=== PATIENT | female | born 1970 | race Caucasian/White ===

== ENCOUNTER 2017-08-23 11:31 | Emergency (ER) | payer OTHER, SELFPAY ==
[2017-08-23 12:06] VITALS: BP 148/81; PULSE 94; RESP 20; TEMP 37.7; O2SAT 99; BMI 51.5
--- NOTE | 2017-08-23 12:28 | HMH.EDUTC ---
[facility] [place] Disposition Clinical Impression: Strep throat, Exposure to influenza Disposition: Home, Self-Care Condition on Discharge: Good Instructions: How to Avoid a Cold or Flu, DI for Strep Throat Additional Instructions: * You had an injection of bicillin so no further antibiotics are necessary. * change toothbrush and toothpaste 24-48 hours after starting antibiotic * Monitor Temp. Tylenol every 4 hours as needed no more then 5 times a day or 4000mg in 24 hours and/or ibuprofen every 6 hours as needed no more then 3200mg in 24 hours (as long as your primary care doctor has told you that it is ok to take both) for fever/aches/pain. ER if fever no less than 101 despite tylenol and Ibuprofen * Encourage fluids, water, gatorade, powerade, pedialyte if /toddler/child * cold fluids, popsicles, ice cream feel good * you are contagious until you have taken the antibiotic for 24 hours. * Avoid kissing anyone, including parents. No eating or drinking after anyone. You are contagious. Referrals: Darwin Montana MD [Primary Care Provider] - ( Follow up IMMEDIATELY for new or worsening symptoms OR no noticeable improvement over the next 24-48 hours. 911 for difficulty breathing or swallowing ) Forms: Work/School Release Time of Disposition: 12:33 Medical Decision Making Vital Signs: 08/23/17 12:06 Temperature 99.8 F H Temperature Source Temporal Artery Scan Pulse Rate [Right Brachial] 94 H Respiratory Rate 20 Blood Pressure [Right Arm] 148/81 Blood Pressure Mean [Right Arm] 103 Blood Pressure Source [Right Arm] Automatic Cuff Blood Pressure Position [Right Arm] Sitting 02 Sat by Pulse Oximetry 99 Oxygen Delivery Method Room Air - Lab Data Lab results reviewed: Yes: I reviewed the patient's lab results. Flu A neg Flu B neg Strep positive Orders (Tests/Meds): ED MEDICATIONS Discontinued Medications Generic Name Dose Route Start Last Admin Trade Name Freq PRN Reason Stop Dose Admin Penicillin G Benzathine 1,200,000 unit 08/23/17 12:28 08/23/17 12:35 Bicillin La 1,200,000 Units/2ml Syringe IM 08/23/17 12:29 1,200,000 unit ONCE ONE Administration Protocol - Willi Inquiry Pt receiving controlled substance: No - Reevaluation(s) Time: 12:25 Reevaluation #1: Discussed allergies with pt. 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 Aware computer list PCN G. States PCP told her parents she was allergic as an but she knows for a fact that she has taken amoxicillin and rocephin without difficulty and possibly even augment and PCN injection but can't be sure . She wants the injection aware it is a PCN and the risk for side effects. She states she will monitor for a reaction but feels confident she can take it. [facility] [place] HPI - General Stated complaint: body aches, fever, sore throat Time Seen by Provider: 08/23/17 12:15 Mode of Arrival: Ambulatory Source of Information: Patient Limitations: No Limitations Description of Symptoms (Recalled from Triage Doc. by RN): SORE THROAT, BODYACHES, FEVER HEENT Symptoms (Recalled from RN notes): Yes (SORE THROAT) Resp Symptoms (Recalled from RN notes): No Skin Symptoms (Recalled from RN notes): No MS Symptoms (Recalled from RN notes): Yes (BODYACHES) Functional Status (Recalled from RN notes): N/A - History of Present Illness Provider Complaint: c/o waking up yesterday with mild sore throat. Didn't think much of it then suddenly at 4:15pm, fever, aches, chills. Tyelnol and motrin took hours to drop temp to normal last night but did eventually help. Feels worse this morning. Thinks exposed to flu at work. Son dx flu B today at same time as patient's visit. - Related Data Allergies Allergy/AdvReac Type Severity Reaction Status Date / Time cefaclor [CEFACLOR] Allergy Intermediate I-RASH Verified 08/23/17 12:38 diphenhydramine Allergy Intermediate CRAZY Verified 08/23/17 12:38 [DIPHE
--- NOTE | 2017-08-23 12:32 | ED_ITS ---
[facility] [place] Clinical Impression: Strep throat, Exposure to influenza Disposition: Home, Self-Care Condition on Discharge: Good Instructions: How to Avoid a Cold or Flu, DI for Strep Throat Additional Instructions: * You had an injection of bicillin so no further antibiotics are necessary. * change toothbrush and toothpaste 24-48 hours after starting antibiotic * Monitor Temp. Tylenol every 4 hours as needed no more then 5 times a day or 4000mg in 24 hours and/or ibuprofen every 6 hours as needed no more then 3200mg in 24 hours (as long as your primary care doctor has told you that it is ok to take both) for fever/aches/pain. ER if fever no less than 101 despite tylenol and Ibuprofen * Encourage fluids, water, gatorade, powerade, pedialyte if /toddler/ child * cold fluids, popsicles, ice cream feel good * you are contagious until you have taken the antibiotic for 24 hours. * Avoid kissing anyone, including parents. No eating or drinking after anyone. You are contagious. Referrals: Darwin Montana MD [Primary Care Provider] - ( Follow up IMMEDIATELY for new or worsening symptoms OR no noticeable improvement over the next 24-48 hours. 911 for difficulty breathing or swallowing ) Forms: Work/School Release Time of Disposition: 12:33 Medical Decision Making Vital Signs: 08/23/17 12:06 Temperature 99.8 F H Temperature Source Temporal Artery Scan Pulse Rate [Right Brachial] 94 H Respiratory Rate 20 Blood Pressure [Right Arm] 148/81 Blood Pressure Mean [Right Arm] 103 Blood Pressure Source [Right Arm] Automatic Cuff Blood Pressure Position [Right Arm] Sitting 02 Sat by Pulse Oximetry 99 Oxygen Delivery Method Room Air - Lab Data Lab results reviewed: Yes: I reviewed the patient's lab results. Flu A neg Flu B neg Strep positive Orders (Tests/Meds): ED MEDICATIONS Discontinued Medications Generic Name Dose Route Start Last Admin Trade Name Freq PRN Reason Stop Dose Admin Penicillin G Benzathine 1,200,000 unit 08/23/17 12:28 08/23/17 12:35 Bicillin La 1,200,000 Units/2ml Syringe IM 08/23/17 12:29 1,200,000 unit ONCE ONE Administration Protocol - Willi Inquiry Pt receiving controlled substance: No - Reevaluation(s) Time: 12:25 Reevaluation #1: Discussed allergies with pt. 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 Aware computer list PCN G. States PCP told her parents she was allergic as an infant but she knows for a fact that she has taken amoxicillin and rocephin without difficulty and possibly even augment and PCN injection but can't be sure . She wants the injection aware it is a PCN and the risk for side effects. She states she will monitor for a reaction but feels confident she can take it. [facility] [place] - General Stated complaint: body aches, fever, sore throat Time Seen by Provider: 08/23/17 12:15 Mode of Arrival: Ambulatory Source of Information: Patient Limitations: No Limitations Description of Symptoms (Recalled from Triage Doc. by RN): SORE THROAT, BODYACHES, FEVER HEENT Symptoms (Recalled from RN notes): Yes (SORE THROAT) Resp Symptoms (Recalled from RN notes): No Skin Symptoms (Recalled from RN notes): No MS Symptoms (Recalled from RN notes): Yes (BODYACHES) Functional Status (Recalled from RN notes): N/A - History of Present Illness Provider Complai
[2017-08-23 12:47] VITALS: BP 148/81; PULSE 94; RESP 20; TEMP 37.7; O2SAT 99
[2017-08-23 12:48] LABS: UTC Influenza A Antigen Negative (Negative); UTC Influenza B Antigen Negative (Negative); UTC Strep Screen (Rapid) Positive (Negative)
== END 2017-08-23 12:48 | disposition home or self-care (01) ==
PROVIDERS: Emergency Provider Nurse Practitioner Family; Family Provider Internal Medicine Adolescent Medicine; PCP Internal Medicine Adolescent Medicine
DX: J02.0 Streptococcal pharyngitis (principal); F41.8 Other specified anxiety disorders; Z20.828 Contact with and (suspected) exposure to other viral communicable diseases; Z88.1 Allergy status to other antibiotic agents
CPT/HCPCS: 87804; 87880; 96372; 99202; J0561

== ENCOUNTER 2018-07-07 11:12 | Inpatient (IN) ==
--- NOTE | 2018-07-07 11:34 | Emergency Department Note ---
[facility] [place] Clinical Impression: Pneumonia Qualifiers: Pneumonia type: due to unspecified organism Laterality: bilateral Lung location: unspecified part of lung Qualified Code(s): J18.9 - Pneumonia, unspecified organism Disposition: Xfer Other Condition on Discharge: Fair Additional Instructions: Based on CXR/decreasing sats, will transfer patient to ER for possible admission. Referrals: Darwin Montana MD [Primary Care Provider] - Time of Disposition: 12:52 Medical Decision Making - Willi Inquiry Pt receiving controlled substance: No Vital Signs: 07/07/18 11:24 Temperature 99.2 F Temperature Source Oral Pulse Rate [Left Radial] 117 H Respiratory Rate 18 Blood Pressure [Right Arm] 125/68 Blood Pressure Mean [Right Arm] 87 Blood Pressure Source [Right Arm] Automatic Cuff Blood Pressure Position [Right Arm] Sitting 02 Sat by Pulse Oximetry 91 L Oxygen Delivery Method Room Air - Lab Data Lab results reviewed: Yes: I reviewed the patient's lab results. Lab Results 07/07/18 11:13: Influenza Type A Ag Negative, Influenza Type B Ag Negative rapid flu Orders (Tests/Meds): ORDERS Category Date Time Status CXR 2 view (NOT portable) [XR chest 2V] Stat Exams 07/07/18 11:47 Taken - Radiology Data #1 Image(s): Chest Image Reviewed: Yes I reviewed the patient's radiology image Preliminary Findings: Abnormal [facility] [place]PI - General Stated complaint: vomiting,fever,achey Time Seen by Provider: 07/07/18 11:34 Mode of Arrival: Wheelchair Source of Information: Patient Limitations: No Limitations Description of Symptoms (Recalled from Triage Doc. by RN): c/o aching, fever, vomiting and cough since yesterday HEENT Symptoms (Recalled from RN notes): Yes (fever, aches) Resp Symptoms (Recalled from RN notes): Yes (cough, congestion) Skin Symptoms (Recalled from RN notes): No MS Symptoms (Recalled from RN notes): No Functional Status (Recalled from RN notes): wnl - History of Present Illness Onset (ago): day(s) Location: head, chest Severity: moderate Consistency: intermittent Relieving factors: none Exacerbating factors: none Treatments prior to arrival: NSAID - Related Data Allergies Allergy/AdvReac Type Severity Reaction Status Date / Time cefaclor [CEFACLOR] Allergy Intermediate I-RASH Verified 08/23/17 12:38 diphenhydramine Allergy Intermediate CRAZY Verified 08/23/17 12:38 [DIPHENHYDRAMINE] promethazine [From PHENERGAN] Allergy Intermediate CRAZY Verified 08/23/17 12:38 temazepam [TEMAZEPAM] Allergy Intermediate CRAZY Verified 08/23/17 12:38 penicillin G [PENICILLIN G] Allergy Unknown Verified 08/23/17 12:38 - Worker's Comp Is this a Worker's Comp case?: No [facility] History - Hepatitis A Screen Drug use history?: No High risk sexual behaviors?: No History of sexually transmitted infection?: No Currently employed?: No Childcare worker?: No Do you have indoor plumbing?: Yes Do you have electricity?: Yes Attestation statement:: This patient has been screened for Hepatitis A risk factors. I have reviewed the patient's past medical history: Yes Medical History: Reports:: Anxiety, Depression Denies:: Cancer, Diabetes Mellitus Type 1, Diabetes Mellitus Type 2, Hypertension, MRSA Laterality Cases: Bilateral: Tonsillectomy Other Surgeries: Yes: , Tubal Ligation, Other (cholecystectomy and tonsillectomy) Amputation: No - Social History Smoking Status: Never smoker Alcohol Intake: never - Psychiatric History Expresses thoughts of harming self/others: None Suicide Plan Description: No Plan Pschychiatric History:: Reports:: Anxiety, Depression ROS Obtained: Yes Systems reviewed as appropriate & no additional complaints - Constitutional Constitutional: Reports body ache, Reports chills, Reports lethargy, Reports weakness - ENT Ears, Nose, Mouth, and Throat: Denies otalgia, Reports nasal discharge, Reports sinus pressure, Reports sore throat - Cardiovascular Cardiovascular: Denies chest pain - Respiratory Respiratory: Yes chest congestion, Yes cough, Yes wheezing - Gastrointestinal Gastrointestingal: Reports: nausea, vomiting - Integumentary/Breasts Skin/Breast: Denies rash Physical Exam - General General appearance: alert, other (mild distress noted) - Head Head exam: atraumatic, normocephalic - Expanded ENT Exam Nose exam: Present: sinus tenderness Throat exam: Present: tonsillar erythema - Neck Neck exam: Present: normal inspection - Respiratory Respiratory exam: Present: wheezes, other - Expanded Respiratory Exam Location: Left: wheezes, rales, Right: wheezes, rales, Upper: wheezes, rales, Lower: wheezes, rales - Cardiovascular Cardiovascular exam: Present: tachycardia - Abdominal Exam Abdominal exam: Present: soft - Neurological Exam Neurological exam: Present: alert, oriented X3 - Skin Skin exam: Present: warm, dry, intact, normal color
--- NOTE | 2018-07-07 13:21 | Emergency Department Note ---
ED Disposition Clinical Impression: Hypoxia Community acquired pneumonia Qualifiers: Laterality: right Lung location: upper lobe of lung Qualified Code(s): J18.1 - Lobar pneumonia, unspecified organism Disposition: Still a Patient Condition on Discharge: Fair Additional Instructions: Based on CXR/decreasing sats, will transfer patient to ER for possible admission. Referrals: Darwin Montana MD [Primary Care Provider] - - Critical Care Critical Care Time: No Attestation: On 07/07/18, the high probability of a clinically significant, sudden or life threatening deterioration of the following system(s) required my full and direct attention, intervention and personal management. The time I documented below is in addition to time spent performing reported procedures but includes the following listed in this critical care notation. Medical Decision Making - Willi Inquiry Pt receiving controlled substance: No Vital Signs: 07/07/18 11:24 07/07/18 13:06 Temperature 99.2 F Temperature Source Oral Pulse Rate [Left Radial] 117 H 112 H Respiratory Rate 18 28 H Blood Pressure [Right Arm] 125/68 116/64 Blood Pressure Mean [Right Arm] 87 81 Blood Pressure Source [Right Arm] Automatic Cuff Automatic Cuff Blood Pressure Position [Right Arm] Sitting Sitting 02 Sat by Pulse Oximetry 91 L 94 L Oxygen Delivery Method Room Air Nasal Cannula Oxygen Flow Rate (LPM) 2 - Lab Data Lab Results 07/07/18 11:13: Influenza Type A Ag Negative, Influenza Type B Ag Negative 07/07/18 13:10: WBC 32.4 H*, RBC 4.43, Hgb 11.8 L, Hct 38.1, MCV 86.0, MCH 26.7 L, MCHC 31.1 L, RDW 14.6, Plt Count 295, MPV 7.5, Neut % (Auto) 92.9 H, Lymph % (Auto) 3.4 L, Crawford % (Auto) 2.6, Eos % (Auto) 0.8, Baso % (Auto) 0.3, Neut # (Auto) 30.1 H, Lymph # (Auto) 1.1, Crawford # (Auto) 0.9, Eos # (Auto) 0.3, Baso # (Auto) 0.1, Total Counted 100, Neutrophils % (Manual) 89 H, Band Neutrophils % 6.0, Lymphocytes % (Manual) 3 L, Monocytes % (Manual) 2, Platelet Estimate Normal, RBC Morphology Not Reportable 07/07/18 13:10: Sodium 138, Potassium 3.4 L, Chloride 103, Carbon Dioxide 22, Anion Gap 16.4 H, BUN 14, Creatinine 1.00, Estimated Creat Clear 59, Estimated GFR 59, Est GFR ( Amer) 71, Glucose 157 H, Calcium 8.6, Total Bilirubin 0.7, AST 14 L, ALT 22, Alkaline Phosphatase 67, Total Protein 7.3, Albumin 3.3 L , Globulin 4.0 H, Albumin/Globulin Ratio 0.8 L 07/07/18 13:10: Lactate 2.8 H Result diagrams: 07/07/18 13:10 07/07/18 13:10 Orders (Tests/Meds): ED MEDICATIONS Generic Name Dose Route Start Last Admin Trade Name Freq PRN Reason Stop Dose Admin Levofloxacin/Dextrose 750 mg in 150 mls @ 100 mls/hr 07/07/18 14:00 Levofloxacin 750mg/150ml Premix IV 07/21/18 13:59 Q24H MONI Protocol Sodium Chloride 10 ml 07/07/18 13:08 Saline Flush 10ml Syringe IV 08/06/18 13:07 NEEDED PRN Maintain IV Site Sodium Chloride 3 ml 07/07/18 13:14 Sodium Chloride 3% 15ml Neb IH 08/06/18 13:13 ONCE PRN INDUCE SPUTUM COLLECTION ORDERS Category Date Time Status Blood Culture Stat Micro 07/07/18 13:10 Received Sputum Culture & Gram Stain Stat Micro 07/07/18 13:29 Ordered - Radiology Data #1 Image(s): Chest Image Reviewed: Yes I have reviewed radiologist's interpretation Right upper lobe infiltrate. Lingular atelectasis versus infiltrate. - Physician Consults Physician Consulted: Tamanna Montana Time: 13:59 Reason -: Admission Comment/Response: Agrees to admit the patient to the hospital. We discussed the patient's clinical information, including history, exam, laboratory and radiology results and ED course. Per hospital procedure, I will write temporary bridge inpatient orders on the patient. Specific orders requested by the admitting physician: Continue oxygen, nebulizer treatments, Levaquin General Adult HPI - General Stated complaint: vomiting,fever,achey Time Seen by Provider: 07/07/18 13:18 Mode of Arrival: Wheelchair Source of Information: Patient Limitations: No Limitations Description of Symptoms (Recalled from ER Triage Doc. by RN): c/o aching, fever, vomiting and cough since yesterday - History of Present Illness HPI narrative: Sick for 2 weeks, thought it was a respiratory virus. Over the past 48 hours is worsened with shortness of air, productive cough, fever. Seen at the urgent treatment center and has a right upper lobe pneumonia. Hypoxic with a pulse ox of 88% on arrival. Placed on oxygen. Given 2 breathing treatments, DuoNeb and Xopenex. [place] improved after Xopenex. Sent to emergency department. Prior history of pneumonia many years ago. Former smoker. 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 Onset (ago): day(s) Location: head, chest Severity: moderate Relieving factors: none Exacerbating factors: none Treatments prior to arrival: NSAID - Related Data Allergies Allergy/AdvReac Type Severity Reaction Status Date / Time cefaclor [CEFACLOR] Allergy Intermediate I-RASH Verified 08/23/17 12:38 diphenhydramine Allergy Intermediate CRAZY Verified 08/23/17 12:38 [DIPHENHYDRAMINE] promethazine [From PHENERGAN] Allergy Intermediate CRAZY Verified 08/23/17 12:38 temazepam [TEMAZEPAM] Allergy Intermediate CRAZY Verified 08/23/17 12:38 penicillin G [PENICILLIN G] Allergy Unknown Verified 08/23/17 12:38 [facility] History - Hepatitis A Screen Drug use history?: No High risk sexual behaviors?: No History of sexually transmitted infection?: No Currently employed?: No Childcare worker?: No Do you have indoor plumbing?: Yes Do you have electricity?: Yes Attestation statement:: This patient has been screened for Hepatitis A risk factors. I have reviewed the patient's past medical history: Yes Medical History: Reports:: Anxiety, Depression Denies:: Cancer, Diabetes Mellitus Type 1, Diabetes Mellitus Type 2, Hypertension, MRSA Laterality Cases: Bilateral: Tonsillectomy Other Surgeries: Yes: , Tubal Ligation, Other (cholecystectomy and tonsillectomy) Amputation: No - Social History Smoking Status: Never smoker Alcohol Intake: never - Psychiatric History Expresses thoughts of harming self/others: None Suicide Plan Description: No Plan Pschychiatric History:: Reports:: Anxiety, Depression ROS Obtained: Yes All systems reviewed & no additional complaints - Constitutional Constitutional: Reports fever(s) - ENT Ears, Nose, Mouth, and Throat: Reports nasal discharge - Cardiovascular Cardiovascular: Denies chest pain - Respiratory Respiratory: Yes cough, Yes dyspnea, Yes excessive phlegm production Physical Exam - General General appearance: alert, other (mild distress noted) - Head Head exam: atraumatic, normocephalic - Eye Eye exam: Present: normal appearance, PERRL, EOMI - ENT ENT exam: Present: mucous membranes moist - Neck Neck exam: Present: normal inspection, trachea midline - Chest Chest inspection: Present: normal inspection, symmetric chest wall rise - Respiratory Respiratory exam: Present: normal lung sounds bilaterally - Cardiovascular Cardiovascular exam: Present: normal rhythm, tachycardia, normal heart sounds - Abdominal Exam Abdominal exam: Present: soft. Absent: distention, tenderness - Extremities Exam Extremities exam: Present: normal inspection - Neurological Exam Neurological exam: Present: alert, oriented X3 - Psychiatric Psychiatric exam: Present: normal affect, normal mood - Skin Skin exam: Present: warm, dry
[2018-07-07 13:26] LABS: Basophils # 0.1 K/mm3 (0-0.2); Basophils % 0.3 % (0.1-2.0); Eosinophils # 0.3 K/mm3 (0.0-0.4); Eosinophils % 0.8 % (0.1-12.0); Hematocrit 38.1 % (37.0-47.0); Hemoglobin 11.8 g/dL (12.2-16.2); Lymphocytes # 1.1 K/mm3 (0.7-4.5); Lymphocytes % 3.4 % (10-50); Mean Corpuscular HGB Conc 31.1 g/dL (31.8-35.4); Mean Corpuscular Hemoglobin 26.7 pg (27.0-31.2); Mean Platelet Volume 7.5 fl (7.4-10.4); Monocytes # 0.9 K/mm3 (0.1-1.0); Monocytes % 2.6 % (1.7-9.3); Neutrophils # 30.1 K/mm3 (1.8-7.8); Neutrophils % 92.9 % (37.0-80.0); Platelet Count 295 K/mm3 (142-424); Red Blood Count 4.43 M/mm3 (4.20-5.40); Red Cell Distribution Width 14.6 % (11.5-17.5); White Blood Count 32.4 K/mm3 (4.8-10.8)
[2018-07-07 13:37] LABS: Albumin Level 3.3 gm/dL (3.4-5.0); Albumin/Globulin Ratio 0.8 (1.1-1.8); Anion Gap 16.4 mEq/L (5-15); Bilirubin,Total 0.7 mg/dL (0.2-1.0); Calcium 8.6 mg/dL (8.5-10.1); Potassium 3.4 mmoL/L (3.5-5.1); Total Protein,Serum 7.3 gm/dL (6.4-8.2)
[2018-07-07 13:57] LABS: Lymphocytes % 3 % (10-50); Monocytes % 2 % (2-9); Neutrophils % 89 % (42-76); Total Cells Counted 100
--- NOTE | 2018-07-07 15:22 | Pharmacy Consult Notes ---
[facility] Pharmacy VTE Monitoring - Patient Demographics Admission date: 07/07/18 Report Date: 07/07/18 Time: 15:22 Allergies/Adverse Reactions: Patient Allergies cefaclor [CEFACLOR] Allergy (Intermediate, Verified 08/23/17 12:38) I-RASH diphenhydramine [DIPHENHYDRAMINE] Allergy (Intermediate, Verified 08/23/17 12:38) CRAZY promethazine [From PHENERGAN] Allergy (Intermediate, Verified 08/23/17 12:38) CRAZY temazepam [TEMAZEPAM] Allergy (Intermediate, Verified 08/23/17 12:38) CRAZY penicillin G [PENICILLIN G] Allergy (Unknown, Verified 08/23/17 12:38) Height: 1.63 m Weight: 145.15 kg Patient Problems: Current Active Problems Community acquired pneumonia (Acute) Hypoxia (Acute) - VTE Risk Labs: VTE Related Lab Results Hgb 11.8 g/dL (12.2-16.2) L 07/07/18 13:10 Hct 38.1 % (37.0-47.0) 07/07/18 13:10 Plt Count 295 K/mm3 (142-424) 07/07/18 13:10 BUN 14 mg/dL (7-18) 07/07/18 13:10 Creatinine 1.00 mg/dL (0.55-1.02) 07/07/18 13:10 Estimated Creat Clear 59 mL/min (50-200) 07/07/18 13:10 - Prophylaxis VTE Prophylaxis Ordered?: Yes Types of VTE Prophylaxis: TEDS Knee High Location of Applied Device: Bilateral Lower Extremeties - VTE Diagnosis Confirmed Treatment or plan recommended: Continue Current Treatment
--- NOTE | 2018-07-07 19:19 | History & Physical Report ---
*Admission Date: 07/07/18 *Chief complaint: Short of breath, fever *History of present illness: Ms. Escamilla is a 48-year-old female who initially presented to clinic today due to symptoms. [place] so bad she ended up going to the emergency room for more me treatment. Upon admission to the emergency room she reported shortness of breath, coughing with posttussive emesis, and fever to 101/102. Patient reports her mother was sick several weeks ago with a viral illness. Symptoms actually began approximately a month ago with suspected viral illness but had progressed to their severity over the past week. Complains of severe headache with coughing, Shortness of breath, tachycardia, productive cough. No antibiotics or steroids recently, not on oxygen at home [facility] History I have reviewed the patient's past medical history: Yes Medical History: Reports:: Anxiety, Depression Denies:: Cancer, Diabetes Mellitus Type 1, Diabetes Mellitus Type 2, Hypertension, MRSA Laterality Cases: Bilateral: Arthroscopy Knee, Tonsillectomy Other Surgeries: Yes: Cholecystectomy, , Tubal Ligation, Other (ablasion) Amputation: No - *Social History Educational Level: Completed College Smoking Status: Former smoker Alcohol Intake: current Alcohol Intake Frequency:: holidays/special occasions only Occupational Status: employed Housing: house Household Members: spouse - Psychiatric History Expresses thoughts of harming self/others: None Suicide Plan Description: No Plan Pschychiatric History:: Reports:: Anxiety, Depression *Family Hx:: Hyperlipidemia, Hypertension Review of Systems - Review of Systems Review of systems:: pertinent systems reviewed and negative unless documented below - *Neurologic Reports weakness Meds Home Medications Medication Instructions Recorded Confirmed Type Fluoxetine HCl 20 mg PO HS 07/07/18 07/07/18 History Metformin HCl 500 mg PO BID 07/07/18 07/07/18 History Allergies Allergy/AdvReac Type Severity Reaction Status Date / Time cefaclor [CEFACLOR] Allergy Intermediate I-RASH Verified 08/23/17 12:38 diphenhydramine Allergy Intermediate CRAZY Verified 08/23/17 12:38 [DIPHENHYDRAMINE] promethazine [From PHENERGAN] Allergy Intermediate CRAZY Verified 08/23/17 12:38 temazepam [TEMAZEPAM] Allergy Intermediate CRAZY Verified 08/23/17 12:38 penicillin G [PENICILLIN G] Allergy Unknown Verified 08/23/17 12:38 Exam Vital signs and Labs for Last 24 Hours: Temp Pulse Resp BP Pulse Ox 98 F 109 H 28 H 155/84 H 93 L 07/07/18 15:33 07/07/18 15:33 07/07/18 15:33 07/07/18 15:33 07/07/18 18:04 Laboratory Results - last 24 hr 07/07/18 11:13: Influenza Type A Ag Negative, Influenza Type B Ag Negative 07/07/18 13:10: WBC 32.4 H*, RBC 4.43, Hgb 11.8 L, Hct 38.1, MCV 86.0, MCH 26.7 L, MCHC 31.1 L, RDW 14.6, Plt Count 295, MPV 7.5, Neut % (Auto) 92.9 H, Lymph % (Auto) 3.4 L, [place] % (Auto) 2.6, Eos % (Auto) 0.8, Baso % (Auto) 0.3, Neut # (Auto) 30.1 H, Lymph # (Auto) 1.1, [place] # (Auto) 0.9, Eos # (Auto) 0.3, Baso # (Auto) 0.1, Total Counted 100, Neutrophils % (Manual) 89 H, Band Neutrophils % 6.0, Lymphocytes % (Manual) 3 L, Monocytes % (Manual) 2, Platelet Estimate Normal, RBC Morphology Not Reportable 07/07/18 13:10: Sodium 138, Potassium 3.4 L, Chloride 103, Carbon Dioxide 22, Anion Gap 16.4 H, BUN 14, Creatinine 1.00, Estimated Creat Clear 59, Estimated GFR 59, Est GFR ( Amer) 71, Glucose 157 H, Calcium 8.6, Total Bilirubin 0.7, AST 14 L, ALT 22, Alkaline Phosphatase 67, Total Protein 7.3, Albumin 3.3 L , Globulin 4.0 H, Albumin/Globulin Ratio 0.8 L 07/07/18 13:10: Lactate 2.8 H 07/07/18 17:35: Lactate 2.9 H I & O for Last 24 hours: Intake & Output 07/04/18 07/05/18 07/06/18 07/07/18 23:59 23:59 23:59 23:59 Intake Total 240 / 240 Balance 240 / 240 Weight 149.43 kg Microbiology Reports for the Last 24 Hours: Microbiology 07/07/18 13:29 Sputum - Expectorated Sputum Gram Stain - Final - Constitutional mild distress, obese - *Routine HEENT Exam Head: Present: normocephalic, atraumatic Eye: Present: EOMI, PERRL ENT: Present: mucous membranes moist, dentition normal - *Routine Neck Exam Present: supple. Absent: full ROM, JVD - *Routine Respiratory Exam Present: accessory muscle use, rales, respiratory distress, wheezes - *Routine Cardiovascular Exam Present: Normal S1, Normal S2, tachycardia. Absent: murmur - *Routine Abdominal Exam Present: soft, normoactive bowel sounds - *Routine Rectal Exam Patient deferred: visual exam - *Routine Exam Patient deferred: external exam - *Routine Extremities Exam Absent: cyanosis, clubbing, edema - *Routine Skin Exam Present: intact. Absent: cyanosis, erythema - *Routine Neurological Exam Present: alert, oriented X3. Absent: altered mental status Assessment and Plan (1) Severe sepsis Current visit: Yes Status: Acute Category: Medical Code(s): A41.9 - Sepsis, unspecified organism; R65.20 - Severe sepsis without septic shock Tachycardic greater than 90, white count greater than 14, suspected source with pneumonia, lactate 2.9 on admission. -Blood culture, sputum culture obtained -fluid bolus given -Initiated on broad-spectrum antibiotics with Levaquin due to allergies - (2) Leukocytosis Current visit: Yes Status: Acute Category: Medical Code(s): D72.829 - Elevated white blood cell count, unspecified Due to pneumonia -Monitor for improvement with a.m. labs (3) Community acquired pneumonia Current visit: Yes Status: Acute Qualifiers: Laterality: right Lung location: upper lobe of lung Qualified Code(s): J18.1 - Lobar pneumonia, unspecified organism Category: Medical Code(s): J18.9 - Pneumonia, unspecified organism Unknown etiology, workup for sepsis as per above -Continue supplemental oxygen, goal oxygen sat greater than 88 while asleep, greater than 92 while awake -Incentive spirometry -Treatments with Xopenex (4) Hypoxia Current visit: Yes Status: Acute Category: Medical Code(s): R09.02 - Hypoxemia
[2018-07-08 07:18] LABS: Basophils % 0.2 % (0.1-2.0); Eosinophils # 0.1 K/mm3 (0.0-0.4); Eosinophils % 0.3 % (0.1-12.0); Hematocrit 33.1 % (37.0-47.0); Lymphocytes # 2.8 K/mm3 (0.7-4.5); Lymphocytes % 14.1 % (10-50); Mean Corpuscular HGB Conc 30.8 g/dL (31.8-35.4); Mean Corpuscular Hemoglobin 26.5 pg (27.0-31.2); Mean Corpuscular Volume 86.1 fl (81-99); Mean Platelet Volume 7.4 fl (7.4-10.4); Monocytes # 0.5 K/mm3 (0.1-1.0); Monocytes % 2.6 % (1.7-9.3); Neutrophils # 16.3 K/mm3 (1.8-7.8); Neutrophils % 82.8 % (37.0-80.0); Platelet Count 219 K/mm3 (142-424); Red Blood Count 3.84 M/mm3 (4.20-5.40); Red Cell Distribution Width 14.8 % (11.5-17.5); White Blood Count 19.7 K/mm3 (4.8-10.8)
[2018-07-08 07:21] LABS: Calcium 8.2 mg/dL (8.5-10.1)
[2018-07-08 07:48] LABS: Hemoglobin 10.2 g/dL (12.2-16.2)
[2018-07-08 09:59] LABS: Eosinophils % 1 % (0-3); Lymphocytes % 12 % (10-50); Monocytes % 3 % (2-9); Neutrophils % 84 % (42-76); Total Cells Counted 100
[2018-07-08 10:00] LABS: Hypochromasia 1+
--- NOTE | 2018-07-08 11:30 | Progress Note ---
Internal Medicine - PN: Subj *Date: 07/08/18 *Time: 11:25 Interval history: Patient did well overnight. Complains of loose stools, 4 times in the past 12 hours. Suspect due to antibiotics or IV fluids. Otherwise remained afebrile, symptoms defervesced [place]. Stable on 2 L nasal cannula oxygen. Using incentive spirometer. Denies any nausea, vomiting, headache, chest pain. Cough somewhat wet Exam Vital signs and Labs for Last 24 Hours: Temp Pulse Resp BP Pulse Ox 97.5 F L 81 18 107/56 L 94 L 07/08/18 08:00 07/08/18 08:00 07/08/18 08:00 07/08/18 08:00 07/08/18 08:00 Laboratory Results - last 24 hr 07/07/18 11:13: Influenza Type A Ag Negative, Influenza Type B Ag Negative 07/07/18 13:10: WBC 32.4 H*, RBC 4.43, Hgb 11.8 L, Hct 38.1, MCV 86.0, MCH 26.7 L, MCHC 31.1 L, RDW 14.6, Plt Count 295, MPV 7.5, Neut % (Auto) 92.9 H, Lymph % (Auto) 3.4 L, [place] % (Auto) 2.6, Eos % (Auto) 0.8, Baso % (Auto) 0.3, Neut # (Auto) 30.1 H, Lymph # (Auto) 1.1, [place] # (Auto) 0.9, Eos # (Auto) 0.3, Baso # (Auto) 0.1, Total Counted 100, Neutrophils % (Manual) 89 H, Band Neutrophils % 6.0, Lymphocytes % (Manual) 3 L, Monocytes % (Manual) 2, Platelet Estimate Normal, RBC Morphology Not Reportable 07/07/18 13:10: Sodium 138, Potassium 3.4 L, Chloride 103, Carbon Dioxide 22, Anion Gap 16.4 H, BUN 14, Creatinine 1.00, Estimated Creat Clear 59, Estimated GFR 59, Est GFR ( Amer) 71, Glucose 157 H, Calcium 8.6, Total Bilirubin 0.7, AST 14 L, ALT 22, Alkaline Phosphatase 67, Total Protein 7.3, Albumin 3.3 L , Globulin 4.0 H, Albumin/Globulin Ratio 0.8 L 07/07/18 13:10: Lactate 2.8 H 07/07/18 17:35: Lactate 2.9 H 07/07/18 20:00: Lactate 1.6 07/08/18 06:54: WBC 19.7 H D, RBC 3.84 L, Hgb 10.2 L D, Hct 33.1 L, MCV 86.1, MCH 26.5 L, MCHC 30.8 L, RDW 14.8, Plt Count 219 D, MPV 7.4, Neut % (Auto) 82.8 H, Lymph % (Auto) 14.1, [place] % (Auto) 2.6, Eos % (Auto) 0.3, Baso % (Auto) 0.2, Neut # (Auto) 16.3 H, Lymph # (Auto) 2.8, [place] # (Auto) 0.5, Eos # (Auto) 0.1, Baso # (Auto) 0.0, Total Counted 100, Neutrophils % (Manual) 84 H, Lymphocytes % (Manual) 12, Monocytes % (Manual) 3, Eosinophils % (Manual) 1, Platelet Estimate Normal, Hypochromasia 1+ 07/08/18 06:54: Sodium 140, Potassium 3.0 L, Chloride 107, Carbon Dioxide 25, Anion Gap 11.0, BUN 12, Creatinine 0.72 D, Estimated Creat Clear 82, Estimated GFR 86, Est GFR ( Amer) 104 D, Glucose 133 H, Calcium 8.2 L I & O for Last 24 hours: Intake & Output 07/05/18 07/06/18 07/07/18 07/08/18 23:59 23:59 23:59 23:59 Intake Total 960 / 960 4156 / 4156 Balance 960 / 960 4156 / 4156 Weight 149.43 kg Microbiology Reports for the Last 24 Hours: Microbiology 07/07/18 13:29 Sputum - Expectorated Sputum Gram Stain - Final 07/07/18 13:29 Sputum - Expectorated Sputum Sputum Culture - Preliminary Narrative: - Constitutional No acute distress, obese - *Routine HEENT Exam Head: Present: normocephalic, atraumatic Eye: Present: EOMI, PERRL ENT: Present: mucous membranes moist, dentition normal - *Routine Neck Exam Present: supple. Absent: full ROM, JVD - *Routine Respiratory Exam Present: Good air movement bilaterally, Rales and crackles in right upper lobe, no wheeze - *Routine Cardiovascular Exam Present: Normal S1, Normal S2, tachycardia. Absent: murmur - *Routine Abdominal Exam Present: soft, normoactive bowel sounds - *Routine Rectal Exam Patient deferred: visual exam - *Routine Exam Patient deferred: external exam - *Routine Extremities Exam Absent: cyanosis, clubbing, edema - *Routine Skin Exam Present: intact. Absent: cyanosis, erythema - *Routine Neurological Exam Present: alert, oriented X3. Absent: altered mental status Assessment and Plan (1) Severe sepsis Current visit: Yes Status: Acute Category: Medical Code(s): A41.9 - Sepsis, unspecified organism; R65.20 - Severe sepsis without septic shock (2) Leukocytosis Current visit: Yes Status: Acute Category: Medical Code(s): D72.829 - Elevated white blood cell count, unspecified (3) Community acquired pneumonia Current visit: Yes Status: Acute Qualifiers: Laterality: right Lung location: upper lobe of lung Qualified Code(s): J18.1 - Lobar pneumonia, unspecified organism Category: Medical Code(s): J18.9 - Pneumonia, unspecified organism (4) Hypoxia Current visit: Yes Status: Acute Category: Medical Code(s): R09.02 - Hypoxemia - Assessment and plan all Dx Assessment and Plan for all problems:: Continues to require inpatient management. Continue oxygen, wean today. Showing improvement in symptoms but not stable for home discharge yet. Likely transition oral antibiotics tomorrow if you get off oxygen and discharge at that time.
--- NOTE | 2018-07-09 08:23 | Discharge Summary ---
General - General Admission date:: 07/07/18 Discharge date: 07/09/18 HPI HPI: Ms. Escamilla is a 48-year-old female who initially presented to clinic today due to symptoms. [place] so bad she ended up going to the emergency room for more me treatment. Upon admission to the emergency room she reported shortness of breath, coughing with posttussive emesis, and fever to 101/102. Patient reports her mother was sick several weeks ago with a viral illness. Symptoms actually began approximately a month ago with suspected viral illness but had progressed to their severity over the past week. Complains of severe headache with coughing, Shortness of breath, tachycardia, productive cough. No antibiotics or steroids recently, not on oxygen at home Hospital Course Hospital Course: Admitted for sepsis and community acquired pneumonia. Initiated on antibiotics and supplemental oxygen. Tolerated antibiotics well with defervescence of symptoms within the first 24 hours. Able to transition off nasal cannula oxygen on day 2 of admission. Stable off oxygen for greater than 12 hours prior to discharge home. Patient had significant improvement in symptoms, cough became a little bit more productive. Denied headache, fever, chills, nausea or vomiting on day of discharge. Still has some fatigue, recommended staying home from work until follows up in the outpatient setting. Objective Vital signs: Temp Pulse Resp BP Pulse Ox 98.6 F 78 18 129/63 93 L 07/09/18 08:00 07/09/18 08:00 07/09/18 08:00 07/09/18 08:00 07/09/18 08:00 Narrative: - Constitutional No acute distress, obese - *Routine HEENT Exam Head: Present: normocephalic, atraumatic Eye: Present: EOMI, PERRL ENT: Present: mucous membranes moist, dentition normal - *Routine Neck Exam Present: supple. Absent: full ROM, JVD - *Routine Respiratory Exam Present: Good air movement bilaterally, Rales in right upper lobe, no wheeze or crackles - *Routine Cardiovascular Exam Present: Normal S1, Normal S2, tachycardia. Absent: murmur - *Routine Abdominal Exam Present: soft, normoactive bowel sounds - *Routine Rectal Exam Patient deferred: visual exam - *Routine Exam Patient deferred: external exam - *Routine Extremities Exam Absent: cyanosis, clubbing, edema - *Routine Skin Exam Present: intact. Absent: cyanosis, erythema - *Routine Neurological Exam Present: alert, oriented X3. Absent: altered mental status Results Labs on day of discharge: Labs from last 24 hours 07/08/18 06:54 Total Counted 100 Neutrophils % (Manual) 84 H Lymphocytes % (Manual) 12 Monocytes % (Manual) 3 Eosinophils % (Manual) 1 Platelet Estimate Normal Hypochromasia 1+ DS: Diagnosis - Discharge Diagnosis (1) Severe sepsis Status: Resolved (2) Leukocytosis Status: Acute (3) Community acquired pneumonia Status: Acute (4) Hypoxia Status: Resolved (5) Morbid obesity with BMI of 50.0-59.9, adult Status: Chronic Problem details: Complicates all aspects of care Discharge Plan - Patient Discharge Instructions ACTIVITY: Continue current activity DIET: continue same diet Patient Instructions: DI for Pneumonia -- Adult, DI for Hypoxia - Follow up Plan Follow up with: Rich Nolen MD [Staff Physician] - 1 week Disposition: Home, Self-Jail Medications: Home Medications Medication Instructions Recorded Confirmed Type Fluoxetine HCl 20 mg PO HS 07/07/18 07/07/18 History Metformin HCl 500 mg PO BID 07/07/18 07/07/18 History levoFLOXacin [Levaquin 750mg 750 mg PO DAILY #5 tab 07/09/18 Rx tablet] Prescriptions/Medication Reconciliation: New levoFLOXacin [Levaquin 750mg tablet] 750 mg PO DAILY #5 tab Continue Fluoxetine HCl 20 mg PO HS Metformin HCl 500 mg PO BID
== END 2018-07-09 13:30 | disposition home or self-care (01) | DRG 193 ==
LOC: UTC 11:12 → 2ND 14:15
PROVIDERS: ADMIT Internal Medicine Adolescent Medicine; ATTEND Internal Medicine Adolescent Medicine
DX: R65.20 Severe sepsis without septic shock; E66.01 Morbid (severe) obesity due to excess calories; J18.9 Pneumonia, unspecified organism; Z68.43 Body mass index [BMI] 50.0-59.9, adult
CPT/HCPCS: 36415; 71020; 71046; 80048; 80053; 83605; 85007; 85025; 87040; 87070; 87205; 87804; 94640; 94761; 96365; 96367; 99284; J1956

== ENCOUNTER → 2019-03-06 08:18 | Outpatient (CLI) | payer OTHER, SELFPAY ==
[2019-03-06 08:59] LABS: Basophils % 0.4 % (0.1-2.0); Eosinophils # 0.2 K/mm3 (0.0-0.4); Eosinophils % 2.8 % (0.1-12.0); Hematocrit 38.5 % (37.0-47.0); Hemoglobin 12.1 g/dL (12.2-16.2); Lymphocytes # 2.7 K/mm3 (0.7-4.5); Lymphocytes % 32.5 % (10-50); Mean Corpuscular HGB Conc 31.4 g/dL (31.8-35.4); Mean Corpuscular Hemoglobin 26.6 pg (27.0-31.2); Mean Corpuscular Volume 84.9 fl (81-99); Mean Platelet Volume 6.5 fl (7.4-10.4); Monocytes # 0.3 K/mm3 (0.1-1.0); Monocytes % 4.1 % (1.7-9.3); Neutrophils % 60.1 % (37.0-80.0); Platelet Count 307 K/mm3 (142-424); Red Blood Count 4.54 M/mm3 (4.20-5.40); White Blood Count 8.3 K/mm3 (4.8-10.8)
[2019-03-06 10:55] LABS: Alanine Aminotransferase 17 U/L (12-78); Albumin Level 3.7 gm/dL (3.4-5.0); Albumin/Globulin Ratio 1.2 (1.1-1.8); Alkaline Phosphatase 74 U/L (46-116); Anion Gap 14.6 mEq/L (5-15); Aspartate Amino Transferase 16 U/L (15-37); Bilirubin,Total 0.4 mg/dL (0.2-1.0); Blood Urea Nitrogen 17 mg/dL (7-18); Calcium 8.9 mg/dL (8.5-10.1); Carbon Dioxide 28 mmol/L (21.0-32.0); Chloride 105 mmol/L (98-107); Chol/HDL Ratio 3.4 (1-3.5); Cholesterol 191 mg/dL (140-200); Creatinine,Serum 0.75 mg/dL (0.55-1.02); Estimated Glomerular Filt Rate 82 ml/min (>60); GFR (African American) 99 ML/MIN (>60); Glucose 107 mg/dL (74-106); HDL Cholesterol 56 mg/dL (29-89); LDL Cholesterol 119 mg/dL (0-130); Potassium 4.6 mmoL/L (3.5-5.1); Sodium 143 mmol/L (136-145); Thyroid Stimulating Hormone 2.89 uIU/ml (0.358-3.740); Total Protein,Serum 6.7 gm/dL (6.4-8.2); Triglycerides 80 mg/dL (30-200); VLDL Cholesterol 16 mg/dL (0-40)
== END ==
PROVIDERS: Visit Provider Internal Medicine Adolescent Medicine
DX: E66.01 Morbid (severe) obesity due to excess calories (principal)
CPT/HCPCS: 36415; 80053; 80061; 83036; 84443; 85025

== ENCOUNTER → 2019-04-04 08:45 | Outpatient (CLI) | payer OTHER, SELFPAY ==
--- NOTE | 2019-04-04 08:48 | MM_ITS ---
PROCEDURE: MM DIG SCREENING MAMM BI W/CAD CLINICAL INDICATION: SCREENING There is no personal or family history of breast cancer. COMPARISON: DMSB DIG MAMM-SCREEN [place] from 06/16/2015 TECHNIQUE: Standard CC and MLO images were obtained. R2 CAD reviewed. FINDINGS: The breasts are composed primarily of fat with scattered fibroglandular densities throughout both breasts. There is no suspicious lesion and no suspicious microcalcifications. IMPRESSION: Fatty type breast parenchyma with no suspicious lesions seen BI-RAD Category: 1 Negative FOLLOW-UP: 1YR 1 Year Follow-up (A letter has been sent to the patient regarding results of the study.) Dictated by: Dr. Karthikeyan Orozco MD 04/07/2019 16:[address] Karthikeyan Orozco MD in [place] 04/07/2019 16:03
== END ==
PROVIDERS: PCP Internal Medicine Adolescent Medicine; Visit Provider Internal Medicine Adolescent Medicine
DX: Z12.31 Encounter for screening mammogram for malignant neoplasm of breast (principal)
CPT/HCPCS: 77067

== ENCOUNTER → 2019-09-18 13:30 | Outpatient (CLI) | payer OTHER, SELFPAY ==
--- NOTE | 2019-09-18 13:35 | XR_ITS ---
PROCEDURE: XR KNEE RT 4V CLINICAL INDICATION: knee pain Right knee pain COMPARISON: No exams were available for comparison FINDINGS: Are severe osteoarthritic changes at the medial compartment loss of joint space and genu varum with prominent osteophytes. There are mild osteoarthritic changes of the lateral compartment and severe osteoarthritis of the patellofemoral joint. No acute fracture or dislocation. Other findings:None. IMPRESSION: Severe osteoarthritis of the medial compartment and the patellofemoral joint Dictated by: Yadiel Haynes MD 09/18/2019 14:00 Electronically signed by Yadiel Haynes MD in [place] 09/18/2019 14:00
== END ==
PROVIDERS: PCP Internal Medicine Adolescent Medicine; Visit Provider Orthopaedic Surgery
DX: M25.561 Pain in right knee (principal)
CPT/HCPCS: 73564

== ENCOUNTER → 2020-03-27 15:00 | Outpatient (CLI) | payer OTHER, SELFPAY ==
[2020-03-27 17:49] LABS: Hemoglobin A1C 6.1 % (4.0-6.0)
== END ==
PROVIDERS: Visit Provider Internal Medicine Adolescent Medicine
DX: Z00.00 Encounter for general adult medical examination without abnormal findings (principal); E11.9 Type 2 diabetes mellitus without complications; Z79.84 Long term (current) use of oral hypoglycemic drugs
CPT/HCPCS: 83036

== ENCOUNTER → 2020-10-17 09:05 | Outpatient (CLI) | payer OTHER, SELFPAY ==
--- NOTE | 2020-10-17 09:09 | XR_ITS ---
PROCEDURE: XR KNEE RT 4V CLINICAL INDICATION: BL knee pain COMPARISON: CR XR KNEE RT 4V from 09/18/2019 FINDINGS: There is severe osteoarthritic changes of the medial compartment and patellofemoral joint which appears similar compared to 09/18/2019. Prominent endplate osteophytes are present with loss of joint space medially. No acute fracture Other findings:None. IMPRESSION: No change severe osteoarthritis of the right knee Dictated by: Yadiel Haynes MD 10/17/2020 18:35 Yadiel Haynes MD in [place] 10/17/2020 18:35
--- NOTE | 2020-10-17 09:09 | XR_ITS ---
PROCEDURE: XR KNEE LT 4V CLINICAL INDICATION: BL knee pain COMPARISON: CR XR KNEE RT 4V from 09/18/2019 FINDINGS: Severe osteoarthritic changes are present involving the medial compartment and patellofemoral joint. A 13 mm calcific density projects over the medial aspect of the intercondylar notch of the femur and may be due to an atypical osteophyte is compared to a loose body. Other findings:None. IMPRESSION: Severe osteoarthritic changes of the left knee as described above Dictated by: Yadiel Haynes MD 10/17/2020 18:34 Yadiel Haynes MD in [place] 10/17/2020 18:34
== END ==
PROVIDERS: PCP Internal Medicine Adolescent Medicine; Visit Provider Orthopaedic Surgery
DX: M17.12 Unilateral primary osteoarthritis, left knee (principal); M17.11 Unilateral primary osteoarthritis, right knee
CPT/HCPCS: 73564

== ENCOUNTER → 2021-04-22 15:27 | Outpatient (CLI) | payer OTHER, SELFPAY ==
[2021-04-22 15:57] LABS: Influenza A, PCR Not Detected (NotDetected); Influenza B, PCR Not Detected (NotDetected)
[2021-04-22 16:22] LABS: Coronavirus 19, PCR Detected (NotDetected)
== END ==
PROVIDERS: PCP Internal Medicine Adolescent Medicine; Visit Provider Internal Medicine
DX: Z20.822 Contact with and (suspected) exposure to COVID-19 (principal); U07.1 COVID-19
CPT/HCPCS: C9803; U0003; U0005

== ENCOUNTER → 2021-04-23 12:18 | Outpatient (CLI) | payer OTHER, SELFPAY ==
[2021-04-23 12:34] VITALS: BP 138/71; PULSE 94; RESP 17; TEMP 37.1; O2SAT 94
== END ==
PROVIDERS: PCP Internal Medicine Adolescent Medicine; Visit Provider Internal Medicine
DX: U07.1 COVID-19 (principal); Z23 Encounter for immunization
CPT/HCPCS: 96365

== ENCOUNTER → 2021-07-29 09:27 | Outpatient (CLI) | payer OTHER, SELFPAY | PROVIDERS: Visit Provider Nurse Practitioner | DX: Z11.52 Encounter for screening for COVID-19 (principal) ==

== ENCOUNTER 2021-08-31 13:34 | Emergency (ER) | payer OTHER, SELFPAY ==
[2021-08-31 13:46] VITALS: BP 133/91; PULSE 73; RESP 22; TEMP 36.9; O2SAT 99; BMI 52.0
--- NOTE | 2021-08-31 13:55 | HMH.EDUTC ---
[facility] [place] Impression: Bronchitis, Cough Disposition: Home, Self-Care Condition on Discharge: Good Instructions: Cough, Acute Bronchitis, Methylprednisolone, Benzonatate Additional Instructions: ? Monitor temp. Tylenol every 4 hours as needed and / or ibuprofen every 6 hours as needed ( As long as your primary care physician has told you that it ok to take both. For fever/aches/pains ER if no less than 101 despite Tylenol or Motrin ? Humidifier/vaporizer or hot steamy shower Flonase may help with Post nasal drip *Tessalon Perles will not cause drowsiness but use at bedtime to help stop cough so that you may get some rest. *Start steroid today. Helps with inflammation therefore, cough and wheezing. Follow directions on the package. Reviewed side effects. Patient reports taking them before. Follow up IMMEDIATELY for new or worsening of symptoms OR no noticeable improvement over the next 48-72 hours. 911 immediately for any life threatening symptoms such as chest pain or difficulty breathing Prescriptions: Benzonatate [Benzonatate 100mg cap] 100 mg PO Q8HP PRN #15 cap PRN Reason: Cough Transmission Status: Pending to [facility] methylPREDNISolone [Medrol 4mg tab] 4 mg PO DIRECTED #21 tab Transmission Status: Pending to [facility] Referrals: Rich Nolen MD [Primary Care Provider] - As needed Time of Disposition: 14:11 Medical Decision Making - Willi Inquiry Pt receiving controlled substance: No Willi was queried for this patient: No Vital Signs: 08/31/21 13:46 Temperature 98.4 F Temperature Source Oral Pulse Rate [Right Radial] 73 Respiratory Rate 22 Blood Pressure [Right Arm] 133/91 H Blood Pressure Mean [Right Arm] 105 Blood Pressure Source [Right Arm] Automatic Cuff Blood Pressure Position [Right Arm] Sitting 02 Sat by Pulse Oximetry 99 Oxygen Delivery Method Room Air [facility] [place] - General Stated complaint: cough Time Seen by Provider: 08/31/21 13:55 Mode of Arrival: Ambulatory Source of Information: Patient Limitations: No Limitations Description of Symptoms (Recalled from Triage Doc. by RN): Pt stated that she has a cough that has increased since Tuesday night. HEENT Symptoms (Recalled from RN notes): No Resp Symptoms (Recalled from RN notes): No Skin Symptoms (Recalled from RN notes): No MS Symptoms (Recalled from RN notes): No Functional Status (Recalled from RN notes): n/a - History of Present Illness Provider Complaint: Patient states that she has had a cough since Wed States that it has continued get worse State that she thinks it started after she done some bath fizz States that she hasnt had any sinus congestion, denies fever denies feeling ill States that she has just had a worsening cough and nonproductive - Related Data Home Medications Medication Instructions Recorded Confirmed acetaminophen 500 mg capsule 1,000 mg PO Q4H PRN cap 03/28/19 02/20/21 ibuprofen 200 mg tablet 500 mg PO QID tab 03/28/19 02/20/21 omeprazole 20 mg capsule,delayed 20 mg PO DAILY #30 cap 03/28/19 02/20/21 release metformin 500 mg tablet 500 mg PO BID tab 02/20/21 02/20/21 Previous Rx's Medication Instructions Recorded Benzonatate [Benzonatate 100mg 100 mg PO Q8HP PRN #15 cap 08/31/21 cap] methylPREDNISolone [Medrol 4mg 4 mg PO DIRECTED #21 tab 08/31/21 tab] Allergies Allergy/AdvReac Type Severity Reaction Status Date / Time diphenhydramine Allergy Intermediate CRAZY Verified 08/31/21 13:55 [DIPHENHYDRAMINE] promethazine [From PHENERGAN] Allergy Intermediate CRAZY Verified 08/31/21 13:55 temazepam [TEMAZEPAM] Allergy Intermediate CRAZY Verified 08/31/21 13:55 cefaclor [From Ceclor] Allergy Verified 02/20/21 16:29 - Worker's Comp Is this a Worker's Comp case?: No Is this an H Worker's Comp?: No Is this a [place] Worker's Comp?: No [facility] History - Hepatitis A Screen Drug use history?: No High risk sexual beh
[2021-08-31 14:21] VITALS: BP 133/91; PULSE 73; RESP 22; TEMP 37; O2SAT 99
== END 2021-08-31 14:21 | disposition home or self-care (01) ==
PROVIDERS: Emergency Provider Nurse Practitioner; PCP Internal Medicine Adolescent Medicine
DX: J20.9 Acute bronchitis, unspecified (principal); E11.9 Type 2 diabetes mellitus without complications
CPT/HCPCS: 99212; G0463

== ENCOUNTER 2021-10-15 16:07 | Emergency (ER) | payer OTHER, SELFPAY ==
[2021-10-15 16:24] VITALS: BP 154/95; PULSE 78; RESP 19; TEMP 36.9; O2SAT 93; BMI 49.6
--- NOTE | 2021-10-15 16:27 | HMH.EDUTC ---
[facility] Disposition Clinical Impression: Bronchitis Disposition: Home, Self-Care Condition on Discharge: Good Instructions: DI for Acute Bronchitis Additional Instructions: Start antibiotic today. Be sure to complete entire prescription even if feeling better Tylenol and ibuprofen as needed for pain or fever Humidifier/vaporizer/hot steamy shower Follow-up with primary care tomorrow. Follow-up immediately in the ER of the [facility] for new or worsening symptoms or no noticeable improvement over the next 48-72 hours. Marlene Osorio will not cause drowsiness to use at bedtime to help stop cough so that she can get some sleep Start steroids today. Helps with inflammation therefore coughing and wheezing. Follow directions on package. Prescriptions: Benzonatate [Benzonatate 100mg cap] 100 mg PO BID PRN 7 Days #14 cap PRN Reason: Cough Transmission Status: Pending to [facility] predniSONE [Prednisone 20mg Tab] 20 mg PO BID #10 tab Transmission Status: Pending to [facility] Azithromycin [Zithromax 250mg tab] 250 mg PO DIRECTED #6 tab Transmission Status: Pending to [facility] Referrals: Rich Nolen MD [Primary Care Provider] - Time of Disposition: 16:32 Medical Decision Making - Willi Inquiry Pt receiving controlled substance: No [facility] HPI - General Chief complaint: Urgent [facility] Stated complaint: cough Time Seen by Provider: 10/15/21 16:27 Mode of Arrival: Ambulatory Source of Information: Patient Limitations: No Limitations - History of Present Illness Provider Complaint: 51 yr old female presents for cough,dark nasal drainage, nasal congestion and sinus pressure. - Related Data Home Medications Medication Instructions Recorded Confirmed acetaminophen 500 mg capsule 1,000 mg PO Q4H PRN cap 03/28/19 08/31/21 ibuprofen 200 mg tablet 500 mg PO QID tab 03/28/19 02/20/21 omeprazole 20 mg capsule,delayed 20 mg PO DAILY #30 cap 03/28/19 02/20/21 release metformin 500 mg tablet 500 mg PO BID tab 02/20/21 02/20/21 Previous Rx's Medication Instructions Recorded Benzonatate [Benzonatate 100mg 100 mg PO Q8HP PRN #15 cap 08/31/21 cap] methylPREDNISolone [Medrol 4mg 4 mg PO DIRECTED #21 tab 08/31/21 tab] Azithromycin [Zithromax 250mg 250 mg PO DIRECTED #6 tab 10/15/21 tab] Benzonatate [Benzonatate 100mg 100 mg PO BID PRN 7 Days #14 cap 10/15/21 cap] predniSONE [Prednisone 20mg 20 mg PO BID #10 tab 10/15/21 Tab] Allergies Allergy/AdvReac Type Severity Reaction Status Date / Time diphenhydramine Allergy Intermediate CRAZY Verified 08/31/21 13:55 [DIPHENHYDRAMINE] promethazine [From PHENERGAN] Allergy Intermediate CRAZY Verified 08/31/21 13:55 temazepam [TEMAZEPAM] Allergy Intermediate CRAZY Verified 08/31/21 13:55 cefaclor [From Ceclor] Allergy Verified 02/20/21 16:29 [facility] History - Hepatitis A Screen Attestation statement:: This patient has been screened for Hepatitis A risk factors. I have reviewed the patient's past medical history: Yes Medical History: Reports:: Anxiety, Depression, Gastroesophageal Reflux Disease(GERD) Denies:: Cancer, Diabetes Mellitus Type 1, Diabetes Mellitus Type 2, Hypertension, Internal Pacemaker, Lung Disease, MRSA, Seizures Laterality Cases: Bilateral: Arthroscopy Knee, Tonsillectomy Other Surgeries: Yes: Cholecystectomy, Colonoscopy, , Tubal Ligation, Other. No: Pacemaker Amputation: No Fractures: No - Social History Smoking Status: Former smoker Alcohol Intake: never Alcohol Intake Frequency:: holidays/special occasions only Substance Use Type: denies use Occupational Status: employed Housing: house Household Members: spouse - Psychiatric History Pschychiatric History:: Reports:: Anxiety, Depression Family Hx:: Hyperlipidemia, Hypertension Comment: ABLATION ROS Obtained: Yes Systems reviewed as appropriate & no additional complaints - Constitut
[2021-10-15 16:39] VITALS: BP 154/95; PULSE 78; RESP 19; TEMP 36.9
== END 2021-10-15 16:41 | disposition home or self-care (01) ==
PROVIDERS: Emergency Provider Nurse Practitioner Family; PCP Internal Medicine Adolescent Medicine
DX: J40 Bronchitis, not specified as acute or chronic (principal); K21.9 Gastro-esophageal reflux disease without esophagitis; F32.A Depression, unspecified; F41.9 Anxiety disorder, unspecified; Z79.1 Long term (current) use of non-steroidal anti-inflammatories (NSAID); Z79.51 Long term (current) use of inhaled steroids; Z79.82 Long term (current) use of aspirin; Z79.84 Long term (current) use of oral hypoglycemic drugs; Z79.899 Other long term (current) drug therapy; Z88.8 Allergy status to other drugs, medicaments and biological substances; Z87.891 Personal history of nicotine dependence; Z82.49 Family history of ischemic heart disease and other diseases of the circulatory system; Z83.438 Family history of other disorder of lipoprotein metabolism and other lipidemia
CPT/HCPCS: 96372; 99213; G0463

== ENCOUNTER 2021-10-17 17:14 | Emergency (ER) | payer OTHER, SELFPAY ==
[2021-10-17 17:20] VITALS: BP 153/74; PULSE 60; RESP 24; TEMP 36.9; O2SAT 93; BMI 49.6
[2021-10-17 17:44] LABS: UTC Influenza A Antigen Positive (Negative)
[2021-10-17 17:45] LABS: UTC Influenza B Antigen Negative (Negative)
[2021-10-17 17:46] LABS: Adenovirus,PCR Not Detected (NotDetected); Bordetella Pertussis Not Detected (NotDetected); Chlamydophila Pneumoniae, PCR Not Detected (NotDetected); Coronavirus 19, PCR Not Detected (NotDetected); Coronavirus 229E Not Detected (NotDetected); Coronavirus NL63 Not Detected (NotDetected); Coronavirus OC43 Not Detected (NotDetected); Coronovirus HKU1,PCR Not Detected (NotDetected); Human Metapneumovirus Not Detected (NotDetected); Influenza A, PCR Not Detected (NotDetected); Influenza AH1, 2009 Not Detected (NotDetected); Influenza AH1, PCR Not Detected (NotDetected); Influenza B, PCR Not Detected (NotDetected); Mycoplasma Pneumoniae, PCR Not Detected (NotDetected); Parainfluenza 1, PCR Not Detected (NotDetected); Parainfluenza 2, PCR Not Detected (NotDetected); Parainfluenza 3, PCR Not Detected (NotDetected); Parainfluenza 4, PCR Not Detected (NotDetected); Respiratory Syncytial Virus Not Detected (NotDetected); Rhinovirus/Enterovirus Not Detected (NotDetected)
--- NOTE | 2021-10-17 17:52 | XR_ITS ---
PROCEDURE INFORMATION: Exam: XR Chest Exam date and time: 10/17/2021 5:51 PM Age: 51 years old Clinical indication: Shortness of breath; Additional info: Cough, SOB, and refused to remove bra or nipple rings TECHNIQUE: Imaging protocol: XR of the chest. Views: 2 views. COMPARISON: CR CXR2V XR chest 2V 07/07/2018 12:17 PM FINDINGS: Lungs: Right lower lobe infiltrate. Resolved right upper lobe infiltrate. Pleural spaces: Unremarkable. No pleural effusion. No pneumothorax. Heart/Mediastinum: Unremarkable. No cardiomegaly. Bones/joints: Unremarkable. IMPRESSION: 1. Right lower lobe infiltrate. 2. Resolved right upper lobe infiltrate.
--- NOTE | 2021-10-17 18:10 | HMH.EDUTC ---
[facility] Disposition Clinical Impression: Influenza A, Shortness of breath Disposition: Home, Self-Care Condition on Discharge: Good Instructions: DI for H1N1 Influenza -- Adult Prescriptions: Albuterol Sulfate [Albuterol Sulfate Hfa] 2 puffs IH Q4HP PRN 30 Days #1 each PRN Reason: Wheezing [id number] Guaifenesin/Dextromethorphan [Mucinex Dm ER 1,200-60 mg Tab] 1 tab PO BID 10 Days #20 tab Transmission Status: [id number] Referrals: Rich Nolen MD [Primary Care Provider] - Medical Decision Making - Willi Inquiry Pt receiving controlled substance: No Vital Signs: 10/17/21 17:20 Temperature 98.4 F Temperature Source Oral Pulse Rate [Right Brachial] 60 Respiratory Rate 24 Blood Pressure [Right Arm] 153/74 H Blood Pressure Mean [Right Arm] 100 Blood Pressure Source [Right Arm] Automatic Cuff Blood Pressure Position [Right Arm] Sitting 02 Sat by Pulse Oximetry 93 L Oxygen Delivery Method Room Air - Lab Data Lab results reviewed: Yes: I reviewed the patient's lab results. Lab Results 10/17/21 17:32: Influenza Type A Ag Positive A, Influenza Type B Ag Negative Orders (Tests/Meds): ORDERS Category Date Time Status CXR 2 view (NOT portable) [XR chest 2V] Stat Exams 10/17/21 17:52 Taken Full Resp Panel w/COVID ([facility]) Routine Lab 10/17/21 17:36 Received - Radiology Data #1 Image(s): Chest [facility] HPI - General Stated complaint: cough,SOB Time Seen by Provider: 10/17/21 18:10 Mode of Arrival: Ambulatory Source of Information: Patient Limitations: No Limitations Description of Symptoms (Recalled from Triage Doc. by RN): PATIENT C/O COUGH, SOA AND WHEEZING. SHE STATES SHE WAS SEEN IN [facility] ON TUESDAY AND WAS GIVEN STERIODS AND ANTIBIOTICS BUT DOES NOT FEEL BETTER HEENT Symptoms (Recalled from RN notes): No Resp Symptoms (Recalled from RN notes): Yes Skin Symptoms (Recalled from RN notes): No MS Symptoms (Recalled from RN notes): No Functional Status (Recalled from RN notes): WNL - History of Present Illness Provider Complaint: Patient has had cough, congestion, wheezing, shortness of breath X 4 days. No fever. No vomiting or diarrhea. Seen in [facility] 2 days ago - given steroid injection, oral steroids. Not feeling much better. Onset (ago): day(s) (4) Location: chest Relieving factors: none Exacerbating factors: none Associated symptoms: shortness of breath Treatments prior to arrival: other (steroids) - Related Data Home Medications Medication Instructions Recorded Confirmed acetaminophen 500 mg capsule 1,000 mg PO Q4H PRN cap 03/28/19 08/31/21 ibuprofen 200 mg tablet 500 mg PO QID tab 03/28/19 02/20/21 omeprazole 20 mg capsule,delayed 20 mg PO DAILY #30 cap 03/28/19 02/20/21 release metformin 500 mg tablet 500 mg PO BID tab 02/20/21 02/20/21 Previous Rx's Medication Instructions Recorded Benzonatate [Benzonatate 100mg 100 mg PO Q8HP PRN #15 cap 08/31/21 cap] methylPREDNISolone [Medrol 4mg 4 mg PO DIRECTED #21 tab 08/31/21 tab] Azithromycin [Zithromax 250mg 250 mg PO DIRECTED #6 tab 10/15/21 tab] Benzonatate [Benzonatate 100mg 100 mg PO BID PRN 7 Days #14 cap 10/15/21 cap] predniSONE [Prednisone 20mg 20 mg PO BID #10 tab 10/15/21 Tab] Albuterol Sulfate [Albuterol 2 puffs IH Q4HP PRN 30 Days #1 each 10/17/21 Sulfate Hfa] Guaifenesin/Dextromethorphan 1 tab PO BID 10 Days #20 tab 10/17/21 [Mucinex Dm ER 1,200-60 mg Tab] Allergies Allergy/AdvReac Type Severity Reaction Status Date / Time diphenhydramine Allergy Intermediate CRAZY Verified 08/31/21 13:55 [DIPHENHYDRAMINE] promethazine [From PHENERGAN] Allergy Intermediate CRAZY Verified 08/31/21 13:55 temazepam [TEMAZEPAM] Allergy Intermediate CRAZY Verified 08/31/21 13:55 cefaclor [From Ceclor] Allergy Verified 02/20/21 16:29 - Worker's Comp Is this a Worker's Comp case?: No [facility] History
[2021-10-17 18:25] VITALS: BP 153/74; PULSE 60; RESP 24; TEMP 36.9; O2SAT 93
[2021-10-17 20:17] LABS: Influenza AH3,PCR Detected (NotDetected)
== END 2021-10-17 18:29 | disposition home or self-care (01) ==
PROVIDERS: Emergency Provider Physician Assistant; PCP Internal Medicine Adolescent Medicine
DX: J10.1 Influenza due to other identified influenza virus with other respiratory manifestations (principal); K21.9 Gastro-esophageal reflux disease without esophagitis; F41.8 Other specified anxiety disorders
CPT/HCPCS: 71046; 87581; 87632; 87798; 87804; 99213; C9803; G0463; U0003; U0005

== ENCOUNTER → 2021-11-09 16:53 | Outpatient (CLI) | payer OTHER, SELFPAY | PROVIDERS: PCP Orthopaedic Surgery; Visit Provider Internal Medicine | DX: M25.562 Pain in left knee (principal); M25.561 Pain in right knee ==

== ENCOUNTER → 2021-11-10 08:48 | Outpatient (CLI) | payer OTHER, SELFPAY ==
--- NOTE | 2021-11-10 08:51 | XR_ITS ---
FINAL REPORT CLINICAL HISTORY: knee pain COMPARISON: 10/17/2020 FINDINGS: RIGHT KNEE Four views were obtained. There is no acute fracture or dislocation. Moderate and severe degenerative changes are present. There is severe medial compartment narrowing which is stable. No soft tissue abnormality is identified. IMPRESSION: Degenerative changes as above. Reviewed, Interpreted and Dictated by Bruno Mariscal III, MD Transcribed by Marilee Jensen Authenticated by Bruno Mariscal III, MD on 11/10/2021 11:03:26 AM [facility]
--- NOTE | 2021-11-10 08:51 | XR_ITS ---
FINAL REPORT CLINICAL HISTORY: knee pain COMPARISON: 10/17/2020 FINDINGS: LEFT KNEE Four views were obtained. There is no acute fracture or dislocation. Moderate and severe degenerative changes are present. There is severe medial compartment narrowing which is stable. There is a 13 mm loose body in the intercondylar notch which is stable. IMPRESSION: Degenerative and chronic appearing findings as above. Reviewed, Interpreted and Dictated by Bruno Mariscal III, MD Transcribed by Marilee Jensen Authenticated by Bruno Mariscal III, MD on 11/10/2021 11:03:[address] [facility]
== END ==
PROVIDERS: PCP Internal Medicine Adolescent Medicine; Visit Provider Orthopaedic Surgery
DX: M25.561 Pain in right knee (principal); M25.562 Pain in left knee
CPT/HCPCS: 73564

== ENCOUNTER → 2021-12-04 12:34 | Outpatient (CLI) | payer OTHER, SELFPAY ==
[2021-12-04 13:02] LABS: Chloride 103 mmol/L (98-107); Potassium 4.7 mmoL/L (3.5-5.1); Sodium 138 mmol/L (136-145)
[2021-12-04 13:05] LABS: Blood Urea Nitrogen 21 mg/dl (7-17); Estimated Glomerular Filt Rate 58 ml/min (>60); GFR (African American) 70 ML/MIN (>60)
[2021-12-04 13:06] LABS: Glucose 96 mg/dl (74-100)
[2021-12-04 14:10] LABS: Anion Gap 9.7 mEq/L (5-15); Carbon Dioxide 30 mmol/L (22.0-30.0)
== END ==
PROVIDERS: PCP Internal Medicine Adolescent Medicine; Visit Provider Internal Medicine
DX: R79.89 Other specified abnormal findings of blood chemistry (principal)
CPT/HCPCS: 36415; 80048

== ENCOUNTER → 2022-06-09 08:40 | Outpatient (CLI) | payer OTHER, SELFPAY ==
--- NOTE | 2022-06-09 09:15 | XR_ITS ---
FINAL REPORT CLINICAL HISTORY: knee pain, no injury COMPARISON: 11/10/2021 FINDINGS: Left knee Three views were obtained. There is no acute fracture or dislocation. There are moderate to severe degenerative changes, stable. No soft tissue abnormality is identified. IMPRESSION: Degenerative changes as above. Reviewed, Interpreted and Dictated by Bruno Mariscal III, MD Transcribed by Marilee Jensen Authenticated and . [facility]
--- NOTE | 2022-06-09 09:15 | XR_ITS ---
FINAL REPORT CLINICAL HISTORY: knee pain, no injury COMPARISON: 11/10/2021 FINDINGS: Right knee Three views were obtained. There is no acute fracture or dislocation. There are moderate to severe degenerative changes. There is narrowing of the medial and patellofemoral compartment joint spaces, stable. No soft tissue abnormality is identified. IMPRESSION: Degenerative changes as above Reviewed, Interpreted and Dictated by Bruno Mariscal III, MD Transcribed by Marilee Jensen Authenticated and [facility]
== END ==
PROVIDERS: PCP Family Medicine; Visit Provider Orthopaedic Surgery
DX: M25.561 Pain in right knee (principal); M25.562 Pain in left knee
CPT/HCPCS: 73562

== ENCOUNTER → 2022-06-22 14:06 | Outpatient (CLI) | payer OTHER, SELFPAY ==
[2022-06-22 17:28] LABS: Influenza A, PCR Not Detected (NotDetected); Influenza B, PCR Not Detected (NotDetected)
[2022-06-22 21:54] LABS: Coronavirus 19, PCR Detected (NotDetected)
== END ==
LOC: LAB 14:07 → LAB.DROPOF 14:08
PROVIDERS: PCP Family Medicine; Visit Provider Internal Medicine
DX: U07.1 COVID-19 (principal)
CPT/HCPCS: C9803; U0003; U0005

== ENCOUNTER → 2022-09-14 16:27 | Outpatient (CLI) | payer OTHER, SELFPAY ==
[2022-09-14 16:29] LABS: Microscopic, Urine URINE MICROSCOPIC (MICROSCOPIC)
[2022-09-14 17:01] LABS: Appearance,Urine CLEAR (Clear); Bilirubin,Urine Negative (Negative); Blood, Urine Negative (Negative); Color,Urine YELLOW (Yellow); Glucose,Urine (UA) Negative (Negative); Ketones,Urine Negative (Negative); Leukocyte Esterase,Urine Negative (Negative); Nitrate,Urine Negative (Negative); Protein,Urine Negative (Negative); Urobilinogen,Urine 0.2 EU/dl (0.2)
[2022-09-14 17:03] LABS: Squamous Epithelial Cell,Urine Occasional #/hpf (0-5)
[2022-09-14 17:04] LABS: Urine Pregnancy, HCG Qual. Negative (Negative)
[2022-09-14 17:14] LABS: Albumin Level 4.4 g/dl (3.5-5.0); Albumin/Globulin Ratio 1.6 (1.1-1.8); Alkaline Phosphatase 75 U/L (38-126); Anion Gap 14.5 mEq/L (5-15); Bilirubin,Total 0.3 mg/dl (0.2-1.3); Blood Urea Nitrogen 22 mg/dl (7-17); Calcium 8.6 mg/dl (8.4-10.2); Carbon Dioxide 29 mmol/L (22.0-30.0); Chloride 96 mmol/L (98-107); Estimated Glomerular Filt Rate 75 ml/min (>60); GFR (African American) 91 ML/MIN (>60); Globulin 2.8 g/dL (1.3-3.2); Glucose 102 mg/dl (74-100); Potassium 3.5 mmoL/L (3.5-5.1); Sodium 136 mmol/L (136-145); Total Protein,Serum 7.2 g/dl (6.3-8.2)
[2022-09-14 17:15] LABS: Alanine Aminotransferase 22 U/L (12-78); Aspartate Amino Transferase 20 U/L (14-36); Basophils # 0.2 K/mm3 (0-0.2); Basophils % 1.3 % (0.1-2.0); Eosinophils # 0.3 K/mm3 (0.0-0.4); Eosinophils % 2.5 % (0.1-12.0); Hemoglobin 12.4 g/dL (12.2-16.2); Lymphocytes # 3.5 K/mm3 (0.7-4.5); Lymphocytes % 27.6 % (10-50); Mean Corpuscular Hemoglobin 25.7 pg (27.0-31.2); Mean Corpuscular Volume 82.9 fl (81-99); Mean Platelet Volume 7.4 fl (7.4-10.4); Monocytes # 0.5 K/mm3 (0.1-1.0); Monocytes % 3.9 % (1.7-9.3); Neutrophils # 8.1 K/mm3 (1.8-7.8); Neutrophils % 64.7 % (37.0-80.0); Platelet Count 387 K/mm3 (142-424); Red Blood Count 4.83 M/mm3 (4.20-5.40); Red Cell Distribution Width 14.9 % (11.5-17.5); White Blood Count 12.5 K/mm3 (4.8-10.8)
== END ==
PROVIDERS: PCP Family Medicine; Visit Provider Orthopaedic Surgery
DX: Z01.818 Encounter for other preprocedural examination (principal); M25.561 Pain in right knee
CPT/HCPCS: 36415; 80053; 81001; 81025; 85025

== ENCOUNTER 2022-09-21 10:01 | Observation (INO) | payer OTHER, SELFPAY ==
--- NOTE | 2022-09-15 15:27 | SW/DCPLANNER ---
I have attempted to contact this patient regarding discharge plans after knee surgery on 09/21/22: no answer at this time. I will continue to get in touch with this patient.
[2022-09-20 10:32] VITALS: BMI 51.5
[2022-09-21] VITALS (23 sets, daily range): BP systolic 103–173; BP diastolic 51–93; PULSE 61–89; RESP 12–20; TEMP 36.3–43; O2SAT 93–100
[2022-09-21 08:48] LABS: Urine Pregnancy, HCG Qual. Negative (Negative)
[2022-09-21 09:07] LABS: Coronavirus 19, PCR Not Detected (NotDetected); Influenza A, PCR Not Detected (NotDetected); Influenza B, PCR Not Detected (NotDetected)
--- NOTE | 2022-09-21 09:36 | EXP.ANES.CKL ---
[facility] Disclaimer: The information contained in this section may have been updated after the patient was seen, as this information can be updated by other users. Medical History Hypertension Surgical History H/O adenoidectomy H/O arthroscopic knee surgery H/O tubal ligation History of History of tonsillectomy Hx of cholecystectomy Family History Other Family history of hypertension No significant family history Social History Smoking Status: Former smoker alcohol intake: current substance use type: denies use current occupational status: employed Travel in the last 8 weeks: None household members: spouse housing: house current occupational exposures/hazards: No caffeine: Yes [facility] Anesthesia Checklist Patient Identification Patient Identification: Arm Band and Verbal (Name & ) Structural Data Admitted From: Home Planned Operative Procedure/s: TKA Consent for Planned Operative Procedure(s) Verified: Yes NPO Status Verified Time NPO: 00:00 Additional verifications Anesthesia Reactions: No Hx Blood Transfusions: No Blood Transfusion Reaction: No Airway Assessment C-Spine Mobility Assessed: Yes TMJ Mobility Assessed: Yes Dentition: Good Dentition Neurological Assessment Level of Consciousness: Awake Hx Seizures: No Numbness or tingling in extremities: No Anesthesia Plan Anesthesia Risk discussed: Yes Anesthesia Plan: Verified ASA Class: III Anesthesia Type: MAC w/Block (MAC, Spinal and Adductor canal block)
--- NOTE | 2022-09-21 10:55 | HMH.PHAINT1 ---
Pharmacy Intervention Comments: Medication history completed using fill history from pharmacy and provider notes
--- NOTE | 2022-09-21 12:57 | XR_ITS ---
FINAL REPORT CLINICAL HISTORY: tka COMPARISON: 06/09/2022 FINDINGS: Left knee Two views were obtained. There is no acute fracture or dislocation. There is been interval total knee prosthesis. Gas is seen in the soft tissues consistent with recent surgery. There is no immediate complication. IMPRESSION: Postsurgical change as above. Reviewed, Interpreted and Dictated by Jethro Queen MD Transcribed by Marilee Jensen Authenticated and [facility]
--- NOTE | 2022-09-21 12:58 | EXP.ANES.I ---
[facility] Anesthesia Record Part I Anesthesia Record I Intake, IV Amount: 600 Estimated blood loss (mL): 5 Urine output (mL): 0 Blood Pressure: 133/75 SaO2: 97 Pulse Rate: 61 Respiratory Rate: 15 Temperature: 97.7 F Patient is:: Drowsy Stable to PACU at:: 12:52
--- NOTE | 2022-09-21 13:01 | EXP.OP.NOTE ---
Date of procedure: 09/21/22 Pre-op Diagnosis:: Left knee osteoarthritis Post-op Diagnosis:: Left knee osteoarthritis Procedure performed:: Left total knee arthroplasty Surgeon:: Aric Blanchard MD Highway Safety Engineer(s):: EDWIN Valdez GEM EXPERT:: Fina Walters Anesthesia: regional, local and spinal Estimated blood loss (mL): 5 Clinical Note:: Melissa is a very pleasant 52-year-old female with activity limiting bilateral knee pain secondary to osteoarthritis. She takes Tylenol and ibuprofen for her knee pain. No relief with cortisone injections last year. She works here in the [employer] History of knee scopes in the past. X-rays revealed severe tricompartmental degenerative changes in both knees with complete loss of medial joint space and varus deformity. We discussed all the risks, benefits alternatives to total knee arthroplasty. Initially discussed proceeding with a right knee first but it was scheduled for a left knee replacement and she was amenable to proceeding with a left knee replacement today. Operative findings:: Left knee severe tricompartmental degenerative changes with complete loss of medial joint space and marginal osteophyte formation with varus deformity. Operative note:: The patient was seen in the preoperative holding area. The left knee was marked to confirm the correct operative site. Again we had discussed in the office proceeding with the right knee first but it was scheduled as a left knee replacement and she was amenable to proceeding with a left knee replacement today as both knees bother her about the same. She was seen by anesthesia. She received clindamycin 900 mg IV prophylactic antibiotics within 1 hour of incision time. Also received a dose of TXA just prior to the incision and as we are closing to help minimize bleeding. She was brought back to the OR. Spinal performed without difficulty. All of her bony prominences were well-padded and a bump was placed underneath the left hip. Nonsterile tourniquet applied to the left thigh. Left lower extremity prepped and draped in usual sterile fashion. Timeout performed to confirm left total knee arthroplasty for patient Pushpa Escamilla. Before we started the case anesthesia noted that she had gone into A-fib. We consulted supervisor coin machine Dr. Vasquez who came back to the OR and advised okay to proceed. She converted back into a sinus rhythm early on in the case and was stable throughout. The left lower extremity was exsanguinated and Esmarch. Tourniquet was inflated to 300 mmHg. A midline incision was made with a 10 blade scalpel. Full-thickness medial and lateral flaps were elevated. Medial parapatellar arthrotomy was made. Patella was everted. Patella fat pad and anterior femoral fat pads were excised. Marginal osteophytes were removed. Medial release was performed with the Bovie electrocautery. Z retractors placed medially and laterally. The distal femur was then drilled and intramedullary distal femoral cutting was pinned in place set at a 5 degree valgus cut for an 11 mm distal femoral cut. This cut was made with oscillating saw. The femur was then sized to a size 5 set at 3 degrees of external rotation. The 4-in-1 cutting guide was pinned in place. Anterior and posterior cuts were made as were the chamfer cuts. We then turned our attention to the tibia. The tibia was subluxed anteriorly and the PCL retractor was placed as were medial and lateral Hohmann retractors. We used the extra medullary tibial cutting guide set at a 3 degree posterior slope for the proximal tibial cut. 5 mm of bone was removed from the low medial side and a centimeter from the high lateral side. Medial and lateral menisci were excised as were the posterior osteophytes. Flexion and extension gaps were then checked and with a 9 mm block we achieved full extension and flexion with excellent alignment. The tibia was sized to a size 4 tibial tray centered off the medial third of the tibial tubercle.
--- NOTE | 2022-09-21 13:31 | EXP.HP ---
History of Present Illness *Admission Date: 09/21/22 *Reason for visit:: left TKA, Afib *History of present illness: 52-year-old male with history of primary osteoarthritis bilaterally in her knees. Brought in electively for left knee replacement today. During surgery, patient developed A-fib. Converted back to sinus rhythm with metoprolol. Admitted to medicine for observation after procedure. Patient's medical history includes morbid obesity, hypertension, diabetes. Patient had been having worsening pain, decision made with Ortho for elective knee replacement. After admission, she denies any shortness of breath, chest pain, nausea, vomiting. No further episodes of A-fib. Will monitor on telemetry. Stable on room air at time of admission. [facility] Disclaimer: The information contained in this section may have been updated after the patient was seen, as this information can be updated by other users. Medical History (Updated 09/21/22 @ 14:58 by Rich Nolen MD) Hypertension Surgical History (Updated 09/21/22 @ 14:57 by Rich Nolen MD) H/O adenoidectomy H/O arthroscopic knee surgery H/O tubal ligation History of History of tonsillectomy Hx of cholecystectomy Family History No significant family history Family history of hypertension Social History Smoking Status: Former smoker alcohol intake: current substance use type: denies use current occupational status: employed Travel in the last 8 weeks: None household members: spouse housing: house current occupational exposures/hazards: No caffeine: Yes Review of Systems Review of Systems Review of systems (narrative): 14 point review of systems performed, pertinent positives and negatives as per HPI Meds Home Medications and Allergies Home Medications Medication Instructions Recorded Confirmed Type ibuprofen 200 mg tablet 500 mg PO QID Pain 03/28/19 09/21/22 History metformin 500 mg tablet 1,000 mg PO BID polycystic ovarian 02/20/21 09/21/22 History disease aspirin 81 mg tablet,delayed 81 mg PO DAILY heart health 11/10/21 09/21/22 History release (Adult Aspirin Regimen) biotin 1 mg capsule 1 mg PO DAILY Supplement 04/19/22 09/21/22 History carvedilol 12.5 mg tablet 12.5 mg PO BID High blood pressure 09/20/22 09/21/22 History fluoxetine 20 mg capsule 20 mg PO DAILY Depression 09/20/22 09/21/22 History losartan 100 1 tab PO DAILY High blood pressure 09/20/22 09/21/22 History mg-hydrochlorothiazide 25 mg tablet omeprazole 20 mg capsule,delayed 20 mg PO DAILY Acid reflux 09/20/22 09/21/22 History release oxycodone 5 mg tablet 5 mg PO Q4H PRN pain #30 tabs 09/21/22 Rx New Prescriptions to Start Prescriptions: Allergies Allergy/AdvReac Type Severity Reaction Status Date / Time diphenhydramine Allergy Intermediate CRAZY Verified 09/20/22 10:28 [DIPHENHYDRAMINE] promethazine [From PHENERGAN] Allergy Intermediate CRAZY Verified 09/20/22 10:28 temazepam [TEMAZEPAM] Allergy Intermediate CRAZY Verified 09/20/22 10:28 cefaclor [From Ceclor] Allergy Verified 09/20/22 10:28 Exam Data for Last 24 hours Vital signs and Labs for Last 24 Hours: Temp Pulse Resp BP Pulse Ox 97.7 F 64 16 139/81 100 09/21/22 12:58 09/21/22 13:12 09/21/22 13:12 09/21/22 13:12 09/21/22 13:12 Laboratory Results - last 24 hr 09/21/22 08:40: Urine HCG, Qual Negative 09/21/22 09:00: SARS-CoV-2 (PCR) Not detected, Influenza A Untype (PCR) Not detected, Influenza Type B (PCR) Not detected I & O for Last 24 hours: Intake & Output 09/18/22 09/19/22 09/20/22 09/21/22 23:59 23:59 23:59 23:59 Intake Total 600 / 600 Balance 600 / 600 Weight 136.078 kg Constitutional Constitutional: no acute distress, morbidly obese and cooperative *Routine HEENT Exam Head: Present normocephalic Eye: Present EOM
--- NOTE | 2022-09-21 14:03 | P.PNANES_ITS ---
[facility] Anesthesia Record Part II Anesthesia Record Part II Discharge Time: 13:12 Destination: Medical Surgical Department PACU nurse assessment reviewed?: Yes Patient Condition:: Good Anesthesia Complications:: None Swallowing reflex intact?: Yes Cyanosis?: No Blood Pressure: 139/81 Pulse Rate: 64 Temperature: 97.5 F Mental Status: Alert & Oriented Pain level:: 0 Nausea and/or vomitting:: None Intake, IV Amount: 0
--- NOTE | 2022-09-21 15:21 | PC.NURSE ---
Pt post op L knee replacement. Alert and oriented. Lung sounds clear. Abdomen soft and non-tender with bowel sounds present. PT to consult. Family at bedside.
[2022-09-22] VITALS: BP 100/47; PULSE 70; PULSE 73; RESP 16; TEMP 36.7; O2SAT 97
[2022-09-22 04:00] VITALS: BP 102/59; PULSE 60; PULSE 69; RESP 17; TEMP 36.8; O2SAT 92; BMI 53.5
--- NOTE | 2022-09-22 05:30 | PC.NURSE ---
Pt. did well throughout the night. Has gotten several scheduled meds for pain plus one pain pill and 2 vials of dilaudid on my shift.
[2022-09-22 07:02] LABS: Basophils # 0.1 K/mm3 (0-0.2); Eosinophils # 0.3 K/mm3 (0.0-0.4); Eosinophils % 3.7 % (0.1-12.0); Hematocrit 32.7 % (37.0-47.0); Hemoglobin 10.7 g/dL (12.2-16.2); Lymphocytes # 1.8 K/mm3 (0.7-4.5); Mean Corpuscular HGB Conc 32.7 g/dL (31.8-35.4); Mean Corpuscular Hemoglobin 26.5 pg (27.0-31.2); Mean Corpuscular Volume 81.1 fl (81-99); Mean Platelet Volume 7.9 fl (7.4-10.4); Monocytes # 0.4 K/mm3 (0.1-1.0); Monocytes % 4.6 % (1.7-9.3); Neutrophils # 6.5 K/mm3 (1.8-7.8); Neutrophils % 70.8 % (37.0-80.0); Platelet Count 324 K/mm3 (142-424); Red Blood Count 4.04 M/mm3 (4.20-5.40); Red Cell Distribution Width 14.6 % (11.5-17.5); White Blood Count 9.2 K/mm3 (4.8-10.8)
[2022-09-22 07:08] LABS: Anion Gap 10.7 mEq/L (5-15); Blood Urea Nitrogen 21 mg/dl (7-17); Calcium 7.8 mg/dl (8.4-10.2); Carbon Dioxide 30 mmol/L (22.0-30.0); Chloride 97 mmol/L (98-107); Creatinine Clearance Estimated 51 mL/min (50-200); Estimated Glomerular Filt Rate 52 ml/min (>60); GFR (African American) 63 ML/MIN (>60); Glucose 114 mg/dl (74-100); Potassium 3.7 mmoL/L (3.5-5.1); Sodium 134 mmol/L (136-145)
[2022-09-22 08:00] VITALS: BP 116/34; PULSE 70; PULSE 80; RESP 19; TEMP 36.7; O2SAT 92
--- NOTE | 2022-09-22 08:36 | CA_ITS ---
APPROVED REPORT EXAM: Comprehensive 2D, Doppler, and color-flow Echocardiogram Gravity Prospecting Operator: Alla Pal RVT Ht: 5 ft 4 in Wt: 313lbs BSA: 2.37 BP: 116/34 mmHg Indications: WENT INTO A-FIB DURING KNEE SURGERY,DM,OBESITY,HTN,EX SMOKER TDS-PT BODY HABITUS AND SCANNED IN RECLINER 2D Dimensions LVOT 2.23 cm (M/F) 1.5-2.5 M-Mode Dimensions RVDd 3.57 cm (0.9-2.6) LA Diam 2.60 cm (1.9-4.0) LVDd 5.28 cm (3.5-5.7) Ao Diam 3.75 cm (2.0-3.7) LVDs 3.48 cm (3.5-5.7) IVSd 0.65 cm (0.6-1.1) PWd 0.56 cm (0.6-1.1) EF (Teich) 62.60% FS 34.10% EDV (Teich) 134.20 mL ESV (Teich) 50.20 mL LV Diastology E Decel Time 227.00 (160-240 msec) E/A Ratio 1.5 MED E' 8.20 (< 7 cm/sec) E'/MED E' Ratio 8.00 (>14) LAT E' 11.30 (<10 cm/sec) E/LAT E' Ratio 5.81 (>14) Aortic Valve AO Peak GR. 5.60 mmHg Mitral Valve MV E Max Fermin. 65.80 (40-130 cm/s) MV A Velocity 44.95 (40-130 cm/s) E/A Ratio 1.46 MV Decel. Time 227.00 (160-240 ms) MV PHT 66.00 ms Pulmonary Valve PV Peak Velocity 88.95 (50-150 cm/s) Left Ventricle Technically difficult study because of the patient factors and poor acoustic windows. Left atrium is normal size left ventricle is normal size, estimated ejection fraction 55% with no regional wall motion abnormality, there is mild qualitative concentric left ventricular hypertrophy, diastolic parameters are inconclusive. Right Ventricle Right atrium and right ventricle are qualitatively mildly enlarged with normal contractility. Aortic Valve Aortic valve is grossly normal there is no aortic stenosis or aortic insufficiency. Mitral Valve Mitral valve is grossly normal, there is trace mitral regurgitation. Tricuspid Valve Tricuspid valve grossly normal, there is no significant tricuspid regurgitation. Pulmonic Valve Pulmonic valve is poorly visualized. Great Vessels Aortic root is normal size. Inferior vena cava is poorly visualized. Pericardium No significant pericardial effusion noted. Conclusion 1. Normal left ventricular size preserved left ventricular systolic function, estimated ejection fraction 55% with no regional wall motion abnormality, diastolic parameters are inconclusive. 2. Mildly enlarged right ventricle with normal contractility. 3. Trace mitral regurgitation. 4. No significant pericardial effusion noted. 5. Inferior vena cava is poorly visualized. Electronically signed by : Oneil Currie MD 09/23/2022 05:33:42
--- NOTE | 2022-09-22 08:53 | EXP.CARD.CON ---
History of Present Illness History of Present Illness Consult date: 09/22/22 Requesting physician: Rich Nolen Consult reason: atrial fibrillation Chief complaint: afib History of present illness: This is a 52-year-old white female who presented to the hospital to undergo left total knee replacement yesterday. The patient did tolerate the procedure well, however, during surgery yesterday when she was having her spinal block induction she did go into atrial fibrillation with RVR. The patient was treated with an IV dose of metoprolol and converted back to sinus rhythm. She has remained in sinus rhythm since that time. She denies any chest pain or pressure. She denies any shortness of breath or edema. She denies any fever, chills, nausea, vomiting, diarrhea, PND or orthopnea. She remains in sinus rhythm this morning with no further episodes of atrial fibrillation. The patient does have known hypertension and morbid obesity. She denies having diabetes, she states that she is on metformin for polycystic ovarian disease. She has a [id number] of at least 2. [facility] Disclaimer: The information contained in this section may have been updated after the patient was seen, as this information can be updated by other users. Medical History (Updated 09/22/22 @ 08:57 by Varsha Champion APRN) Afib Bilateral knee pain Hypertension Morbid obesity with BMI of 50.0-59.9, adult Primary osteoarthritis of knees, bilateral Surgical History (Updated 09/22/22 @ 08:55 by Varsha Champion APRN) H/O adenoidectomy H/O arthroscopic knee surgery H/O tubal ligation History of History of tonsillectomy Hx of cholecystectomy Status post left knee replacement Family History No significant family history Family history of hypertension Social History Smoking Status: Former smoker alcohol intake: current substance use type: denies use current occupational status: employed Travel in the last 8 weeks: None household members: spouse housing: house current occupational exposures/hazards: No caffeine: Yes Review of Systems Review of Systems Review of systems:: pertinent systems reviewed and negative unless documented below Constitutional Constitutional: Reports system reviewed and no additional complaints, except as documented Eyes Eyes: Reports system reviewed and no additional complaints, except as documented ENT Ears, Nose, Mouth, and Throat: Reports system reviewed and no additional complaints, except as documented *Cardiovascular Cardiovascular: Reports system reviewed and no additional complaints, except as documented *Respiratory Respiratory: Reports system reviewed and no additional complaints, except as documented *Gastrointestinal Gastrointestinal: Reports system reviewed and no additional complaints, except as documented *Genitourinary Genitourinary: Reports system reviewed and no additional complaints, except as documented *Musculoskeletal Musculoskeletal: Reports system reviewed and no additional complaints, except as documented Integumentary/Breasts Skin/Breast: Reports system reviewed and no additional complaints, except as documented *Neurologic Neurologic: Reports system reviewed and no additional complaints, except as documented Psychiatric Psychiatric: Reports system reviewed and no additional complaints, except as documented Endocrine Endocrine: Reports system reviewed and no additional complaints, except as documented Hematologic/Lymphatic Hematologic/Lymphatic: Reports system reviewed and no additional complaints, except as documented Allergic/Immunologic Allergic/Immunologic: Reports system reviewed and no additional complaints, except as documented Exam Data for Last 24 hours Vital signs and Labs for Last 24 Hours: Temp Pulse Resp BP Pulse Ox 98.0 F 70 19 116/34 L 92 L 09/22/22 08:00 09/22/22
--- NOTE | 2022-09-22 09:11 | EXP.DC.SUM ---
General Admission date:: 09/21/22 Discharge date: 09/22/22 HPI HPI HPI: 52-year-old male with history of primary osteoarthritis bilaterally in her knees. Brought in electively for left knee replacement today. During surgery, patient developed A-fib. Converted back to sinus rhythm with metoprolol. Admitted to medicine for observation after procedure. Patient's medical history includes morbid obesity, hypertension, diabetes. Patient had been having worsening pain, decision made with Ortho for elective knee replacement. After admission, she denies any shortness of breath, chest pain, nausea, vomiting. No further episodes of A-fib. Will monitor on telemetry. Stable on room air at time of admission. Hospital Course Hospital Course Hospital Course: 52-year-old female status post left TKA, developed A-fib during surgery.? Cardiology consulted, appreciate their recommendations.? Orthopedics discussed case with medicine, decision made to admit for observation.? Problems addressed as follows: Atrial fibrillation Hypertension -New episode of A-fib prior to initiation of surgery, converted to sinus rhythm with metoprolol IV x1. Cardiology was consulted, appreciate their recommendations. Patient was monitored on telemetry with no further events. Carvedilol was increased to 25 mg twice daily. We will plan to resume home losartan/HCTZ after patient follows up with her PCP or cardiology as her blood pressure has been well controlled with this adjustment to her carvedilol regimen. Currently on Eliquis 2.5 mg twice daily for DVT prophylaxis, will hold on further anticoagulation pending results of event monitor placed before she discharged home. Plan for close follow-up with cardiology for further management and monitoring. Status post left TKA Primary osteoarthritis of bilateral knees -Orthopedics consulted, appreciate their recommendations.? Patient tolerated procedure well aside from the above event of A-fib. Stable to discharge home with plan for outpatient physical therapy. Initiated on Eliquis for post procedural DVT prophylaxis. -Oxycodone as needed pain Diabetes: Continue home metformin Depression: Continue Prozac for mood Stable for discharge home, follow-up with cardiology, orthopedics, PCP in the coming weeks. Exam Data for Last 24 hours Vital signs and Labs for Last 24 Hours: Temp Pulse Resp BP Pulse Ox 98.0 F 70 19 116/34 L 92 L 09/22/22 08:00 09/22/22 08:00 09/22/22 08:00 09/22/22 08:00 09/22/22 08:00 Laboratory Results - last 24 hr 09/21/22 09:00: SARS-CoV-2 (PCR) Not detected, Influenza A Untype (PCR) Not detected, Influenza Type B (PCR) Not detected 09/22/22 06:50: WBC 9.2, RBC 4.04 L, Hgb 10.7 L, Hct 32.7 L, MCV 81.1, MCH 26.5 L, MCHC 32.7, RDW 14.6, Plt Count 324, MPV 7.9, Neut % (Auto) 70.8, Lymph % (Auto) 20.0, Mobile % (Auto) 4.6, Eos % (Auto) 3.7, Baso % (Auto) 1.0, Neut # (Auto) 6.5, Lymph # (Auto) 1.8, Mobile # (Auto) 0.4, Eos # (Auto) 0.3, Baso # (Auto) 0.1 09/22/22 06:50: Sodium 134 L, Potassium 3.7, Chloride 97 L, Carbon Dioxide 30, Anion Gap 10.7, BUN 21 H, Creatinine 1.10 H, Estimated Creat Clear 51, Estimated GFR 52 L, Est GFR ( Amer) 63, Glucose 114 H, Calcium 7.8 L I & O for Last 24 hours: Intake & Output 09/19/22 09/20/22 09/21/22 09/22/22 23:59 23:59 23:59 23:59 Intake Total 1200 / 1200 50 / 50 Output Total 0 / 0 250 / 250 Balance 1200 / 1200 -200 / -200 Weight 136.078 kg 142.23 kg Constitutional Constitutional: no acute distress and morbidly obese *Routine HEENT Exam Head: Present normocephalic Eye: Present EOMI and PERRL ENT: Present mucous membranes moist *Routine Neck Exam Neck: Present supple; Absent lymphadenopathy *Routine Respiratory Exam Respiratory: Present CTA bilaterally; Absent accessory muscle use, rhonchi, wheezes or crackles *Routine Cardiovascular Exam Cardiovascular: Present RRR *Routine Abdominal Exam Abdominal: Present soft and normoactive bow
--- NOTE | 2022-09-22 09:53 | HMH.OTEV ---
OT Inpatient Evaluation Rehab OT IP Evaluation Start: 09/21/22 13:11 Freq: ONCE Status: Active Protocol: Document 09/22/22 09:45 [facility] (Rec: 09/22/22 09:53 [facility] [id number]) Rehab OT IP Assessment Subjective History Pt is oriented x 3 on arrival. Pt agreeable to engage in therapy evaluation. Pt was admitted following a Left knee total arthroplasty on 09/21/22 . Prior to being at the hospital pt was independent with all ADLs and IADLs. 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 She was also still driving. Patient's medical history includes morbid obesity, hypertension, diabetes Subjective I think I can get up and walk . Objective Patient Orientation Person,Place,Birthday Upper Extremity Gross ROM WFL Bed Mobility bed mobility-scooting,bed mobility - supine/sit,bed mobility - rolling Assist Level Supervision/Stand by Transfer Training Sit/Stand Transfer Assist Level Contact Guard/Hand Hold Chair Transfer Ability Contact Guard/Hand Hold Chair Transfer Technique Sit to/from Ambulatory Chair Transfer Assistive Devices Rolling Walker Rehab OT IP prob,goals,plan Problems Date of Evaluation: 09/22/22 OT IP Problems Bed Mobility,Transfers,Balance ,Self care,Safety Rehab Potential Rehab Potential Good Equipment Needs Assistive Devices Rolling / Wheeled Walker Plan OT intervention Plan Bed Mobility,Transfers,Balance ,Self care,Safety,Therapeutic Exercise OT Plan Frequency BID Duration LOS Discharge Goals Bed Mobility Ability Standby Assistance Sit to Stand Chair Transfer Ability Supervision/Stand by Chair Transfer Ability Supervision/Stand by Chair Transfer Technique Sit to/from Ambulatory Chair Transfer Assistive Devices Rolling Walker Lower Body Dressing Ability Assistance X1 Upper Body Dressing Ability Standby Assistance Bathing Ability Assistance x1 Performing Toilet Hygiene Ability Standby Assistance Overall Commode/Toilet Transfer Ability Standby Assistance Commode/Toilet Transfer Technique Sit to/from Ambulatory Discharge Plan OT Discharge Plan
--- NOTE | 2022-09-22 10:06 | EXP.ORTH.PN ---
Subjective *Date: 09/22/22 *Time: 09:30 Interval history: Pushpa is a 52-year-old female patient who underwent a primary left total knee arthroplasty performed by Dr. Blanchard yesterday 09/21/2022. Today the patient is postop day #1. This morning she is sitting up comfortably in a chair at the bedside and her mother is present. She reports some left knee pain as to be expected but states that it has been well controlled with as needed pain medication and rest. She reports that she has been ambulating weightbearing as tolerated with assistance and that this has been going well. No history of any nausea, vomiting, distal tingling/numbness, fevers, chills, or rigors. She denies any other symptoms or concerns at this time. Ortho Exam (Inpt) Vital signs and Labs for Last 24 Hours: Temp Pulse Resp BP Pulse Ox 98.0 F 70 19 116/34 L 92 L 09/22/22 08:00 09/22/22 08:00 09/22/22 08:00 09/22/22 08:00 09/22/22 08:00 Laboratory Results - last 24 hr 09/22/22 06:50: WBC 9.2, RBC 4.04 L, Hgb 10.7 L, Hct 32.7 L, MCV 81.1, MCH 26.5 L, MCHC 32.7, RDW 14.6, Plt Count 324, MPV 7.9, Neut % (Auto) 70.8, Lymph % (Auto) 20.0, Wilkinson % (Auto) 4.6, Eos % (Auto) 3.7, Baso % (Auto) 1.0, Neut # (Auto) 6.5, Lymph # (Auto) 1.8, Wilkinson # (Auto) 0.4, Eos # (Auto) 0.3, Baso # (Auto) 0.1 09/22/22 06:50: Sodium 134 L, Potassium 3.7, Chloride 97 L, Carbon Dioxide 30, Anion Gap 10.7, BUN 21 H, Creatinine 1.10 H, Estimated Creat Clear 51, Estimated GFR 52 L, Est GFR ( Amer) 63, Glucose 114 H, Calcium 7.8 L I & O for Labs for Last 24 Hours: Intake & Output 09/19/22 09/20/22 09/21/22 09/22/22 23:59 23:59 23:59 23:59 Intake Total 1200 / 1200 50 / 50 Output Total 0 / 0 250 / 250 Balance 1200 / 1200 -200 / -200 Weight 300 lb 313 lb 9 oz Head: Present normocephalic and atraumatic Eyes: Present as per HPI ENT: Present normal exam Neck: Present normal inspection, full ROM and trachea midline; Absent lymphadenopathy Respiratory: Present normal respiratory effort, able to speak in complete sentences and symmetric chest movement; Absent accessory muscle use Cardiac: Present Reg Rate and Rhythm GI: Present soft; Absent tenderness Comment:: Upon examination of the left knee: Dressings present are clean, dry, and intact. Out of the dressings, the surgical incision appears healthy. No induration, erythema, or drainage present. There is a Dermabond Prineo skin closure system in place. Thigh and calf are soft and nontender; Homans' sign is negative. No clinical evidence of DVT or compartment syndrome noted. Posterior tibial pulse 1+; capillary refill is brisk. Sensation to light touch gross intact throughout. Patient is actively mobilizing the foot, ankle, and toes. Diagnostic imaging: Postoperative x-ray performed at [facility] on 09/21/2022 reviewed along with radiologist report and compared to previous imaging. X-ray of the left knee demonstrates a total knee arthroplasty with orthopedic components in satisfactory alignment and fixation. No evidence of orthopedic complications noted. Radiologist report is as follows: FINDINGS: Left knee Two views were obtained. There is no acute fracture or dislocation. There is been interval total knee prosthesis. Gas is seen in the soft tissues consistent with recent surgery. There is no immediate complication. IMPRESSION: Postsurgical change as above. Reviewed, Interpreted and Dictated by Jethro Queen MD Transcribed by Marilee Jensen Authenticated and [facility] Skin: Present intact, warm and normal turgor; Absent cyanosis, erythema, lesions or jaundice Neuro: Present Cranial Nerve 2-12 Intact, Motor Function Intact, Sensory Function Intact, alert, awake, oriented x 3, tone normal and moves all extremities; Absent Numbness or Tingling Assessment and Plan *Assessment and plan (1) Primary osteoarthritis of knees, bilate
--- NOTE | 2022-09-22 10:17 | HMH.PTEV ---
Physical Therapy Evaluation Rehab PT IP Evaluation Start: 09/21/22 13:11 Freq: ONCE Status: Active Protocol: Document 09/22/22 09:00 PHORSUZAN (Rec: 09/22/22 10:17 PHORNE [id number]) Subjective/History History History 52 yowf adm to [facility] after L TKA due to severe OA. She reports she has 1 step to enter the home, and is generally independent with all mobility without AD. She has a RW at home for her use if needed and has assistance available. Subjective Subjective She reports expected post-op pain at this time and 1+ pitting edema noted to L lower leg, which is also expected. Rehab PT IP Eval Objective Appearance Patient Behavior Appropriate,Cooperative Patient Orientation Person,Place,Time Difficulty following instructions none Speech Pattern Clear Ambulation Patient Able to Ambulate Yes Ambulation Observation IP General Gait Pattern Observation Antalgic Gait Ambulation Distance (feet) 20 Ambulation Assistive Device Rolling Walker Ambulation Ability Contact Guard/Hand Hold Balance Ability to Arise Able, uses arms to help Sitting Balance Steady, safe Standing Balance Steady, wide stance Dynamic Sitting Balance Ability Good Dynamic Standing Balance Ability Good Transfers Bed Transfer Ability Contact Guard/Hand Hold Chair Transfer Ability Contact Guard/Hand Hold Sit to Stand Bed Transfer Ability Contact Guard/Hand Hold Sit to Stand Chair Transfer Ability Contact Guard/Hand Hold Rehab PT IP prob,goals,plan Problems Date of Evaluation: 09/22/22 PT IP Problems Bed Mobility,Transfers,Gait Rehab Potential Rehab Potential Good Plan PT Intervention Plan Bed Mobility,Transfers,Gait, Therapeutic Exercise PT Plan Frequency BID Duration LOS Discharge Goals Bed Transfer Ability Supervision/Stand by Sit to Stand Chair Transfer Ability Supervision/Stand by Ambulation Assistive Device Rolling Walker Ambulation Distance (feet) 25 Discharge Plan PT Discharge Plan Pt is currently appropriate to return home once medically stable for d/c. Recommend outpatient physical therapy. G -code Required No Eval Complexity Eval Charge Codes 70867 - Moderate Complexity
[2022-09-22 12:00] VITALS: PULSE 80
--- NOTE | 2022-09-22 12:38 | PC.NURSE ---
pt wants to wait to dc around 1400 she states she has to pick remover son from school and would like to only make one trip to town.
--- NOTE | 2022-09-22 12:53 | CARE MANAGER ---
Patient will discharge home today with outpatient PT. First appointment is scheduled for tomorrow, 09/23 @ 1000.
--- NOTE | 2022-09-23 13:46 | CARE MANAGER ---
Spoke with Pushpa this morning. She called to ask about getting rolling walker, order/clinical faxed to [facility]. Plan is for delivery to Pushpa's moms house today.
== END 2022-09-22 14:22 | disposition home or self-care (01) ==
LOC: 2ND 11:49
PROVIDERS: Orthopaedic Surgery; Admitting Provider Family Medicine; PCP Family Medicine; Visit Provider Internal Medicine Adolescent Medicine
PROC: (CPT 27447; principal; 2022-09-21 10:00)
DX: M17.12 Unilateral primary osteoarthritis, left knee (principal); Z87.891 Personal history of nicotine dependence; I10 Essential (primary) hypertension; E66.01 Morbid (severe) obesity due to excess calories; Z68.43 Body mass index [BMI] 50.0-59.9, adult
CPT/HCPCS: 27447; 36415; 73560; 80048; 81025; 85025; 93270; 93306; 96374; 97162; 97166; C1776; C9803; G0378; J2405; J2704; U0003; U0005

== ENCOUNTER → 2022-10-06 14:25 | Outpatient (CLI) | payer OTHER, SELFPAY ==
--- NOTE | 2022-10-06 14:29 | XR_ITS ---
FINAL REPORT CLINICAL HISTORY: s/p lt knee replacement COMPARISON: None FINDINGS: LEFT KNEE A two view exam demonstrates surgical changes of total left knee arthroplasty. The hardware has a normal appearance with anatomic alignment. No fracture is identified. IMPRESSION: Surgical changes of total left knee arthroplasty without hardware complication. Reviewed, Interpreted and Dictated by Jethro Queen MD Transcribed by Luh Dodge Authenticated and [facility]
== END ==
PROVIDERS: PCP Family Medicine; Visit Provider Orthopaedic Surgery
DX: M25.562 Pain in left knee (principal); M17.0 Bilateral primary osteoarthritis of knee
CPT/HCPCS: 73560

== ENCOUNTER → 2022-11-03 13:24 | Outpatient (CLI) | payer OTHER, SELFPAY ==
--- NOTE | 2022-11-03 13:35 | XR_ITS ---
FINAL REPORT CLINICAL HISTORY: left knee pain..f/u surgery COMPARISON: 10/06/2022 FINDINGS: Left knee Two views were obtained. There is no acute fracture or dislocation. Patient is status post total knee prosthesis. No soft tissue abnormality is identified. IMPRESSION: Postsurgical change. Reviewed, Interpreted and Dictated by Jethro Queen MD Transcribed by Marilee Jensen Authenticated and . [facility]
== END ==
PROVIDERS: PCP Family Medicine; Visit Provider Orthopaedic Surgery
DX: M25.562 Pain in left knee (principal); Z96.652 Presence of left artificial knee joint
CPT/HCPCS: 73560

== ENCOUNTER 2022-11-18 15:30 | Outpatient (RCR) | payer OTHER, SELFPAY ==
--- NOTE | 2022-09-23 16:00 | HMH.PTOPEV ---
PT Outpatient Evaluation Rehab PT Outpatient Evaluation Start: 09/23/22 15:42 Freq: Status: Active Protocol: Document 09/23/22 15:43 ELI (Rec: 09/23/22 16:00 ELI [id number]) E-signed By Sunil Menjivar, PT Outpatient Therapy Subjective History Subjective History This is the initial PT eval for Pushpa Escamilla 62 yowf who presents ~ 2 days S/P L TKA due to severe OA. She reports pain, stiffness, and swelling throughout the L LE, but states I thought it would actually be worse. She presents with RW for gait and continued antalgic gait pattern. 2+ pitting edema noted to the L knee and lower leg. Incision is CDI except for a small area of sanguineous drainage noted at the distal end, which has dried. Chief Complaint Pain,Stiff,Swelling Symptom Type Ache,Sharp Symptoms Relieved By Rest/Positioning,Ice Symptoms Aggravated By Standing,Physical Activity, Walking Prior Functional Limitations None Current Functional Limitations Housework,Driving,Sleeping, Standing,Recreation Activity, Walking,Stairs Symptom Description Constant but Variable Level of pain today (0-10) 7 Pain scale - at its worst (0-10) 10 Hip/Knee Eval Gait Observation General Gait Pattern Observation Antalgic Gait Assistive Device Assistive Devices Rolling / Wheeled Walker Palpation Tenderness left Knee Palpation Finding Tenderness Knee Palpation Overall Comment knee jt line med/lat 2/4. MMT Hip Flexion Strength Grade 2+ Poor+ Hip Abduction Strength Grade 2+ Poor+ Hip Adduction Strength Grade 3+ Fair+ Hip Extension Strength Grade 3+ Fair+ Knee Extension Strength Grade 3+ Fair+ Knee Flexion Strength Grade 3+ Fair+ ROM Knee Extension Active Range of Motion ( -2 degrees) Knee Flexion Active Range of Motion ( 2-77 degrees) Outpatient Therapy Assessment Impairments Problems/Impairmments Palpation Tenderness,Impaired Range of Motion,Impaired Strength,Impaired Endurance, Impaired Transfers,Impaired Gait Pattern,Impaired Walking, I
--- NOTE | 2022-10-21 16:31 | HMH.RHREAS ---
Rehab Reassessment Rehab OP Re-assessment Start: 10/21/22 16:23 Freq: Status: Active Protocol: Document 10/21/22 16:24 [facility] (Rec: 10/21/22 16:29 PHORNE [id number]) E-signed By Sunil Menjivar, PT Rehab Re-assessment Subjective Subjective Pt reports, I don't really notice it anymore, I just kind of get up and go. Pain this date 10/11. Objective Objective Notes L knee AROM: 2-110 deg. L LE MMT: Grossly 4+/5 throughout. TTP: 07/07 lateral L knee jt line. Gait: Minimal antalgic gait on L LE without AD remains. No antalgic gait with straight cane. Assessment Progress Assessment Progressing as Expected Assessment Notes Pt has shown significant improvements in overall mobility, L knee pain, ROM, and strength. She continues to need further skilled intervention to reach full expected AROM of the L knee and return to baseline ability for ADL. Patient goals met ST,2,3,4,5,6,7 Goals Not Met LT,2,3,4,5,6,7 Revised Goals none Plan Plan Continue per initial POC. Frequency of Therapy 2-3 x/wk Duration of therapy 4 wks Time and Billing Re-Eval Time 14 Re-Eval Billing Units 1 PHYSICIAN CERTIFICATION: I certify the specified therapy services for Pushpa Escamilla are required, authorized, and reviewed every 30 days.
== END 2022-11-18 15:35 | disposition home or self-care (01) ==
LOC: PT 15:30
PROVIDERS: PCP Family Medicine; Visit Provider Internal Medicine Adolescent Medicine
DX: M25.562 Pain in left knee (principal); Z96.652 Presence of left artificial knee joint
CPT/HCPCS: 97010; 97014; 97016; 97110; 97112; 97140; 97163; 97164; 97530; 97760; G0283

== ENCOUNTER → 2022-11-22 13:56 | Outpatient (CLI) | payer OTHER, SELFPAY ==
[2022-11-22 15:30] LABS: Basophils # 0.1 K/mm3 (0-0.2); Basophils % 0.6 % (0.1-2.0); Eosinophils # 0.2 K/mm3 (0.0-0.4); Eosinophils % 1.8 % (0.1-12.0); Hematocrit 35.8 % (37.0-47.0); Hemoglobin 11.5 g/dL (12.2-16.2); Lymphocytes # 2.6 K/mm3 (0.7-4.5); Mean Corpuscular Volume 81.1 fl (81-99); Mean Platelet Volume 7.7 fl (7.4-10.4); Monocytes # 0.3 K/mm3 (0.1-1.0); Monocytes % 3.6 % (1.7-9.3); Neutrophils # 5.6 K/mm3 (1.8-7.8); Platelet Count 369 K/mm3 (142-424); Red Blood Count 4.42 M/mm3 (4.20-5.40); Red Cell Distribution Width 15.8 % (11.5-17.5); White Blood Count 8.7 K/mm3 (4.8-10.8)
[2022-11-22 15:45] LABS: Anion Gap 18.2 mEq/L (5-15); Blood Urea Nitrogen 15 mg/dl (7-17); Calcium 8.9 mg/dl (8.4-10.2); Carbon Dioxide 29 mmol/L (22.0-30.0); Chloride 97 mmol/L (98-107); Estimated Glomerular Filt Rate 88 ml/min (>60); GFR (African American) 106 ML/MIN (>60); Glucose 119 mg/dl (74-100); Potassium 4.2 mmoL/L (3.5-5.1); Sodium 140 mmol/L (136-145)
== END ==
PROVIDERS: PCP Family Medicine; Visit Provider Physician Assistant
DX: D64.9 Anemia, unspecified (principal); I10 Essential (primary) hypertension; N18.2 Chronic kidney disease, stage 2 (mild)
CPT/HCPCS: 36415; 80048; 85025

== ENCOUNTER → 2022-12-08 11:55 | Outpatient (CLI) | payer OTHER, SELFPAY ==
--- NOTE | 2022-12-08 12:03 | XR_ITS ---
FINAL REPORT CLINICAL HISTORY: PAIN COMPARISON: None FINDINGS: LEFT KNEE 3 views of the left knee were obtained. The patient is post arthroplasty. There is no acute fracture or dislocation. Visualized joint spaces are normally aligned. Soft tissues are unremarkable. IMPRESSION: Changes of a knee arthroplasty No acute bony abnormality identified. Reviewed, Interpreted and Dictated by Mervat Guillen MD Transcribed by Huma Hamilton Authenticated and [facility]
== END ==
PROVIDERS: PCP Family Medicine; Visit Provider Orthopaedic Surgery
DX: M25.562 Pain in left knee (principal)
CPT/HCPCS: 73562

== ENCOUNTER → 2023-03-09 12:40 | Outpatient (CLI) | payer OTHER, SELFPAY ==
--- NOTE | 2023-03-09 12:43 | XR_ITS ---
FINAL REPORT CLINICAL HISTORY: right knee pain COMPARISON: 06/09/2022 FINDINGS: Right knee Three views were obtained. There is no acute fracture or dislocation. There are moderate and severe degenerative changes. There is severe medial compartment narrowing. No joint effusion is identified. No soft tissue abnormality is identified. IMPRESSION: Degenerative changes without acute bony abnormality. Reviewed, Interpreted and Dictated by Bruno Mariscal III, MD Transcribed by Marilee Jensen Authenticated and [facility]
--- NOTE | 2023-03-09 12:43 | XR_ITS ---
FINAL REPORT CLINICAL HISTORY: Left TKA COMPARISON: 11/03/2022 FINDINGS: Left knee Three views were obtained. There is no acute fracture or dislocation. There are postoperative changes from knee arthroplasty. No soft tissue abnormality is identified. IMPRESSION: Status post knee arthroplasty. Reviewed, Interpreted and Dictated by Bruno Mariscal III, MD Transcribed by Marilee Jensen Authenticated and [facility]
== END ==
PROVIDERS: PCP Family Medicine; Visit Provider Orthopaedic Surgery
DX: M25.562 Pain in left knee (principal); T84.033A Mechanical loosening of internal left knee prosthetic joint, initial encounter; M25.561 Pain in right knee
CPT/HCPCS: 73562

== ENCOUNTER 2023-04-07 11:58 | Outpatient (CLI) | payer OTHER, SELFPAY ==
--- NOTE | 2023-04-07 11:59 | CT_ITS ---
APPROVED REPORT Damage Assessor: CLINICAL INDICATION Chest Pain TECHNIQUE Image Acquisition: A 128 slice MDCT scanner (Surikatea View) was used for data acquisition. A noncontrast coronary calcium scan was performed. Bolus tracking in the ascending aorta with a threshold of 180 HU was performed. Immediately afterwards, ECG synchronized cardiac CT was then performed from the cardiac base to apex using retrospective gating with ECG tube current modulation. A total of 85 mL of Isovue 370 mg/mL contrast medium was administered at 5 mL/sec followed by a saline flush using a biphasic injection protocol. A tube voltage of 120 KVp was used. The patient received the following medications prior to the cardiac CT. 0.8 mg of sublingual nitroglycerin. The average heart rate at the time of acquisition was 50 bpm and regular. Image Reconstruction Transaxial images were reconstructed at 0.67 mm slide thickness. Data was reviewed interactively on an advanced workstation capable of 2 and 3-dimensional displays in all conventional reconstruction formats, including multiplanar reformations, maximum intensity projections, curved multiplanar reformations, and volume rendered reconstructions. When applicable, selected routine images describing the relevant coronary anatomy and pathology were saved and sent to PACS. Complications None Technical Quality Overall image quality was good. Coronary artery opacification was adequate. Total DLP (Dose-Length Product) is 1783.6 mGy-cm. The reported value represents the total of one or more individual components during the CT acquisition of this date and at this time, and as such, the same value may appear in more than one CT report depending on the interpreting/reporting physicians. COMPARISON None FINDINGS CT Coronary Calcium Scoring LMA (Left Main Artery) = 0 LAD (Left Anterior Descending) = 4 LCX (Left Coronary Circumflex) = 0 RCA (Right Coronary Artery) = 0 Total Calcium Score = 4 using the AJ-130 method. The observed calcium score of 4 is at 80 percentile for subjects of the same age, sex, and race/ethnicity. The interpretation of the calcium heart score is based on the following continuum*: 0 = no calcified plaque detected (risk of coronary artery disease is very low ??? less than 5%) 1-10 = calcium detected in extremely minimal levels (risk of coronary diseases is still low ??? less than 10%) 11-100 = mild levels of plaque detected with certainty (mild or minimal narrowing of heart arteries is likely) 101-400 = definite,at least moderate levels of plaque detected (relatively high risk of a heart attack within 3-5 years) >401-999 = extensive levels of plaque detected (high risk of heart attack, high levels of vascular disease are present, high likelihood of at least one significant coronary narrowing) *The calcium heart score quantifies the burden of coronary calcification/plaque in the coronary arteries. The calcium heart score is not able to evaluate the presence or burden of non-calcified (i.e. soft) plaque. There is minimal calcification in the descending aorta, but no identifiable calcification in the aortic valve, mitral annulus or mitral valve, pericardium, or myocardium. Coronary CT Angiography Coronaries have normal origin and proximal course. The coronary arterial system is left dominant. Note: Stenosis is reported as maximum percentage diameter stenosis. Stenosis grading is reported using the following scheme: Quantitative Stenosis Grading: Left Main (LM): The left main originates normally from the left sinus of Valsalva. The LM bifurcates into the left anterior descending artery and left circumflex artery. The LM is patent with no evidence of atherosclerosis. Left Ant
[2023-04-07 12:42] VITALS: BMI 56.8
[2023-04-07 13:09] LABS: Chloride 102 mmol/L (98-107)
[2023-04-07 13:10] LABS: Potassium 3.8 mmoL/L (3.5-5.1); Sodium 136 mmol/L (136-145)
[2023-04-07 13:12] LABS: Blood Urea Nitrogen 16 mg/dl (7-17); Creatinine Clearance Estimated 69 mL/min (50-200); Estimated Glomerular Filt Rate 75 ml/min (>60); GFR (African American) 90 ML/MIN (>60)
[2023-04-07 13:13] LABS: Anion Gap 8.8 mEq/L (5-15); Calcium 8.4 mg/dl (8.4-10.2); Carbon Dioxide 29 mmol/L (22.0-30.0); Glucose 85 mg/dl (74-100)
[2023-04-07 14:04] VITALS: BP 132/52; PULSE 70; RESP 18; O2SAT 95
--- NOTE | 2023-04-07 14:04 | PC.NURSE ---
To CT room, pt to table. 132/52, pulse 70 Nitro 0.8mg SL given per standing CTA orders.
[2023-04-07 14:07] VITALS: BP 112/57; PULSE 60
--- NOTE | 2023-04-07 14:07 | PC.NURSE ---
post Nitro BP stable
[2023-04-07 14:15] VITALS: BP 127/62; PULSE 60
--- NOTE | 2023-04-07 14:15 | PC.NURSE ---
test complete, vss. Pt without C/O.
[2023-04-07 14:21] VITALS: BP 128/66; PULSE 56
--- NOTE | 2023-04-07 14:21 | PC.NURSE ---
Pt to post-op for recovery. VSS. without complaints
[2023-04-07 14:35] VITALS: BP 128/66; PULSE 56; O2SAT 95
[2023-04-07 14:48] VITALS: BP 121/73; PULSE 52; O2SAT 96
--- NOTE | 2023-04-07 14:49 | PC.NURSE ---
Pt without C/O. VSS. IV D/C'd R A/C.
== END 2023-04-07 14:51 | disposition home or self-care (01) ==
LOC: RAD 11:58
PROVIDERS: PCP Family Medicine; Visit Provider Physician Assistant
DX: R06.00 Dyspnea, unspecified (principal); I48.91 Unspecified atrial fibrillation; I10 Essential (primary) hypertension; R60.9 Edema, unspecified
CPT/HCPCS: 75574; 80048; Q9967

== ENCOUNTER 2023-04-08 10:06 | Day surgery (SDC) | payer OTHER, SELFPAY ==
--- OUTSIDE RECORDS SUMMARY | 2023-04-08 10:08 | XMS_ITS | Patient Health Record ---
Author Name Unknown Organization [place] [facility] Address [address] [place] [address] Care Team Providers Care Environmental Services Technician Name Role Phone Darwin [place] Primary Care Provider Rich Bhardwaj [phone] ALLERGIES Allergen (clinical drug ingredient) Drug/Non Drug Allergy documented on EMR Reaction Allergy Type Onset Date Status Lyubovlor sanaz Drug Allergy Active MEDICATIONS Medication SIG (Take, Route, Frequency, Duration) Notes Start Date End Date Status Aspir 81 81 mg 1 tab(s) orally once a day for 30 day(s) Active ibuprofen 200 mg 1 tab(s) orally ever y 6 hours prn Active biotin 5000 mcg 1 tab(s) orally once a day Active PROzac 20MG 1 cap(s) orally once a day for 30 days Active phentermine hydrochloride 37.5 mg 1 tab(s) orally once a day for 30 day(s) 07/24/2021 Active Diflucan 150 mg 1 tab(s) orally once today, repeat in 3 days prn for 3 days 08/08/2021 Active fluconazole 150 mg 1 tab(s) orally once for 1 day 08/03/2021 Active metFORMIN 500 mg 1
[2023-04-08 10:14] VITALS: BMI 56.2
[2023-04-08 10:28] VITALS: BP 156/78; PULSE 61; RESP 98; TEMP 37; O2SAT 97
[2023-04-08 10:33] VITALS: PULSE 65
[2023-04-08 11:05] VITALS: BP 153/79; PULSE 51; PULSE 58; RESP 98; O2SAT 100
--- NOTE | 2023-04-12 13:34 | P.PCN_ITS ---
[facility] Loop Recorder Date: 04/08/23 Time: 10:50 Procedure Performed:: Implantation of loop recorder Indication:: Paroxysmal atrial fibrillation Technique:: Patient was brought to the cardiac Airplane Woodworker. After informed consent obtained, 1% lidocaine with epinephrine was used to anesthetize the site along the left anterior aspect of the chest near the sternal border. Using the preformed scalpel, an incision was made and using the supplied preloaded apparatus, the loop recorder was placed subcutaneously without difficulty. Following the deployment of the loop recorder interrogation of the device was performed to ensure appropriate voltage was being detected. Once this was verified, Steri- Strips were placed over the incision and the patient was prepped to discharge home. Patient tolerated the procedure well with minimal discomfort. Impression:: Successful implantation of loop recorder Serial Number:: [employer] ORDONEZ model number [id number] Serial #[id number] Plan:: Routine postop care
== END 2023-04-08 11:17 | disposition home or self-care (01) ==
PROVIDERS: PCP Family Medicine; Visit Provider Internal Medicine
DX: I48.0 Paroxysmal atrial fibrillation (principal)
CPT/HCPCS: 33285; C1764

== ENCOUNTER 2023-05-17 10:59 | Observation (INO) | payer OTHER, SELFPAY ==
--- NOTE | 2023-05-04 14:45 | SW/DCPLANNER ---
Addendum entered by Marimar Posadas 05/18/23 09:56: The plan for this patient is to discharge home today and follow up w/ outpatient PT tomorrow 05/19/23. Original Note: I called and spoke w/ this patient regarding plans after TKA on 05/17/23. Patient stated that she resides at home w/ her family and plans to return home w/ family and follow up w/ outpatient PT at [facility]. Patient is scheduled for outpatient PT at [facility] on 05/19/23. I will follow up w/ this patient after procedure. Patient has no further questions/needs at this time.
[2023-05-13 12:17] VITALS: BMI 54.1
[2023-05-17] VITALS (23 sets, daily range): BP systolic 123–197; BP diastolic 57–119; PULSE 55–87; RESP 15–18; TEMP 36.1–36.8; O2SAT 91–100; BMI 56.0
--- NOTE | 2023-05-17 08:42 | XR_ITS ---
FINAL REPORT CLINICAL HISTORY: preop testing COMPARISON: 10/17/2021 FINDINGS: Mild cardiomegaly is present. There is a loop recorder overlying the cardiac silhouette. The mediastinum is normal. There is no focal infiltrate or edema. There are no pleural effusions. There is no pneumothorax. There is no osseous abnormality. IMPRESSION: No acute cardiopulmonary process Reviewed, Interpreted and Dictated by Jethro Queen MD Transcribed by Huma Hamilton Authenticated and [facility]
--- NOTE | 2023-05-17 08:48 | ECG_ITS ---
APPROVED REPORT Exam: Resting ECG HR:55 bpm ECG Measurements Heart Rate 55 AXES MN 206 P 40 QRSd 80 QRS 5 QT 416 T 55 QTc 405 Conclusion SINUS BRADYCARDIA NONSPECIFIC T-WAVE ABNORMALITY BORDERLINE ECG UNCONFIRMED REPORT Electronically signed by : Darwin Montana MD 05/17/2023 20:08:40
[2023-05-17 09:56] LABS: Basophils % 0.2 % (0.1-2.0); Eosinophils # 0.2 K/mm3 (0.0-0.4); Eosinophils % 2.8 % (0.1-12.0); Hematocrit 37.1 % (37.0-47.0); Hemoglobin 12.1 g/dL (12.2-16.2); Lymphocytes % 25.1 % (10-50); Mean Corpuscular HGB Conc 32.6 g/dL (31.8-35.4); Mean Corpuscular Hemoglobin 26.7 pg (27.0-31.2); Mean Corpuscular Volume 81.7 fl (81-99); Mean Platelet Volume 7.5 fl (7.4-10.4); Monocytes # 0.4 K/mm3 (0.1-1.0); Monocytes % 4.4 % (1.7-9.3); Neutrophils # 5.3 K/mm3 (1.8-7.8); Neutrophils % 67.6 % (37.0-80.0); Platelet Count 288 K/mm3 (142-424); Red Blood Count 4.54 M/mm3 (4.20-5.40); Red Cell Distribution Width 15.1 % (11.5-17.5); White Blood Count 7.9 K/mm3 (4.8-10.8)
[2023-05-17 09:57] LABS: Chloride 103 mmol/L (98-107); Sodium 138 mmol/L (136-145)
[2023-05-17 09:58] LABS: Potassium 5.4 mmoL/L (3.5-5.1)
[2023-05-17 10:00] LABS: Alanine Aminotransferase 22 U/L (12-78); Albumin Level 4.2 g/dl (3.5-5.0); Albumin/Globulin Ratio 1.2 (1.1-1.8); Alkaline Phosphatase 56 U/L (38-126); Anion Gap 11.4 mEq/L (5-15); Aspartate Amino Transferase 38 U/L (14-36); Bilirubin,Total 0.7 mg/dl (0.2-1.3); Blood Urea Nitrogen 16 mg/dl (7-17); Carbon Dioxide 29 mmol/L (22.0-30.0); Creatinine Clearance Estimated 79 mL/min (50-200); Estimated Glomerular Filt Rate 87 ml/min (>60); GFR (African American) 106 ML/MIN (>60); Globulin 3.4 g/dL (1.3-3.2); Total Protein,Serum 7.6 g/dl (6.3-8.2)
[2023-05-17 10:01] LABS: Calcium 8.5 mg/dl (8.4-10.2); Glucose 122 mg/dl (74-100)
[2023-05-17 10:21] LABS: Hemoglobin A1C 5.6 % (4.0-6.0)
--- NOTE | 2023-05-17 12:07 | HMH.PHAINT1 ---
Pharmacy Intervention Comments: MEDICATION RECONCILIATION COMPLETED ON PATIENT USING EXTERNAL FILL HISTORY FROM PHARMACY AND LIST FROM CARDIOLOGY OFFICE. -GAIL HYATT, RUSSELLD
--- NOTE | 2023-05-17 13:08 | EXP.OP.NOTE ---
Date of procedure: 05/17/23 Pre-op Diagnosis:: Right knee osteoarthritis Post-op Diagnosis:: Right knee osteoarthritis Procedure performed:: Right total knee replacement Surgeon:: Aric Blanchard MD DELPHI DEVELOPER:: Other Anesthesia: regional, local and spinal Estimated blood loss (mL): 5 Clinical Note:: Pushpa is a pleasant 53-year-old female with activity limiting right knee pain secondary to osteoarthritis that is affecting her quality of life. She works in the [employer] here at [employer]. Left knee doing well status post knee replacement in September. She had A-fib after her left knee replacement and has seen Dr. Vasquez. Now rate controlled off Eliquis. Right knee x-rays in March revealed severe tricompartmental degenerative changes with complete loss of medial joint space and marginal osteophyte formation with varus deformity. No relief with cortisone and viscosupplementation injections. She takes Tylenol 3 and ibuprofen 800 mg for her knee pain. History of right knee arthroscopy about 5 years ago. We discussed all the risks, benefits and alternatives to right total knee replacement and she agreed to proceed. Surgical consent form was signed. Operative findings:: Right knee severe tricompartmental degenerative changes with varus deformity and marginal osteophyte formation. Please note a 22 modifier should be added to this case due to added complexity and time to complete the knee replacement due to the patient's morbid obesity with a BMI of 54. Operative note:: The patient was seen in the preoperative holding area. The right knee was marked to confirm the correct operative site. She received Ancef 3 g IV prophylactic antibiotics within 1 hour incision time. She received a gram of IV TXA just prior to the incision and as we were closing to help minimize bleeding. She was seen by anesthesia. Brought back to the OR. Spinal performed without difficulty and sedation given throughout the case. She was placed in the supine position and all of her bony prominences were well-padded. Bump was placed underneath the right hip. Nonsterile tourniquet applied to the right thigh. The right lower extremity was prepped and draped in the usual sterile fashion. Timeout was performed to confirm right total knee replacement for patient Pushpa Escamilla. The right lower extremity was exsanguinated with an Esmarch and tourniquet was inflated to 300 mmHg. With the knee flexed a midline incision was made with a 10 blade scalpel. Full-thickness medial and lateral flaps were elevated. Adequate hemostasis was maintained with electrocautery. With a fresh 10 blade scalpel a medial parapatellar arthrotomy was made. The patella was everted. Patellar fat pad and anterior femoral fat pads were excised. A medial release was performed with the Bovie electrocautery. Marginal osteophytes were removed. Medial and lateral Z retractors were placed. Whitesides line was marked. The distal femur was then drilled. Intramedullary distal femoral guide set at 5 degree valgus was pinned in place for a 1 cm distal femoral cut. This cut was made with the oscillating saw. The femur was then sized to a size 5 and a 4 and 1 size 5 cutting guide was pinned in place set a 3 degrees external rotation. Anterior and posterior cuts were made as were chamfer cuts with the oscillating saw and cut bone was removed. We then turned our attention to the tibia. A PCL retractor was placed as were medial and lateral Hohmann retractors. Using the intramedullary guide we made the proximal tibial cut removing 5 mm of bone for the low medial side and a centimeter from the high lateral side with a 3 degree posterior slope. This cut was made with oscillating saw and cut bone was removed. We then removed the medial and lateral menisci as well as posterior osteophytes. Tibia was sized to a size 4 tibial tray centered off the medial third of the tibial tubercle. With a 9 mm block we achieved full extension
--- NOTE | 2023-05-17 13:39 | XR_ITS ---
FINAL REPORT CLINICAL HISTORY: Status post right knee replacement, surgery done today. FINDINGS: 2 views of the right knee were obtained. There has been total right knee arthroplasty. There is extensive gas in the soft tissues consistent with recent surgery. There is no evidence of hardware complication. IMPRESSION: Expected postoperative change from total right knee arthroplasty. Reviewed, Interpreted and Dictated by Jethro Queen MD Transcribed by Valentin Love Authenticated and [facility]
--- NOTE | 2023-05-17 14:18 | SUR.PHASEI ---
1352: Patient rated pain went from 10 to an 8 using the the 0-10 pain scale. 1359: Patient rated pain was at a 5 using the 0-10 pain scale. Patient stated that is base line for her.
--- NOTE | 2023-05-17 14:21 | SUR.PHASEI ---
Adductor Canal Block (TAP Block) Start time: 1326 End Time: 1339 All sterile protocols followed. performed by: MINNIE Jones assisted by: travis colunga; travis leung
--- NOTE | 2023-05-17 14:28 | P.PNANES_ITS ---
[facility] Anesthesia Record Part I Anesthesia Record I Intake, IV Amount: 1,800 Hydration: Adequate Estimated blood loss (mL): 100 Urine output (mL): 0 Blood Products used (#): none Blood Pressure: 188/109 SaO2: 98 Pulse Rate: 75 Airway Patency: Patent Respiratory Rate: 18 Temperature: 97.0 F Patient is:: Awake (Talking) and Stable Stable to PACU at:: 13:05
--- NOTE | 2023-05-17 17:01 | PC.NURSE ---
A&OX4. CAME UP TO FLOOR ON 2LNC, IS NOW ON 1LNC. TOLERATING WELL, WILL CONTINUE TO WEAN TOLERATED. PT HAS RESTED COMFORTABLY SINCE ARRIVAL TO FLOOR. PURE WICK IN PLACE. SCDS IN PLACE. I.S AT BEDSIDE, PT KNOWS HOW TO USE. DRESSING TO R KNEE, CDI. POLAR PACK IN PLACE. PT ABLE TO HELP US WITH TURNING IN BED. STATES PAIN TO R KNEE IS AT A 5 WHICH SHE STATES IS HER BASELINE, AND THAT SHE DOES NOT NEEDS PAIN MEDICATION YET. FAMILY AT BEDSIDE. NO OTHER NEEDS OR C/O NOTED THUS FAR, VSS.
--- NOTE | 2023-05-17 17:32 | EXP.HP ---
History of Present Illness *Admission Date: 05/17/23 *Reason for visit:: R knee replacement *History of present illness: Patient is a 53-year-old female with past medical history of chronic right knee pain, CKD stage II, morbid obesity, atrial fibrillation and hypertension who presents to the hospital for right knee total replacement. Patient was admitted from the OR for observation at time of my evaluation patient complains of right knee pain at the site of surgery otherwise denied chest pain shortness of breath nausea vomiting diarrhea constipation dysuria fevers chills. Patient was cleared by cardiology for the planned procedure. [facility] Disclaimer: The information contained in this section may have been updated after the patient was seen, as this information can be updated by other users. Medical History (Updated 05/17/23 @ 18:21 by David Diaz MD) Afib Bilateral knee pain CKD (chronic kidney disease), stage II Dyspnea Edema Hypertension Implantable loop recorder present Morbid obesity with BMI of 50.0-59.9, adult Primary osteoarthritis of knees, bilateral Surgical History H/O adenoidectomy H/O arthroscopic knee surgery H/O tubal ligation History of History of tonsillectomy Hx of cholecystectomy Status post left knee replacement Family History Other Family history of hypertension No significant family history Social History (Updated 05/17/23 @ 14:47 by Freida Pierson RN) Smoking Status: Former smoker alcohol intake: current substance use type: denies use current occupational status: employed Travel in the last 8 weeks: None household members: spouse housing: house current occupational exposures/hazards: No caffeine: Yes Meds Home Medications and Allergies Home Medications Medication Instructions Recorded Confirmed Type aspirin 81 mg tablet,delayed 81 mg PO DAILY heart health 11/10/21 05/17/23 History release (Adult Aspirin Regimen) omeprazole 20 mg capsule,delayed 20 mg PO DAILY Acid reflux 09/20/22 05/17/23 History release biotin 10,000 mcg capsule 10,000 mcg PO DAILY Supplement 09/24/22 05/17/23 History metformin 500 mg tablet 500 mg PO BID Diabetes 10/21/22 05/17/23 History amlodipine 10 mg tablet 10 mg PO DAILY High Blood Pressure 03/29/23 05/17/23 History hydrochlorothiazide 25 mg tablet 25 mg PO DAILY Fluid 03/29/23 05/17/23 History apixaban 2.5 mg tablet (Eliquis) 2.5 mg PO BID #60 tabs 05/17/23 05/17/23 Rx carvedilol 12.5 mg tablet 12.5 mg PO BID High Blood Pressure 05/17/23 05/17/23 History carvedilol 25 mg tablet 25 mg PO BID High Blood Pressure 05/17/23 05/17/23 History fluoxetine 20 mg capsule 20 mg PO DAILY Mood 05/17/23 05/17/23 History losartan 100 1 tab PO DAILY High Blood Pressure 05/17/23 05/17/23 History mg-hydrochlorothiazide 25 mg tablet oxycodone 5 mg tablet 5 mg PO Q4H PRN pain #30 tabs 05/17/23 05/17/23 Rx New Prescriptions to Start Prescriptions: apixaban 2.5 mg tablet oxycodone 5 mg tablet Allergies Allergy/AdvReac Type Severity Reaction Status Date / Time diphenhydramine Allergy Intermediate CRAZY Verified 05/13/23 12:16 [DIPHENHYDRAMINE] promethazine [From PHENERGAN] Allergy Intermediate CRAZY Verified 05/13/23 12:16 temazepam [TEMAZEPAM] Allergy Intermediate CRAZY Verified 05/13/23 12:16 cefaclor [From Ceclor] Allergy Verified 05/13/23 12:16 Exam Data for Last 24 hours Vital signs and Labs for Last 24 Hours: Temp Pulse Resp BP Pulse Ox O2 Del Method O2 Flow Rate 98.0 F 64 17 145/63 H 96 Nasal Cannula 1 05/17/23 17:05 05/17/23 17:05 05/17/23 17:05 05/17/23 17:05 05/17/23 17:05 05/17/23 17:05 05/17/23 17:05 Laboratory Results - last 24 hr 05/17/23 09:05: WBC 7.9, RBC 4.54, Hgb 12.1 L, Hct 37.1, MCV 81.7, MCH 26.7 L, MCHC 32.6, RDW 15.1, Plt Count 288, MPV 7.
[2023-05-18] VITALS: BP 119/52; PULSE 74; RESP 20; TEMP 37.1; O2SAT 90
[2023-05-18 04:00] VITALS: BP 115/61; PULSE 79; RESP 18; TEMP 37.1; O2SAT 92; BMI 56.4
--- NOTE | 2023-05-18 05:10 | PC.NURSE ---
Patient has had a good night. Has been in Pain, see MAR. was encouraged to use the IS while awake. Patient has been off and on 1L NC. on RA patient is stating between 89-91 with 1L NC she is stating between 92-95. No other issues noted
[2023-05-18 06:24] LABS: Basophils % 0.1 % (0.1-2.0); Eosinophils # 0.1 K/mm3 (0.0-0.4); Eosinophils % 0.6 % (0.1-12.0); Hematocrit 32.5 % (37.0-47.0); Lymphocytes # 1.1 K/mm3 (0.7-4.5); Lymphocytes % 10.5 % (10-50); Mean Corpuscular HGB Conc 32.9 g/dL (31.8-35.4); Mean Corpuscular Hemoglobin 26.8 pg (27.0-31.2); Mean Corpuscular Volume 81.6 fl (81-99); Mean Platelet Volume 7.9 fl (7.4-10.4); Monocytes # 0.4 K/mm3 (0.1-1.0); Monocytes % 4.2 % (1.7-9.3); Neutrophils # 8.6 K/mm3 (1.8-7.8); Neutrophils % 84.5 % (37.0-80.0); Platelet Count 230 K/mm3 (142-424); Red Blood Count 3.98 M/mm3 (4.20-5.40); Red Cell Distribution Width 15.4 % (11.5-17.5); White Blood Count 10.2 K/mm3 (4.8-10.8)
[2023-05-18 06:25] LABS: Anion Gap 10.4 mEq/L (5-15); Blood Urea Nitrogen 12 mg/dl (7-17); Calcium 8.4 mg/dl (8.4-10.2); Carbon Dioxide 27 mmol/L (22.0-30.0); Chloride 103 mmol/L (98-107); Creatinine Clearance Estimated 93 mL/min (50-200); Estimated Glomerular Filt Rate 104 ml/min (>60); GFR (African American) 126 ML/MIN (>60); Glucose 123 mg/dl (74-100); Potassium 4.4 mmoL/L (3.5-5.1); Sodium 136 mmol/L (136-145)
[2023-05-18 06:30] LABS: Hemoglobin 10.7 g/dL (12.2-16.2)
[2023-05-18 08:00] VITALS: BP 155/73; PULSE 79; RESP 18; TEMP 37.3; O2SAT 93
--- NOTE | 2023-05-18 09:40 | HMH.OTEV ---
OT Inpatient Evaluation Rehab OT IP Evaluation Start: 05/17/23 13:33 Freq: ONCE Status: Active Protocol: [facility]18[facility]23 09[facility] (Rec: 05/18/23 09:39 [facility] [id number]) Rehab OT IP Assessment Subjective History Pt oriented x 4 on arrival. Pt agreeable to engage in therapy evaluation. Pt admitted on 05/17/23 following a right TKA. Pt has a past medical history of chronic right knee pain, CKD stage II, morbid obesity, atrial fibrillation and hypertension. Prior to being in the hospital, pt lived at home. She was independent with all ADLs and IADLs. Pt does not require any type of AE during functional tasks. 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 Subjective Little more pain this morning . Objective Patient Orientation Person,Place,Birthday,Month Right Upper Extremity Gross ROM WFL Left Upper Extremity Gross ROM WFL Bed Mobility bed mobility-scooting,bed mobility - supine/sit Assist Level Minimal x 1 (25% assist) Transfer Training Sit/Stand Transfer Assist Level Minimal x 1 (25% assist) Chair Transfer Ability Minimal x 1 (25% assist) Chair Transfer Technique Stand Step Pivot Chair Transfer Assistive Devices Rolling Walker Rehab OT IP prob,goals,plan Problems Date of Evaluation: 05/18/23 OT IP Problems Bed Mobility,Transfers,Balance ,Self care,Safety Rehab Potential Rehab Potential Good Equipment Needs Assistive Devices Rolling / Wheeled Walker Plan OT intervention Plan Bed Mobility,Transfers,Balance ,Self care,Safety,Therapeutic Exercise OT Plan Frequency BID Duration LOS Discharge Goals Bed Mobility Ability Standby Assistance Sit to Stand Chair Transfer Ability Contact Guard/Hand Hold Chair Transfer Ability Contact Guard/Hand Hold Chair Transfer Technique Sit to/from Ambulatory Chair Transfer Assistive Devices Rolling Walker Feeding Ability Assist with Tray Set Up Lower Body Dressing Ability Minimal Assistance Upper Body Dressing Ability Contact Guard Bathing Ability
--- NOTE | 2023-05-18 10:37 | EXP.ANES.II ---
[facility] Anesthesia Record Part II Anesthesia Record Part II Discharge Time: 14:08 Destination: Surgical Day Care (OP Surgery) PACU nurse assessment reviewed?: Yes Patient Condition:: Good Anesthesia Complications:: None Swallowing reflex intact?: Yes Airway Patency: Patent Cyanosis?: No Blood Pressure: 147/70 SaO2: 97 Respiratory Rate: 18 Pulse Rate: 68 Temperature: 97 F Mental Status: Alert & Oriented Pain level:: 5 Nausea and/or vomitting:: None Intake, IV Amount: 0 Hydration: Adequate
[2023-05-18 10:38] VITALS: BP 147/70; PULSE 68; RESP 18; TEMP 36.1; O2SAT 97
--- NOTE | 2023-05-18 10:51 | HMH.PTEV ---
Physical Therapy Evaluation Rehab PT IP Evaluation Start: 05/17/23 13:33 Freq: ONCE Status: Active Protocol: Document 05/18/23 10:34 PHORSUZAN (Rec: 05/18/23 10:41 PHORNE [id number]) Subjective/History History History 53 yowf adm to [facility] S/P R TKA. She reports she lives with family, 2-3 steps to enter the home and she is generally independent with all mobility without AD prior to adm. She had L TKA performed ~5-6 mos ago with excellent results. Subjective Subjective Currently she reports significant pain in the knee, She does agree to mobility assessment. New diagnosis of cancer in past 12 No months? Rehab PT IP Eval Objective Appearance Patient Behavior Appropriate Patient Orientation Person,Place,Time Difficulty following instructions none Speech Pattern Clear Ambulation Patient Able to Ambulate Yes Ambulation Observation IP General Gait Pattern Observation Antalgic Gait,Decrease Weight Bear (R),Decrease Stride Lngth (R),Decrease Stride Lngth (L) Ambulation Distance (feet) 3 Ambulation Assistive Device Rolling Walker Ambulation Ability Contact Guard/Hand Hold Balance Ability to Arise Able, uses arms to help Sitting Balance Steady, safe Standing Balance Steady, wide stance Dynamic Sitting Balance Ability Good Dynamic Standing Balance Ability Good Transfers Bed Transfer Ability Minimal x 2 (25% assist) Chair Transfer Ability Minimal x 1 (25% assist) Sit to Stand Bed Transfer Ability Minimal x 1 (25% assist) Sit to Stand Chair Transfer Ability Minimal x 1 (25% assist) Rehab PT IP prob,goals,plan Problems Date of Evaluation: 05/18/23 PT IP Problems Bed Mobility,Transfers,Gait Rehab Potential Rehab Potential Good Plan PT Intervention Plan Bed Mobility,Transfers,Gait, Therapeutic Exercise PT Plan Frequency Daily Duration LOS Discharge Goals Bed Transfer Ability Contact Guard/Hand Hold Sit to Stand Chair Transfer Ability Contact Guard/Hand Hold Ambulation Assistive Device Rolling Walker Ambulation Distance (feet) 10 Discharge Plan PT Discharge Plan Pt is currently appropriate to return home once medically stable for d/c. Eval Complexity Shahana
--- NOTE | 2023-05-18 14:48 | PC.NURSE ---
PT C/O PAIN RATING 8-10 FOR PAST COUPLE HOURS. PT DID NOT RECEIVE RELIEF AFTER LAST DOSE OF DILAUDID AND OXY. ASKED IF I COULD CONTACT THE MD TO SEE IF THERE IS ANYTHING ELSE WE CAN DO. CONTACTED ANDERSON WHO TOLD ME TO CONTACT TOMAS IF POSSIBLE. TOMAS RETURNED PHONE CALL AND STATED TO KEEP TYLENOL IN HER SYSTEM, AND THAT PT CAN HAVE 2 OXY [id number], PER MAR. ALSO STATED THAT IF PT FEELS SHE NEEDS ANOTHER DAY OR TWO IN THE HOSPITAL, THAT HE IS FINE WITH THAT. UPDATED PT ON POC AND REASSURED HER. ALSO UPDATED MD BARRON AND HE IS ALSO OKAY WITH THE POC. PT GIVEN SECOND OXY AND TYLENOL AT THIS TIME, WILL REASSESS IN 30 MINS. NO OTHER NEEDS OR C/O NOTED.
[2023-05-18 15:46] VITALS: BP 140/48; PULSE 75; RESP 18; TEMP 36.9; O2SAT 91
--- NOTE | 2023-05-18 16:20 | EXP.PN ---
Subjective *Date: 05/18/23 *Time: 16:20 Interval history: Patient was seen and evaluated at the bedside. denies chest pain, shortness of breath, nausea, vomiting, abdominal pain. Patient does not have any complaints at this time. feels better overall Exam Data for Last 24 hours Vital signs and Labs for Last 24 Hours: Temp Pulse Resp BP Pulse Ox O2 Del Method O2 Flow Rate 98.4 F 75 18 140/48 L 91 L Room Air 1 05/18/23 15:46 05/18/23 15:46 05/18/23 15:46 05/18/23 15:46 05/18/23 15:46 05/18/23 15:46 05/18/23 06:54 Laboratory Results - last 24 hr 05/18/23 05:47: WBC 10.2 D, RBC 3.98 L, Hgb 10.7 L D, Hct 32.5 L, MCV 81.6, MCH 26.8 L, MCHC 32.9, RDW 15.4, Plt Count 230, MPV 7.9, Neut % (Auto) 84.5 H, Lymph % (Auto) 10.5, [place] % (Auto) 4.2, Eos % (Auto) 0.6, Baso % (Auto) 0.1, Neut # (Auto) 8.6 H, Lymph # (Auto) 1.1, [place] # (Auto) 0.4, Eos # (Auto) 0.1, Baso # (Auto) 0.0, Sodium 136, Potassium 4.4, Chloride 103, Carbon Dioxide 27, Anion Gap 10.4, BUN 12, Creatinine 0.60, Estimated Creat Clear 93, Estimated GFR 104, Est GFR ( Amer) 126, Glucose 123 H, Calcium 8.4 I & O for Last 24 hours: Intake & Output 05/15/23 05/16/23 05/17/23 05/18/23 23:59 23:59 23:59 23:59 Intake Total 2040 / 2140 1040 / 1040 Output Total 400 / 1100 1999 / 1999 Balance 1640 / 1040 -960 / -960 Weight 152.605 kg 153.64 kg Constitutional Constitutional: no acute distress *Routine HEENT Exam Head: Present normocephalic Eye: Present EOMI and PERRL ENT: Present mucous membranes moist *Routine Neck Exam Neck: Present supple; Absent lymphadenopathy *Routine Respiratory Exam Respiratory: Present CTA bilaterally *Routine Cardiovascular Exam Cardiovascular: Present RRR *Routine Abdominal Exam Abdominal: Present soft and normoactive bowel sounds; Absent tenderness *Routine Extremities Exam Extremities: Absent cyanosis, clubbing or edema *Routine Skin Exam Skin: Present warm; Absent rash *Routine Neurological Exam Neurological: Present alert and oriented X3 Assessment and Plan *Assessment and plan (1) Primary osteoarthritis of knees, bilateral: Status: Chronic Category: Medical Code(s): M17.0 - Bilateral primary osteoarthritis of knee (2) Status post left knee replacement: Status: Acute Category: Surgical Code(s): Z96.652 - Presence of left artificial knee joint (3) Hyperkalemia: Status: Acute Category: Medical Code(s): E87.5 - Hyperkalemia (4) Morbid obesity: Status: Acute Category: Medical Code(s): E66.01 - Morbid (severe) obesity due to excess calories Plan Patient is a 53-year-old female with past medical history of chronic right knee pain, CKD stage II, morbid obesity, atrial fibrillation and hypertension who presents to the hospital for right knee total replacement. Patient was admitted from the OR for observation at time of my evaluation patient complains of right knee pain at the site of surgery otherwise denied chest pain shortness of breath nausea vomiting diarrhea constipation dysuria fevers chills. Patient was cleared by cardiology for the planned procedure. Assessment Right knee total replacement Hyperkalemia Atrial fibrillation CKD stage II Morbid obesity Plan Orthopedics following Consult PT/OT Pain control Status post Lokelma Monitor hemoglobin, monitor BMP Monitor and replace electrolytes Per patient patient tolerated surgery well Continue home amlodipine, Eliquis, aspirin, Coreg, HCTZ, losartan, metformin DVT prophylaxis-on Eliquis
--- NOTE | 2023-05-18 19:01 | PC.NURSE ---
AFTER PRIOR NOTE, PT PAIN HAS BEEN A 5 OR BELOW, AND TOLERABLE. NO OTHER NEEDS NOTED, VSS.
[2023-05-18 20:00] VITALS: BP 160/76; PULSE 65; RESP 16; TEMP 36.9; O2SAT 91; O2SAT 96
[2023-05-19 04:00] VITALS: BP 118/54; PULSE 64; RESP 16; TEMP 37.1; O2SAT 95; BMI 57.1
--- NOTE | 2023-05-19 07:05 | PC.NURSE ---
Patient VSS, LCTA. Patient states pain has been better controlled with taking Oxycodone 2 tabs x 2 doses, Tordol x 1 dose, and starting muscle relaxer Flexeril 5 mg. Patient rested most of the night; call light within reach, bed at lowest level for safety.
[2023-05-19 07:52] VITALS: O2SAT 97
[2023-05-19 08:00] VITALS: BP 142/72; PULSE 83; RESP 18; TEMP 37.1; O2SAT 91
--- NOTE | 2023-05-19 08:51 | PC.NURSE ---
Right knee with no dressing and open to air.
--- NOTE | 2023-05-19 12:23 | EXP.DC.SUM ---
General Admission date:: 05/17/23 Discharge date: 05/19/23 HPI HPI HPI: Patient is a 53-year-old female with past medical history of chronic right knee pain, CKD stage II, morbid obesity, atrial fibrillation and hypertension who presents to the hospital for right knee total replacement. Patient was admitted from the OR for observation at time of my evaluation patient complains of right knee pain at the site of surgery otherwise denied chest pain shortness of breath nausea vomiting diarrhea constipation dysuria fevers chills. Patient was cleared by cardiology for the planned procedure. Hospital Course Hospital Course Hospital Course: Patient was seen and evaluated at the bedside on the day of discharge. Patient is stable for discharge. Patient wishes to be discharged. All patient questions were answered and patient was given time to ask questions. Patient was discharged in stable condition. Patient is a 53-year-old female with past medical history of chronic right knee pain, CKD stage II, morbid obesity, atrial fibrillation and hypertension who presents to the hospital for right knee total replacement. Patient was admitted from the OR for observation at time of my evaluation patient complains of right knee pain at the site of surgery otherwise denied chest pain shortness of breath nausea vomiting diarrhea constipation dysuria fevers chills. Patient was cleared by cardiology for the planned procedure. Assessment Right knee total replacement Hyperkalemia Atrial fibrillation CKD stage II Morbid obesity Plan Orthopedics following Consult PT/OT Pain control Status post Lokelma Monitor hemoglobin, monitor BMP Monitor and replace electrolytes Per patient patient tolerated surgery well Continue home amlodipine, Eliquis, aspirin, Coreg, HCTZ, losartan, metformin DVT prophylaxis-on Eliquis Exam Data for Last 24 hours Vital signs and Labs for Last 24 Hours: Temp Pulse Resp BP Pulse Ox O2 Del Method O2 Flow Rate 98.7 F 83 18 142/72 H 91 L Room Air 1 05/19/23 08:00 05/19/23 08:00 05/19/23 08:00 05/19/23 08:00 05/19/23 08:00 05/19/23 08:00 05/18/23 06:54 I & O for Last 24 hours: Intake & Output 05/16/23 05/17/23 05/18/23 05/19/23 23:59 23:59 23:59 23:59 Intake Total 2040 / 2140 1310 / 1910 960 / 960 Output Total 400 / 1100 2900 / 2900 0 / 0 Balance 1640 / 1040 -1590 / -990 960 / 960 Weight 152.605 kg 153.64 kg 155.537 kg Constitutional Constitutional: no acute distress *Routine HEENT Exam Head: Present normocephalic Eye: Present EOMI and PERRL ENT: Present mucous membranes moist *Routine Neck Exam Neck: Present supple; Absent lymphadenopathy *Routine Respiratory Exam Respiratory: Present CTA bilaterally *Routine Cardiovascular Exam Cardiovascular: Present RRR *Routine Abdominal Exam Abdominal: Present soft and normoactive bowel sounds; Absent tenderness *Routine Extremities Exam Extremities: Absent cyanosis, clubbing or edema *Routine Skin Exam Skin: Present warm; Absent rash *Routine Neurological Exam Neurological: Present alert and oriented X3 DS: Diagnosis Discharge Diagnosis (1) Primary osteoarthritis of knees, bilateral: Status: Chronic Code(s): M17.0 - Bilateral primary osteoarthritis of knee (2) Status post left knee replacement: Status: Acute Code(s): Z96.652 - Presence of left artificial knee joint (3) Hyperkalemia: Status: Acute Code(s): E87.5 - Hyperkalemia (4) Morbid obesity: Status: Acute Code(s): E66.01 - Morbid (severe) obesity due to excess calories Meds Home Medications and Allergies Home Medications Medication Instructions Recorded Confirmed Type aspirin 81 mg tablet,delayed 81 mg PO DAILY heart health 11/10/21 05/17/23 History release (Adult Aspirin Regimen) omeprazole 20 mg capsule,delayed 20 mg PO DAILY Acid reflux 09/20/22 05/17/23 History release biotin 10,000 mcg capsule 10,
--- NOTE | 2023-05-19 14:39 | CARE MANAGER ---
Patient requires an extra heavy-duty base/wheelchair due to pain in knee following surgery. She cannot use a cane or walker at this time.
--- NOTE | 2023-05-23 13:36 | CARE MANAGER ---
Contacted patient related to hospital discharge. She states she h as been unable to put weight on her leg at all since surgery. She plans on contacting the orthopedic tomorrow. She states she needs something for pain and will address it with him tomorrow. However, I contacted the office and they state he is not back in office until June. Left message with his nurse regarding patient's concerns. TIA Connor
== END 2023-05-19 14:00 | disposition home or self-care (01) ==
LOC: 2ND 11:00
PROVIDERS: Orthopaedic Surgery; Admitting Provider Internal Medicine; PCP Family Medicine; Visit Provider Internal Medicine
PROC: (CPT 27447; principal; 2023-05-17 09:30)
DX: E87.5 Hyperkalemia; E66.01 Morbid (severe) obesity due to excess calories; Z68.43 Body mass index [BMI] 50.0-59.9, adult; Z79.899 Other long term (current) drug therapy; N18.2 Chronic kidney disease, stage 2 (mild); I48.91 Unspecified atrial fibrillation; I12.9 Hypertensive chronic kidney disease with stage 1 through stage 4 chronic kidney disease, or unspecified chronic kidney disease; Z87.891 Personal history of nicotine dependence; Z79.01 Long term (current) use of anticoagulants; M17.11 Unilateral primary osteoarthritis, right knee
CPT/HCPCS: 27447; 36415; 71045; 73560; 80048; 80053; 83036; 85025; 93005; 96374; 97140; 97163; 97166; 97530; C1776; G0378; J2405

== ENCOUNTER → 2023-06-08 12:36 | Outpatient (CLI) | payer OTHER, SELFPAY ==
--- NOTE | 2023-06-08 12:49 | XR_ITS ---
FINAL REPORT CLINICAL HISTORY: Rt TKA COMPARISON: 05/17/2023 FINDINGS: Three views of the right knee reveal right knee arthroplasty. Hardware is intact. There has been partial improvement in soft tissue air. Soft tissue calcifications are noted. There is no new abnormality identified. IMPRESSION: No acute abnormality identified. Partial improvement in soft tissue air. Reviewed, Interpreted and Dictated by Bruno Mariscal III, MD Transcribed by Luh Dodge Authenticated and [facility]
== END ==
PROVIDERS: PCP Family Medicine; Visit Provider Orthopaedic Surgery
DX: Z96.651 Presence of right artificial knee joint (principal); M25.561 Pain in right knee
CPT/HCPCS: 73562

== ENCOUNTER 2023-07-06 14:12 | Outpatient (CLI) | payer OTHER, SELFPAY ==
--- NOTE | 2023-07-06 14:18 | XR_ITS ---
FINAL REPORT CLINICAL HISTORY: right tkr COMPARISON: 06/08/2023 FINDINGS: Three views of the right knee reveal no evidence of fracture or dislocation. Status post knee arthroplasty. The bony alignment is normal. The joint spaces are preserved. There is no evidence of joint effusion. No localized soft tissue abnormality is identified. IMPRESSION: No acute abnormality identified. Reviewed, Interpreted and Dictated by Bruno Mariscal III, MD Transcribed by Luh Dodge Authenticated and [facility]
== END 2023-07-06 23:59 ==
LOC: RAD 14:13
PROVIDERS: PCP Family Medicine; Visit Provider Orthopaedic Surgery
DX: Z96.651 Presence of right artificial knee joint (principal)
CPT/HCPCS: 73562

== ENCOUNTER 2023-07-21 16:00 | Outpatient (RCR) | payer OTHER, SELFPAY ==
--- NOTE | 2023-05-19 15:01 | HMH.PTOPEV ---
PT Outpatient Evaluation Rehab PT Outpatient Evaluation Start: 05/19/23 14:07 Freq: Status: Active Protocol: Document 05/19/23 14:29 NUPUR (Rec: 05/19/23 14:58 NUPUR [id number]) E-signed By Matty Maynard, PT Outpatient Therapy Subjective History Subjective History Pt presents s/p right TKA sx. on 05/17/23. Pt reports severe anterior aspect right knee since sx., ronaldo. w/flexion ROM. Pt reports normal post-op swelling and weakness. Pt reports left TKA on 09/21/22, ' that one hurt real bad about 2 -3 weeks after I got home. This one hurt bad immediately. ' Pt reports follow-up w/ referring MD is on 06/08/23. New diagnosis of cancer in past 12 No months? Chief Complaint Pain,Stiff,Swelling,Weakness Symptom Type Ache,Dull Symptoms Relieved By Rest/Positioning,Ice Symptoms Aggravated By Standing,Physical Activity, Walking Prior Functional Limitations Standing,Walking Current Functional Limitations Housework,Standing,Squatting, Walking Symptom Description Constant but Variable Level of pain today (0-10) 3 Pain scale - at its best (0-10) 3 Pain scale - at its worst (0-10) 10 Hip/Knee Eval Gait Observation General Gait Pattern Observation Antalgic Gait,Wide Based Gait, Decrease Weight Bear (R) Assistive Device Assistive Devices Wheelchair Palpation Tenderness right Knee Palpation Finding Tenderness Knee Palpation Overall Comment 3/4 anterio-medial and lateral jt line 3/4, popiteal space 2 -3/4 MMT Hip Flexion Strength Grade 3- Fair- Hip Abduction Strength Grade 3- Fair- Hip Adduction Strength Grade 3- Fair- Hip Extension Strength Grade 3 Fair Knee Extension Strength Grade 3- Fair- Knee Flexion Strength Grade 3+ Fair+ ROM Knee Flexion Active Range of Motion ( 10-35 degrees) Knee Flexion Passive Range of Motion ( 0-35 degrees) Knee ROM Limitations Pain Effusion joint effusion knee exam standard right Mid - Patellar Circumerential Measure ( 54 cm) Lower Extremity Functional Index Activities Today, do you or would you have any difficulty at all with: a.Any of your usual work, housework or Extreme difficulty or unable school activities to perform activity b. Your usual hobbies, recreational or Extreme difficulty or unable sporting activities to perform activity c. Getting into or out of the bath Extreme difficulty or unable to perform activity d. Walking between rooms Extreme difficulty or unable to perform activity e. Putting on your shoes or socks Extreme difficulty or unable to perform activity f. Squatting Extreme difficulty or unable to perform activity g. Lifting an object, like a bag of Extreme difficulty or unable groceries from the floor to perform activity h. Performing light activities around Extreme difficulty or unable your home to perform activity i. Performing heavy activities around Extreme difficulty or unable your home to perform activity j. Getting into or out of a car Quite a bit of difficulty k. Walking 2 blocks Extreme difficulty or unable to perform activity l. Walking a mile Extreme difficulty or unable to perform activity m. Going up or down 10 stairs (about 1 Extreme difficulty or unable flight of stairs) to perform activity n. Standing for 1 hour Extreme difficulty or unable to perform activity o. Sitting for 1 hour No difficulty p. Running on even ground Extreme difficulty or unable to perform activity q. Running on uneven ground Extreme difficulty or unable to perform activity r. Making sharp turns while running fast Extreme difficulty or unable to perform activity s. Hopping Extreme difficulty or unable to perform activity t. Rolling over in bed Quite a bit of difficulty LEFI Score Lower Extremity Functional Index Score 6 Outpatient Therapy Assessment Impairments Problems/Impairmments Palpation Tenderness,Impaired Range of Motion,Impaired Strength,Impaired Gait Pattern ,Impaired Walking,Impaired Standing,Impaired Household Care,Impaired Stair Climbing, Impaired Squatting,Increased Edema,Subjective C/O Pain, Impaired Self Care/Self Management Prognosis Rehab Potential Good Clinical Impression Consistent with Diagnosis Yes Short Term Goals Number of Weeks 4 Decreased Palpation Tenderness Yes: 1-2/4 right knee Increase Range of Motion Yes: 0-100-110 right knee AROM /PROM Increase Strength Yes: 3+-4/5 RIGHT LE Improve Gait Pattern with Assistive Yes: WFL ON LEVEL TERRAIN W/RW Device Increase Ability to Walk Yes: 10MIN Increase Ability to Stand Yes: 10MIN Improve Ability For Household Care Yes: 10MIN Improve LEFI Score Yes: 40/80 Decrease Edema Yes: 40-50% IMPROVEMENT RLE Decrease Subjective C/O Pain Yes: 4-5/10 W/ABOVE ACTIVITIES Patient to be Ind w/ HEP 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 Scientific 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 Number of Weeks 8-10 Decreased Palpation Tenderness Yes: 0-1/4 RIGHT KNEE Increase Range of Motion Yes: 0-120-125 RIGHT KNEE AROM Increase Strength Yes: 4+-5/5 RLE Improve Gait Pattern without Assistive Yes: WFL ON LEVEL TERRAIN Device Increase Ability to Walk Yes: 30MIN Increase Ability to Stand Yes: 30MIN Improve Ability For Household Care Yes: 30MIN Improve Ability to Climb Stairs Yes: WFL HHAX1-2 Improve Ability to Squat Yes: WFL FULL-DEPTH Improve LEFI Score Yes: 60-70/80 Decrease Edema Yes: WFL RLE Decrease Subjective C/O Pain Yes: 0-2/10 W/ABOVE ACTIVITIES Patient to be Ind w/ Advanced HEP Yes Outpatient Therapy Plan of Care Treatment Plan May Include Therapeutic Exercise Including Home Yes Exercise Program Manual Therapy Techniques Yes Neuromuscular Re-education Yes Therapeutic Activities to Return to Yes Previous Functional/Work Level Dry Needling Yes Thermal Modalities Yes Electrical Stimulation Yes Ultrasound/Phonophoresis Yes Orthotics/Bracing/Splinting Yes Vasopneumatic Compression Pump Yes Eval/Re-Eval Yes Frequency Times per week 2-3 Duration Number of Weeks 8-10 Addendums This patient is a candidate for social No or vocational rehab? Patient/Guardian verbally acknowledges Yes understanding of treatment program and consents to further treatment? Patient/Guardian verbally acknowledges Yes understanding of diagnosis, prognosis and goals for treatment? Eval Complexity PT Charges 26304 - Moderate Complexity Shoulder/Elbow Eval Shoulder Objective Measurements Elbow Objective Measurements PHYSICIAN CERTIFICATION: I certify the specified therapy services for Pushpa Escamilla are required, authorized, and reviewed every 30 days.
--- NOTE | 2023-06-29 15:56 | HMH.RHREAS ---
Rehab Reassessment Rehab OP Re-assessment Start: 05/19/23 14:07 Freq: Status: Active Protocol: Document 06/29/23 14:42 DESEANLEANNA (Rec: 06/29/23 15:56 NUPUR [id number]) E-signed By Matty Maynard, PT Lower Extremity Functional Index Activities Today, do you or would you have any difficulty at all with: a.Any of your usual work, housework or A little bit of difficulty school activities b. Your usual hobbies, recreational or A little bit of difficulty sporting activities c. Getting into or out of the bath No difficulty d. Walking between rooms No difficulty e. Putting on your shoes or socks A little bit of difficulty f. Squatting Moderate difficulty g. Lifting an object, like a bag of A little bit of difficulty groceries from the floor h. Performing light activities around A little bit of difficulty your home i. Performing heavy activities around Moderate difficulty your home j. Getting into or out of a car A little bit of difficulty k. Walking 2 blocks Moderate difficulty l. Walking a mile Quite a bit of difficulty m. Going up or down 10 stairs (about 1 Moderate difficulty flight of stairs) n. Standing for 1 hour Quite a bit of difficulty o. Sitting for 1 hour No difficulty p. Running on even ground Quite a bit of difficulty q. Running on uneven ground Quite a bit of difficulty r. Making sharp turns while running fast Quite a bit of difficulty s. Hopping Quite a bit of difficulty t. Rolling over in bed No difficulty LEFI Score Lower Extremity Functional Index Score 48 Rehab Re-assessment Subjective Subjective Pt reports 0-3/10 right knee pain on VAS depnding on activity. Objective Objective Notes AROM: RIGHT KNEE FLX 4-112, PROM RIGHT KNEE FLX 0-121 MMT: RIGHT HIP FLX 4+/5, R KNEE EXT 4+/5, R KNEE FLX 4-4+ /5, R HIP ABD, ADD, EXT 4-4+/5 TTP: MEDIAL JT LINE RIGHT KNEE 1-2/4, PES ANSERINE/MEDIAL TIBIAL PLATEAU 2-3/4 GAIT:WFL ON LEVEL TERRAIN LEF INDEX 48 VS 6 ON I EVAL Assessment Progress Assessment Progressing as Expected Assessment Notes SIGNIFICANT IMPROVEMENTS IN A- /PROM, STRENGTH, TTP, LEF INDEX SCORE, AND GAIT Patient goals met STG'S 04/13, LTG'S 12/14 Goals Not Met STG'S 07/14, LT7G' Plan Plan Pt to contineu w/skilled P.T. to make further improvements in ROM, strength, TTP, and gait to allow for optimal function Frequency of Therapy 1-2x/wk Duration of therapy 4-6wks Time and Billing Re-Eval Time 12 Re-Eval Billing Units 1 PHYSICIAN CERTIFICATION: I certify the specified therapy services for Pushpa Escamilla are required, authorized, and reviewed every 30 days.
== END 2023-07-21 17:00 | disposition home or self-care (01) ==
LOC: PT 16:00
PROVIDERS: PCP Family Medicine; Visit Provider Orthopaedic Surgery
DX: M25.561 Pain in right knee (principal); Z96.651 Presence of right artificial knee joint
CPT/HCPCS: 97010; 97014; 97110; 97116; 97140; 97163; 97164; 97530; G0283

== ENCOUNTER 2023-10-28 09:43 | Outpatient (CLI) | payer OTHER, SELFPAY ==
--- NOTE | 2023-10-28 09:50 | XR_ITS ---
FINAL REPORT CLINICAL HISTORY: pain in shoulder pt states had knee surgery & now having shoulder pain possibly from compensating post knee surgery FINDINGS: RIGHT SHOULDER Three views demonstrate no acute fracture or dislocation. There are mild hypertrophic changes of the acromioclavicular joint. The soft tissues are unremarkable. IMPRESSION: Degenerative changes with no acute bony abnormality. Reviewed, Interpreted and Dictated by Jethro Queen MD Transcribed by Kylie Beard Authenticated and [facility]
--- NOTE | 2023-10-28 09:50 | XR_ITS ---
FINAL REPORT CLINICAL HISTORY: shoulder pain pt states had knee surgery & now having shoulder pain possibly from compensating post knee surgery FINDINGS: LEFT SHOULDER Three views demonstrate no acute fracture or dislocation. There are mild hypertrophic changes of the acromioclavicular joint. The soft tissues are unremarkable. IMPRESSION: Degenerative changes with no acute bony abnormality. Reviewed, Interpreted and Dictated by Jethro Queen MD Transcribed by Kylie Beard Authenticated and [facility]
[2023-10-28 10:02] LABS: Basophils # 0.1 K/mm3 (0-0.2); Basophils % 1.9 % (0.1-2.0); Eosinophils # 0.2 K/mm3 (0.0-0.4); Eosinophils % 2.1 % (0.1-12.0); Hematocrit 37.3 % (37.0-47.0); Hemoglobin 11.8 g/dL (12.2-16.2); Lymphocytes # 1.6 K/mm3 (0.7-4.5); Lymphocytes % 22.5 % (10-50); Mean Corpuscular HGB Conc 31.6 g/dL (31.8-35.4); Mean Corpuscular Hemoglobin 25.7 pg (27.0-31.2); Mean Corpuscular Volume 81.3 fl (81-99); Monocytes # 0.4 K/mm3 (0.1-1.0); Neutrophils # 4.9 K/mm3 (1.8-7.8); Neutrophils % 68.5 % (37.0-80.0); Platelet Count 287 K/mm3 (142-424); Red Blood Count 4.59 M/mm3 (4.20-5.40); Red Cell Distribution Width 16.3 % (11.5-17.5); White Blood Count 7.2 K/mm3 (4.8-10.8)
[2023-10-28 10:36] LABS: Alanine Aminotransferase 17 U/L (12-78); Albumin/Globulin Ratio 1.4 (1.1-1.8); Alkaline Phosphatase 91 U/L (38-126); Anion Gap 12.4 mEq/L (5-15); Aspartate Amino Transferase 26 U/L (14-36); Bilirubin,Total 0.6 mg/dl (0.2-1.3); Blood Urea Nitrogen 16 mg/dl (7-17); Calcium 9.4 mg/dl (8.4-10.2); Carbon Dioxide 26 mmol/L (22.0-30.0); Chloride 106 mmol/L (98-107); Chol/HDL Ratio 4.3 (1-3.5); Cholesterol 208 mg/dl (140-200); Estimated Glomerular Filt Rate 75 ml/min (>60); GFR (African American) 90 ML/MIN (>60); Globulin 2.8 g/dL (1.3-3.2); Glucose 112 mg/dl (74-100); HDL Cholesterol 48 mg/dl (40-60); Potassium 4.4 mmoL/L (3.5-5.1); Sodium 140 mmol/L (136-145); Total Protein,Serum 6.8 g/dl (6.3-8.2); Triglycerides 85 mg/dl (30-150); VLDL Cholesterol 17 mg/dL (0-40)
[2023-10-28 10:47] LABS: Direct LDL Cholesterol 122.65 mg/dL (100-129)
[2023-10-28 11:06] LABS: Thyroid Stimulating Hormone < 0.02 uIU/mL (0.465-4.68)
== END 2023-10-28 23:59 | disposition home or self-care (01) ==
LOC: LAB 09:44
PROVIDERS: PCP Internal Medicine; Visit Provider Internal Medicine
DX: M25.511 Pain in right shoulder (principal); M25.512 Pain in left shoulder; R53.83 Other fatigue
CPT/HCPCS: 73030; 80053; 80061; 83036; 84443; 85025

== ENCOUNTER 2023-11-08 11:50 | Outpatient (CLI) | payer OTHER, SELFPAY ==
[2023-11-08 12:40] LABS: Iron 54 ug/dL (37-170)
[2023-11-08 12:50] LABS: Total Iron Binding Capacity 363 ug/dL (265-497)
[2023-11-08 13:12] LABS: Thyroid Stimulating Hormone 2.05 uIU/mL (0.465-4.68)
[2023-11-08 13:16] LABS: Ferritin 33.1 ng/ml (11.1-264)
[2023-11-08 13:50] LABS: Vitamin B12 541 pg/mL (239-931)
[2023-11-08 13:53] LABS: Folate 5.43 ng/mL
[2023-11-08 13:59] LABS: Basophils # 0.1 K/mm3 (0-0.2); Basophils % 0.9 % (0.1-2.0); Eosinophils # 0.2 K/mm3 (0.0-0.4); Eosinophils % 1.9 % (0.1-12.0); Hematocrit 38.9 % (37.0-47.0); Lymphocytes # 2.1 K/mm3 (0.7-4.5); Lymphocytes % 23.6 % (10-50); Mean Corpuscular HGB Conc 30.8 g/dL (31.8-35.4); Mean Corpuscular Hemoglobin 25.1 pg (27.0-31.2); Mean Corpuscular Volume 81.5 fl (81-99); Mean Platelet Volume 8.5 fl (7.4-10.4); Monocytes # 0.4 K/mm3 (0.1-1.0); Monocytes % 4.9 % (1.7-9.3); Neutrophils % 68.7 % (37.0-80.0); Platelet Count 341 K/mm3 (142-424); Red Blood Count 4.77 M/mm3 (4.20-5.40); Red Cell Distribution Width 16.1 % (11.5-17.5); White Blood Count 8.7 K/mm3 (4.8-10.8)
[2023-11-10 11:56] LABS: Peripheral Smear Review Scanned Result
== END 2023-11-08 23:59 | disposition home or self-care (01) ==
LOC: LAB 11:51
PROVIDERS: PCP Internal Medicine; Visit Provider Internal Medicine
DX: R53.83 Other fatigue (principal); Z68.43 Body mass index [BMI] 50.0-59.9, adult
CPT/HCPCS: 82607; 82728; 82746; 83540; 83550; 84443; 85025

== ENCOUNTER 2023-11-08 15:06 | Outpatient (RCR) | payer OTHER, SELFPAY ==
--- NOTE | 2023-11-08 16:06 | HMH.PTOPWND ---
Rehab Outpt Wound Evaluation Rehab OP Wound Evaluation Start: 11/08/23 15:57 Freq: Status: Active Protocol: Document 11/08/23 15:57 PHORSUZAN (Rec: 11/08/23 16:06 PHORNE Laptop) E-signed By Sunil Menjivar, PT Subjective/History History History This is the initial PT eval for Pushpa Escamilla, 53 yowf who presents with B LE edema increased x ~ 1 yr. She reports insidious onset of symptoms, but states, It started around the same time they put me on HTN meds and right before my first total knee surgery. She has hx of B TKA, , CCY, HTN. She reports no changes with elevation of her legs and her swelling is worse intermittently. She reports discomfort with increased edema as well. Subjective Subjective She presents with 0/10 pain at this time, 3/10 at worst. No tenderness to palpation at this time. No erythema noted currently. Edema is 1+ pitting overlying moderate fibrotic edema from the knee distally B . New diagnosis of cancer in past 12 No months? Lymphedema Eval Classification of Lymphedema Secondary Lymphedema Yes Stemmer's sign Stemmer's Sign yes Stage of Lymphedema Lymphedema stages Stage II (Pitting edema, increased fibrosis w/ decreased pitting) Skin Changes Dry Skin Yes Skin Folds Yes Discoloration of Skin Yes Other Changes Yes Pain Scale Pain Scale (0-10) 3 Affected Extremities Areas Affected by Lymphedema/Edema Right Lower Extremity,Left Lower Extremity Lower Extremity Measurements Right MTP Measurement (cm) 22.7 Heel Measurement (cm) 33.5 10 cm Proximal to Lateral Malleoli 37.9 Measurement (cm) 20 cm Proximal to Lateral Malleoli 47.9 Measurement (cm) 30 cm Proximal to Lateral Malleoli 50.6 Measurement (cm) 40 cm Proximal to Lateral Malleoli 0 Measurement (cm) 50 cm Proximal to Lateral Malleoli 0 Measurement (cm) 60 cm Proximal to Lateral Malleoli 0 Measurement (cm) Lower Extremity Measurement Total (cm) 192.6 Left MTP Measurement (cm) 23.2 Heel Measurement (cm) 32.4 10 cm Proximal to Lateral Malleoli 37.8 Measurement (cm) 20 cm Proximal to Lateral Malleoli 48.5 Measurement (cm) 30 cm Proximal to Lateral Malleoli 50.5 Measurement (cm) 40 cm Proximal to Lateral Malleoli 0 Measurement (cm) 50 cm Proximal to Lateral Malleoli 0 Measurement (cm) 60 cm Proximal to Lateral Malleoli 0 Measurement (cm) Lower Extremity Measurement Total (cm) 192.4 Manual Lymphatic Drainage Treatment Area MLD Treatment Area Right Lower Extremity,Left Lower Extremity Wound Problems/Impairments Impairments Problems/Impairmments Impaired Household Care, Impaired Recreational Activities,Increased Edema, Lymphedema Present,Subjective C/O Pain,Impaired Self Care/ Self Management Prognosis Rehab Potential Good Clinical Impression Consistent with Diagnosis Yes Short Term Goals Number of Weeks 2 Decrease Edema Yes: no pitting edema noted B LE Decrease Subjective C/O Pain Yes: 2/10 at worst B LE Patient to Understand Lymphedema Yes Treatment and Exercises Decrease Girth Measurments by (cm) Yes: B LE total by 5 cm ea 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 Goals Number of Weeks 4 Decrease Lymphedema Yes: Minimal fibrotic edema noted B LE Decrease Subjective C/O Pain Yes: 0/10 at worst B LE Patient to be Ind w/ HEP Yes Patient to be Ind w/ Donning/[place]wig Yes Compression Garments Patient to Adhere Lymphedema Precautions Yes Decrease Girth Measurments by (cm) Yes: B LE total by 10 cm ea Outpatient Therapy Plan of Care Treatment Plan May Include Therapeutic Exercise Including Home Yes Exercise Program Manual Therapy Techniques Yes Neuromuscular Re-education Yes Therapeutic Activities to Return to Yes Previous Functional/Work Level ADL/Self Care Education Yes Orthotics/Bracing/Splinting Yes Manual Lymphatic Drainage Yes Eval/Re-Eval Yes Frequency Times per week 2 Duration Number of Weeks 4 Addendums This patient is a candidate for social No or vocational rehab? Patient/Guardian verbally acknowledges Yes understanding of treatment program and consents to further treatment? Patient/Guardian verbally acknowledges Yes understanding of diagnosis, prognosis and goals for treatment? Eval Complexity PT Charges 12528 - High Complexity PHYSICIAN CERTIFICATION: I certify the specified therapy services for Pushpa Escamilla are required, authorized, and reviewed every 30 days.
== END 2023-11-08 15:10 | disposition home or self-care (01) ==
LOC: PT 15:06
PROVIDERS: Visit Provider Internal Medicine
DX: I89.0 Lymphedema, not elsewhere classified (principal)
CPT/HCPCS: 97163

== ENCOUNTER 2023-12-26 09:16 | Outpatient (CLI) | payer OTHER, SELFPAY ==
--- NOTE | 2023-12-26 09:16 | XR_ITS ---
FINAL REPORT TECHNIQUE: Bone densitometry calculations of the lumbar spine and left hip were obtained. CLINICAL HISTORY: osteroporosis FINDINGS: Using L1-4, the bone mineral density of the spine is 1.111 g/cm2, corresponding to T-score of 0.6. Using the left hip, the bone mineral density of the femoral neck is -0.800 g/cm2, corresponding to a T-score of -0.4. NOTE: T-score: Standard deviation compared with peak bone mass of young adult mean. *Following the recommendations of the International Society of Bone densitometry, classification of hip BMD is based on the lower of two T-scores; total hip or femoral neck. IMPRESSION: Normal bone mineral density of the lumbar spine and hip. Reviewed, Interpreted and Dictated by Mervat Guillen MD Transcribed by Huma Hamilton Authenticated and [facility]
== END 2023-12-26 23:59 | disposition home or self-care (01) ==
LOC: RAD 09:16
PROVIDERS: PCP Internal Medicine; Visit Provider Family Medicine
DX: Z91.89 Other specified personal risk factors, not elsewhere classified (principal); M81.0 Age-related osteoporosis without current pathological fracture
CPT/HCPCS: 77080

== ENCOUNTER 2023-12-28 14:27 | Outpatient (CLI) | payer OTHER, SELFPAY ==
--- NOTE | 2023-12-28 14:28 | MR_ITS ---
FINAL REPORT TECHNIQUE: Multiplanar MR, without and with gadolinium enhancement CLINICAL HISTORY: back pain COMPARISON: None FINDINGS: Sagittal images show normal vertebral height. Alignment is normal. Marrow signal pattern is unremarkable. There is no abnormal enhancement. L1-2: Unremarkable. L2-3: Unremarkable. L3-4: Mild annular disc bulge. Moderate facet arthropathy. Mild bilateral neural foraminal narrowing. L4-5: Mild annular disc bulge. Moderate facet arthropathy. Mild bilateral neural foraminal narrowing. L5-S1: Small left paracentral disc protrusion. Mild bilateral neural foraminal narrowing. IMPRESSION: Multilevel degenerative changes as above. Reviewed, Interpreted and Dictated by Mervat Guillen MD Transcribed by Luh Dodge Authenticated and [facility]
[2023-12-28 15:12] LABS: Blood Urea Nitrogen 17 mg/dl (7-17); Estimated Glomerular Filt Rate 52 ml/min (>60); GFR (African American) 63 ML/MIN (>60)
[2023-12-28] MEDS: GADOTERIDOL INJ 20ML SYRINGE 20 ML IV (15:36)
[2023-12-28] MEDS: GADOTERIDOL INJ 10ML SYRINGE 8 ML IV (15:36)
[2023-12-28] MEDS: SODIUM CHLORIDE 0.9% 10ML FLUSH SYRINGE 10 ML IV (15:37)
== END 2023-12-28 23:59 | disposition home or self-care (01) ==
LOC: RAD 14:28
PROVIDERS: PCP Internal Medicine; Visit Provider Internal Medicine
DX: M54.9 Dorsalgia, unspecified (principal)
CPT/HCPCS: 72158; 82565; 84520; A9576

== ENCOUNTER 2024-01-12 15:16 | Outpatient (CLI) | payer OTHER, SELFPAY ==
--- NOTE | 2024-01-12 15:17 | US_ITS ---
PROCEDURE: US TRANSVAGINAL CLINICAL INDICATION: post menopausal bleeding COMPARISON: No exams were available for comparison FINDINGS: Transvaginal sonographic images of the pelvis were obtained. UTERUS: 7.1cm x 4.7 cmx 2.9 cm anteverted with a combined endometrial thickness of 2.9mm. There appears to be a mass in the cervix measuring 2.0 x 1.0 cm x 1.5 cm. The cervix appears enlarged. There is an anterior fibroid measuring 1.0 cm x 0.7 cm x 1.1 cm. LEFT OVARY: Left ovary is not visualized. RIGHT OVARY: 1.1cmx 1.7 cmx1.7 cm with a volume of 1.6ml. Right ovary is seen and appears atrophic. Doppler flow to right ovary is seen. There is no fluid in the cul-de-sac. IMPRESSION: 1. Anteverted uterus normal in shape and size. The endometrium is thin. 2. There is an anterior fibroid measuring 1.1 cm. 3. There is a mass in the cervix that measures up 2.0 cm. It has a multi-cystic appearance. The cervix appears enlarged. Suggest sampling. 4. The right ovarian appears atrophic. The left ovary is not visualized. 5. No fluid in the cul-de-sac. Dictated by: Colton Bernardo MD 01/13/2024 09:28 Colton Bernardo MD in OV 01/13/2024 09:28
== END 2024-01-12 23:59 | disposition home or self-care (01) ==
LOC: RAD 15:17
PROVIDERS: PCP Internal Medicine; Visit Provider Nurse Practitioner Obstetrics & Gynecology
DX: N93.9 Abnormal uterine and vaginal bleeding, unspecified (principal)
CPT/HCPCS: 76830

== ENCOUNTER 2024-02-06 08:55 | Outpatient (POV) | payer OTHER, SELFPAY ==
--- NOTE | 2024-02-06 09:39 | EXP.PAIN.OV ---
HPI Data of Consult Patient: new to practice Consult date: 02/06/24 Requesting Physician: Juhi Yan APRN Primary Care Provider: Salinas Mcnair DO Consult Narrative Reason for consult: Low back pain History of present illness: InMs. Escamilla is a 53 year old female who presents today as a new patient. She rates her pain today a 10 out of 10. Patient states her pain is all across her low scribes it as a tight constant aching, throbbing sensation. She denies any symptoms into her legs. She does state that any type of activity whether standing, bending, twisting aggravates the symptoms. She does state the pain interferes with her ability to perform activities of daily living such as cooking and cleaning. Patient does state that she has tried embb-vfb-fupvogi medication including ibuprofen along with heat and ice and topicals with minimal relief. Patient has had physical therapy in the past and does continue to do at home stretching and exercise for longer than 6 weeks with no changes. Patient is looking for any help that we may be able to provide. She does also have bilateral shoulder pain that she has done injections in the past from orthopedics and got significant relief. Patient would like to try injection therapy for her back and denies any prior injections or surgery. Her Willi has been reviewed and is appropriate. CC: Juhi Yan APRN [facility] Disclaimer: The information contained in this section may have been updated after the patient was seen, as this information can be updated by other users. Medical History Anemia Shoulder pain, bilateral X-rays of the shoulders bilaterally did reveal degenerative change. I will discuss potential of injections with her when I see her back. Additionally we could consider MRI or sending her to orthopedics. Both of these are options. I think we could try injections if this does not work I would send her to therapeutics. Morbid obesity CKD (chronic kidney disease), stage II Patient comes with this diagnosis however GFR has been 75-104 over the last 3 visits. I do not see any reason to continue with this diagnosis in this patient although we will be checking kidney function in the future. Hypertension Arthritis Hyperkalemia Implantable loop recorder present Edema Dyspnea Primary osteoarthritis of right knee Chronic pain of right knee Aftercare following left knee joint replacement surgery Afib Bilateral knee pain Primary osteoarthritis of knees, bilateral Morbid obesity with BMI of 50.0-59.9, adult Complicates all aspects of care Surgical History History of endometrial ablation Status post left knee replacement History of H/O arthroscopic knee surgery H/O tubal ligation H/O adenoidectomy History of tonsillectomy Hx of cholecystectomy Family History Other Family history of hypertension No significant family history Social History Smoking Status: Former smoker alcohol intake: current alcohol intake frequency: holidays/special occasions only substance use type: denies use current occupational status: employed Travel in the last 8 weeks: None household members: spouse housing: house current occupational exposures/hazards: No caffeine: Yes Review of Systems Review of Systems Review of systems:: pertinent systems reviewed and negative unless documented below Review of systems (narrative): Review of Systems: General: No recent weight changes, no fever, no sleep disturbances Respiratory: No cough, no shortness of air, no recurring pulmonary infections Cardiovascular/peripheral vascular: No chest pain, no palpitations, no edema, no shortness of breath Gastrointestinal: No new onset incontinence, normal bowel movements reported Genitourinary: No new onset incontinence Musculoskeletal: Low back pain Psychiatric: [Normal mood/affect] Neurological: [Denies weakness in extremities], [denies balance issues] Meds Home Medications and Allergies Home Medications ?Medication ?Instructions ?Recorded ?Confirmed ?Type aspirin 81 mg tablet,delayed 81 mg PO DAILY heart health 11/10/21 01/17/24 History release (Adult Aspirin Regimen) biotin 10,000 mcg capsule 10,000 mcg PO DAILY Supplement 09/24/22 01/17/24 History metformin 500 mg tablet 500 mg PO BID Diabetes 10/21/22 01/17/24 History amlodipine 10 mg tablet 10 mg PO DAILY High Blood Pressure 03/29/23 01/17/24 History omeprazole 20 mg capsule,delayed See Rx Instructions .Route 07/25/23 01/17/24 Rx release .COMPLEX #90 caps atorvastatin 10 mg tablet 10 mg PO DAILY #30 tabs 10/31/23 01/17/24 Rx buspirone 15 mg tablet 15 mg PO BID #60 tabs 10/31/23 01/17/24 Rx carvedilol 12.5 mg tablet 12.5 mg PO BID High Blood Pressure 11/21/23 01/17/24 Rx #90 tabs carvedilol 25 mg tablet 25 mg PO BID High Blood Pressure 11/21/23 01/17/24 Rx #90 tabs venlafaxine 75 mg tablet See Rx Instructions .Route 01/23/24 Rx .COMPLEX #90 tabs losartan 100 mg tablet See Rx Instructions .Route 02/06/24 Rx .COMPLEX #30 tabs New Prescriptions to Start Prescriptions: Allergies Allergy/AdvReac Type Severity Reaction Status Date / Time diphenhydramine Allergy Intermediate CRAZY Verified 01/17/24 15:51 [DIPHENHYDRAMINE] promethazine [From PHENERGAN] Allergy Intermediate CRAZY Verified 01/17/24 15:51 temazepam [TEMAZEPAM] Allergy Intermediate CRAZY Verified 01/17/24 15:51 cefaclor [From Ceclor] Allergy Verified 01/17/24 15:51 Objective Narrative: Physical Exam: General: Alert and oriented x3, no acute distress, pleasant and cooperative Lungs: Respirations even and unlabored, symmetrical chest expansion Eyes: PERRL Musculoskeletal: Flexion and extension of lumbar [spine] somewhat guarded secondary to pain, [antalgic gait noted] positive Kemps test Neurological: Speech clear, no gross sensory deficit Additional findings Additional findings: FINDINGS: Sagittal images show normal vertebral height. Alignment is normal. Marrow signal pattern is unremarkable. There is no abnormal enhancement. L1-2: Unremarkable. L2-3: Unremarkable. L3-4: Mild annular disc bulge. Moderate facet arthropathy. Mild bilateral neural foraminal narrowing. L4-5: Mild annular disc bulge. Moderate facet arthropathy. Mild bilateral neural foraminal narrowing. L5-S1: Small left paracentral disc protrusion. Mild bilateral neural foraminal narrowing. IMPRESSION: Multilevel degenerative changes as above. Reviewed, Interpreted and Dictated by Mervat Guillen MD Transcribed by Luh Dodge Authenticated and [facility] Assessment and Plan *Assessment and plan (1) Degenerative disc disease, lumbar: Status: Acute Category: Medical Code(s): M51.36 - Other intervertebral disc degeneration, lumbar region (2) Lumbar facet arthropathy: Status: Acute Category: Medical Code(s): M47.816 - Spondylosis without myelopathy or radiculopathy, lumbar region Plan Patient is experiencing worsening pain in her low back with limited range of motion and a positive Kemps test. I did discuss with the patient that she may benefit from a lumbar medial branch block. Risk and benefits were discussed with patient and she would like to proceed forward with this plan of care. I will also order the patient compounded cream and send her for evaluation and treatment by physical therapy for her low back symptoms. Patient is agreeable to this plan of care. Patient has tried and failed conservative treatment including continued at home stretching exercise for longer than 6 weeks. Patient will be scheduled for her first lumbar medial branch block bilaterally L3-L4 and L4-L5 under fluoroscopy. She was counseled if she has significant relief we will plan on doing a repeat injection with the possibility of a lumbar RFA at a later date. We will follow-up with this in future. Patient has been instructed to contact the clinic with any concerns before the next appointment. Dr. Hagen has reviewed this note and agrees with this plan of care. This note was dictated using voice recognition software and make contain errors or omissions. All injections are used with Lidocaine or Bupivacaine and Depo Medrol.
[2024-02-06 12:09] VITALS: BP 175/70; PULSE 60; RESP 18; BMI 52.2
== END 2024-02-06 23:59 | disposition home or self-care (01) ==
LOC: SC.PAIN 08:56
PROVIDERS: PCP Internal Medicine; Visit Provider Nurse Practitioner Family
DX: M51.36 Other intervertebral disc degeneration, lumbar region (principal); M47.816 Spondylosis without myelopathy or radiculopathy, lumbar region; Z87.891 Personal history of nicotine dependence; Z95.811 Presence of heart assist device; Z73.89 Other problems related to life management difficulty; Z79.899 Other long term (current) drug therapy; E66.01 Morbid (severe) obesity due to excess calories; Z68.43 Body mass index [BMI] 50.0-59.9, adult; Z96.652 Presence of left artificial knee joint
CPT/HCPCS: 99202; G0463

== ENCOUNTER 2024-02-14 11:38 | Day surgery (SDC) | payer OTHER, SELFPAY ==
[2024-02-14 11:52] VITALS: BP 162/79; PULSE 57; RESP 16; TEMP 36.2; O2SAT 96; BMI 52.2
[2024-02-14 12:28] VITALS: BP 162/71; PULSE 56; RESP 18; O2SAT 96
--- NOTE | 2024-02-14 12:29 | P.PCN_ITS ---
Procedure Date: 02/14/24 Time: 12:15 Anesthesiologist:: Lalo Barnes CRNA Complications:: None Pre-procedure Diagnosis:: Degenerative disc lumbar spine multilevels. Lumbar radiculopathy. Lumbar spondylosis. Multilevel lumbar facet arthropathy. Post-procedure Diagnosis:: Same. Indications for Procedure:: Patient is a pleasant 53-year-old female comes to clinic today for bilateral medial branch block L3-4, L4-5. This is round 1 of medial branch blocks for this patient. She describes low back pain as constant, dull, aching. Pain intensifies with ambulation and/or sitting for any length of time. She has difficulty with flexion, extension, left and right rotation. She rates her pain 8/10. Procedure Details:: Informed consent was obtained and the risk and benefits of the procedure was explained to the patient. Patient was taken to the procedure room where noninvasive monitors were placed, including noninvasive blood pressure cuff as well as pulse oximeter. The area over the lumbar spine was cleansed using chlorhexidine as a cleansing solution. I anesthetized the skin and subcutaneous tissues with 1% Lidocaine. I placed 22-gauge spinal needles into the facet joint/ medial branches of [L3-L4, L4-L5, bilaterally. Needle placement was confirmed with fluoroscopy. After confirmation of needle placement, each site was injected with 1 mL of 1% lidocaine and 0.25 % Marcaine and 10 mg of Depo- Medrol. A total of 80 mg of depo medrol was used for bilateral medial branch blocks of [L3-L4, L4-L5, bilaterally. Patient tolerated the procedure without difficulty. There were no complications. Plan and Disposition:: Patient was discharged without incident.
[2024-02-14] MEDS: LIDOCAINE 1% 5ML PF VIAL 5 ML (14:20)
[2024-02-14 14:21] VITALS: BP 123/62; PULSE 61; RESP 18
[2024-02-14] MEDS: methylPREDNISolone ACETATE 80MG/ML VIAL 80 MG (14:21)
[2024-02-14] MEDS: BUPIVACAINE 0.25% 10ML INJ 25 MG IJ (14:21)
[2024-02-14 14:23] VITALS: BP 123/62; PULSE 61; RESP 18
== END 2024-02-14 12:28 | disposition home or self-care (01) ==
PROVIDERS: PCP Internal Medicine; Visit Provider Nurse Anesthetist, Certified Registered
DX: M47.816 Spondylosis without myelopathy or radiculopathy, lumbar region (principal); M51.36 Other intervertebral disc degeneration, lumbar region
CPT/HCPCS: 64493; 64494; J1010

== ENCOUNTER 2024-02-21 08:34 | Outpatient (CLI) | payer OTHER, SELFPAY ==
[2024-02-21 08:48] LABS: Basophils # 0.1 K/mm3 (0-0.2); Basophils % 0.6 % (0.1-2.0); Eosinophils # 0.1 K/mm3 (0.0-0.4); Eosinophils % 1.1 % (0.1-12.0); Hematocrit 38.6 % (37.0-47.0); Hemoglobin 11.9 g/dL (12.2-16.2); Lymphocytes # 2.9 K/mm3 (0.7-4.5); Lymphocytes % 22.3 % (10-50); Mean Corpuscular HGB Conc 30.8 g/dL (31.8-35.4); Mean Corpuscular Hemoglobin 27.4 pg (27.0-31.2); Mean Corpuscular Volume 88.7 fl (81-99); Mean Platelet Volume 7.4 fl (7.4-10.4); Monocytes # 0.4 K/mm3 (0.1-1.0); Monocytes % 3.3 % (1.7-9.3); Neutrophils # 9.4 K/mm3 (1.8-7.8); Neutrophils % 72.7 % (37.0-80.0); Platelet Count 310 K/mm3 (142-424); Red Blood Count 4.35 M/mm3 (4.20-5.40); Red Cell Distribution Width 17.1 % (11.5-17.5)
[2024-02-21 10:30] LABS: Chloride 107 mmol/L (98-107)
[2024-02-21 10:31] LABS: Albumin Level 3.7 g/dl (3.5-5.0); Potassium 4.3 mmoL/L (3.5-5.1); Sodium 141 mmol/L (136-145)
[2024-02-21 10:33] LABS: Alanine Aminotransferase 14 U/L (12-78); Anion Gap 8.3 mEq/L (5-15); Aspartate Amino Transferase 17 U/L (14-36); Blood Urea Nitrogen 16 mg/dl (7-17); Carbon Dioxide 30 mmol/L (22.0-30.0); Estimated Glomerular Filt Rate 87 ml/min (>60); GFR (African American) 106 ML/MIN (>60)
[2024-02-21 10:34] LABS: Albumin/Globulin Ratio 1.4 (1.1-1.8); Alkaline Phosphatase 79 U/L (38-126); Bilirubin,Total 0.5 mg/dl (0.2-1.3); Calcium 8.6 mg/dl (8.4-10.2); Globulin 2.7 g/dL (1.3-3.2); Glucose 95 mg/dl (74-100); Total Protein,Serum 6.4 g/dl (6.3-8.2)
[2024-02-21 10:52] LABS: HCG,Quantitative < 2 mIU/ml (0-5.42)
== END 2024-02-21 23:59 | disposition home or self-care (01) ==
LOC: LAB 08:35
PROVIDERS: PCP Internal Medicine; Visit Provider Nurse Practitioner Obstetrics & Gynecology
DX: N95.0 Postmenopausal bleeding (principal)
CPT/HCPCS: 36415; 80053; 84702; 85025

== ENCOUNTER 2024-02-23 08:37 | Day surgery (SDC) | payer OTHER, SELFPAY ==
[2024-02-20 12:36] VITALS: BMI 53.7
--- NOTE | 2024-02-22 11:10 | SUR.PREOP ---
Left message with Carolina at Dr. Bernardo's office about Abnormal lab, WBC 13.0
[2024-02-23] VITALS (10 sets, daily range): BP systolic 122–147; BP diastolic 48–79; PULSE 63–85; RESP 12–18; TEMP 36.3–36.5; O2SAT 92–95
[2024-02-23] MEDS: LACTATED RINGERS 1000ML 1,000 ML 25 ML IV (08:56)
--- NOTE | 2024-02-23 08:57 | ECG_ITS ---
APPROVED REPORT Exam: Resting ECG HR:74 bpm ECG Measurements Heart Rate 74 AXES KS 176 P 37 QRSd 97 QRS -12 QT 363 T 44 QTc 390 Conclusion SINUS RHYTHM Borderline LAD O/w NORMAL ECG UNCONFIRMED REPORT Electronically signed by : Darwin Montana MD 02/25/2024 08:48:46
--- NOTE | 2024-02-23 09:11 | EXP.ANES.CKL ---
[facility] [place] Disclaimer: The information contained in this section may have been updated after the patient was seen, as this information can be updated by other users. Medical History (Updated 02/23/24 @ 09:01 by Salinas Pepe RN) PCOS (polycystic ovarian syndrome) Encounter for pre-operative cardiovascular clearance Anemia Shoulder pain, bilateral Morbid obesity CKD (chronic kidney disease), stage II Hypertension Arthritis Hyperkalemia Implantable loop recorder present Edema Dyspnea Primary osteoarthritis of right knee Chronic pain of right knee Aftercare following left knee joint replacement surgery Afib Bilateral knee pain Primary osteoarthritis of knees, bilateral Morbid obesity with BMI of 50.0-59.9, adult Surgical History History of endometrial ablation Status post left knee replacement History of H/O arthroscopic knee surgery H/O tubal ligation H/O adenoidectomy History of tonsillectomy Hx of cholecystectomy Family History Other Family history of hypertension No significant family history Social History Smoking Status: Former smoker alcohol intake: current alcohol intake frequency: holidays/special occasions only substance use type: denies use current occupational status: employed Travel in the last 8 weeks: None household members: spouse housing: house current occupational exposures/hazards: No caffeine: Yes [facility] Anesthesia Checklist Patient Identification Patient Identification: Arm Band and Verbal (Name & ) Structural Data Admitted From: Home Planned Operative Procedure/s: hysteroscopy, D&C, myosure Consent for Planned Operative Procedure(s) Verified: Yes Verified Documents: Surgical Consent and History and Physical NPO Status Verified Time NPO: 07:30 Chart Verification Results Verified: CBC, BMP, ECG and Chest Xray Additional verifications Fingerstick Blood Glucose: 112 Patient : No Anesthesia Reactions: No Hx Blood Transfusions: No Blood Transfusion Reaction: No Cardiovascular Assessment Heart Sounds: S1 & S2 Pulse Rhythm: Irregular Peripheral Edema: No Airway Assessment Mallampati Score:: Class II C-Spine Mobility Assessed: Yes (FROM) TMJ Mobility Assessed: Yes Dentition: Poor Dentition (nothing loose per pt.) Neurological Assessment Level of Consciousness: Awake, Alert, Appropriate and Follows Commands Hx Seizures: No Numbness or tingling in extremities: No Anesthesia Plan Anesthesia Risk discussed: Yes Anesthesia Plan: Verified ASA Class: III Anesthesia Type: General
[2024-02-23] MEDS: CLINDAMYCIN PHOSPHATE/D5W 900 MG/50 ML PIGGYBACK 100 MG IV (09:28)
--- NOTE | 2024-02-23 10:12 | P.OP_ITS ---
Date of procedure: 02/23/24 Pre-op Diagnosis:: Cervical mass Post-op Diagnosis:: Likely collection of cervical nabothian cysts Procedure performed:: Hysteroscopy Surgeon:: Colton Bernardo MD CONCRETE POINTER:: Fina Walters Anesthesia: LMA Estimated blood loss (mL): 5 Clinical Note:: She is a 53-year-old lady who had some postmenopausal bleeding. She had a previous endometrial ablation. An ultrasound showed that she had a possible mass within the cervix. Recent Pap smear with deep endocervical sampling was negative for carcinoma. Operative findings:: I was not able to dilate the cervix enough to get into the endometrium likely secondary to scar tissue as result of her ablation. I was able to examine the entire cervical canal to a depth of approximately 4 cm. The only thing that were seen were some posterior nabothian cysts. They appeared completely benign. Operative note:: She was taken the operating room where LMA anesthesia found the adequate. She was prepped and draped in normal sterile fashion lithotomy position. Weighted speculum was placed in the vagina and the anterior lip of the cervix was grasped with a tenaculum. Using dilators I dilated the cervix to approximately 4 mm. I attempted to get into the uterine cavity with Porter dilators but this was unsuccessful. I elected to just examined the cervical canal with the hysteroscope. The hysteroscope was inserted into the cervical canal and the findings were as previously dictated. I could not get beyond approximately 4 cm in the cervical canal. As result of that I elected not to proceed any further. Photographs were taken. There was no evidence of any abnormalities. She tolerated seizure well and was taken to recovery next condition. All sponge and instrument counts were correct. The estimated blood loss was less than 5 cc. Condition: stable Disposition: PACU Specimens:: None Complications:: None
--- NOTE | 2024-02-23 10:13 | EXP.ANES.I ---
[facility] Anesthesia Record Part I Anesthesia Record I Intake, IV Amount: 500 Hydration: Adequate Estimated blood loss (mL): 5 Urine output (mL): 0 Blood Pressure: 131/48 SaO2: 95 Pulse Rate: 85 Airway Patency: Patent Respiratory Rate: 12 Temperature: 97.4 F Patient is:: Drowsy Stable to PACU at:: 10:08
[2024-02-24 06:37] LABS: POC Glucose,Bedside 112 (70-110)
[2024-02-27 06:00] VITALS: BP 140/72; PULSE 79; RESP 16; TEMP 36.5; O2SAT 94
--- NOTE | 2024-02-27 06:00 | P.PNANES_ITS ---
[facility] Anesthesia Record Part II Anesthesia Record Part II Discharge Time: 10:38 Destination: Surgical Day Care (OP Surgery) PACU nurse assessment reviewed?: Yes Patient Condition:: Good Anesthesia Complications:: None Swallowing reflex intact?: Yes Airway Patency: Patent Cyanosis?: No Blood Pressure: 140/72 SaO2: 94 Respiratory Rate: 16 Pulse Rate: 79 Temperature: 97.7 F Mental Status: Alert & Oriented Pain level:: 0 Nausea and/or vomitting:: None Intake, IV Amount: 0 Hydration: Adequate
== END 2024-02-23 11:09 | disposition home or self-care (01) ==
PROVIDERS: PCP Internal Medicine; Visit Provider Nurse Practitioner Obstetrics & Gynecology
PROC: (CPT 58555; principal; 2024-02-23 10:15)
DX: N88.8 Other specified noninflammatory disorders of cervix uteri (principal); N93.9 Abnormal uterine and vaginal bleeding, unspecified
CPT/HCPCS: 58555; 82962; 93005; J1100; J1885; J2250; J2405; J3010; J7120

== ENCOUNTER 2024-02-29 10:59 | Outpatient (POV) | payer OTHER, SELFPAY ==
[2024-02-29 11:20] VITALS: BP 151/77; PULSE 58; RESP 16; O2SAT 98; BMI 51.5
--- NOTE | 2024-02-29 11:55 | EXP.PAIN.SOA ---
[facility] Disclaimer: The information contained in this section may have been updated after the patient was seen, as this information can be updated by other users. Medical History (Updated 02/23/24 @ 09:01 by Salinas Pepe RN) PCOS (polycystic ovarian syndrome) Encounter for pre-operative cardiovascular clearance Anemia Shoulder pain, bilateral Morbid obesity CKD (chronic kidney disease), stage II Hypertension Arthritis Hyperkalemia Implantable loop recorder present Edema Dyspnea Primary osteoarthritis of right knee Chronic pain of right knee Aftercare following left knee joint replacement surgery Afib Bilateral knee pain Primary osteoarthritis of knees, bilateral Morbid obesity with BMI of 50.0-59.9, adult Surgical History History of endometrial ablation Status post left knee replacement History of H/O arthroscopic knee surgery H/O tubal ligation H/O adenoidectomy History of tonsillectomy Hx of cholecystectomy Family History Other Family history of hypertension No significant family history Social History Smoking Status: Former smoker alcohol intake: current alcohol intake frequency: holidays/special occasions only substance use type: denies use current occupational status: employed Travel in the last 8 weeks: None household members: spouse housing: house current occupational exposures/hazards: No caffeine: Yes PM Subjective & Objective Subjective Subjective:: Patient is a pleasant 54-year-old female who presents today for follow-up of lumbar medial branch block bilaterally L3-L4 and L4-L5 on 02/14/2024. Today she rates her pain a 5 out of 10. Patient does state that the injections did significantly improve her overall back pain with at least 75 to 80% improvement. She states that she does feel like it is still helping currently. Patient is in physical therapy currently and states that she is having some pain in and around her hips however feels like this is more related to working muscles that she is not used to using. Patient does state that it is manageable. Patient did get the compounded cream however she states that she did not notice significant relief necessarily. Her Willi has been reviewed and is appropriate. Review of Systems: General: No recent weight changes, no fever, no sleep disturbances Respiratory: No cough, no shortness of air, no recurring pulmonary infections Cardiovascular/peripheral vascular: No chest pain, no palpitations, no edema, no shortness of breath Gastrointestinal: No new onset incontinence, normal bowel movements reported Genitourinary: No new onset incontinence Musculoskeletal: Low back pain Psychiatric: [Normal mood/affect] Neurological: [Denies weakness in extremities], [denies balance issues] Pain at rest (0-10 scale): 5 Objective Objective:: Physical Exam: General: Alert and oriented x3, no acute distress, pleasant and cooperative Lungs: Respirations even and unlabored, symmetrical chest expansion Eyes: PERRL Musculoskeletal: Flexion and extension of lumbar [spine] somewhat guarded secondary to pain, [antalgic gait noted] Neurological: Speech clear, no gross sensory deficit Has patient had previous pain injection?: Yes Percent improvement in pain since last injection: 80% Conservative treatment options previously tried: Home exercise plan Length of treatment: Longer than 6 weeks Meds Home Medications and Allergies Home Medications ?Medication ?Instructions ?Recorded ?Confirmed ?Type aspirin 81 mg tablet,delayed 81 mg PO DAILY heart health 11/10/21 02/29/24 History release (Adult Aspirin Regimen) biotin 10,000 mcg capsule 10,000 mcg PO DAILY Supplement 09/24/22 02/29/24 History metformin 500 mg tablet 500 mg PO BID Diabetes 10/21/22 02/29/24 History omeprazole 20 mg capsule,delayed See Rx Instructions .Route 07/25/23 02/29/24 Rx release .COMPLEX #90 caps atorvastatin 10 mg tablet 10 mg PO DAILY #30 tabs 10/31/23 02/29/24 Rx venlafaxine 75 mg tablet See Rx Instructions .Route 01/23/24 02/29/24 Rx .COMPLEX #90 tabs losartan 100 mg tablet See Rx Instructions .Route 02/06/24 02/29/24 Rx .COMPLEX #90 tabs acetaminophen 500 mg capsule 1,200 mg PO DAILY 02/20/24 02/29/24 History ascorbic acid (vitamin C) 1,000 mg 1 g PO DAILY 02/20/24 02/29/24 History tablet (Vitamin C) ferrous sulfate 142 mg (45 mg 142 mg PO DAILY 02/20/24 02/29/24 History iron) tablet,extended release ibuprofen 800 mg tablet 800 mg PO DAILY 02/20/24 02/29/24 History carvedilol 25 mg tablet 37.5 mg PO BID High Blood Pressure 02/23/24 02/29/24 History buspirone 15 mg tablet See Rx Instructions .Route 02/27/24 02/29/24 Rx .COMPLEX #60 tabs New Prescriptions to Start Prescriptions: Allergies Allergy/AdvReac Type Severity Reaction Status Date / Time diphenhydramine Allergy Intermediate CRAZY Verified 02/23/24 08:57 [DIPHENHYDRAMINE] promethazine [From PHENERGAN] Allergy Intermediate CRAZY Verified 02/23/24 08:57 temazepam [TEMAZEPAM] Allergy Intermediate CRAZY Verified 02/23/24 08:57 cefaclor [From Ceclor] Allergy Verified 02/23/24 08:57 Assessment and Plan *Assessment and plan (1) Lumbar facet arthropathy: Status: Acute Category: Medical Code(s): M47.816 - Spondylosis without myelopathy or radiculopathy, lumbar region Plan Patient has had significant improvement and does not require any additional injection therapy at this time. Patient will return to clinic in 1 month for reevaluation of symptoms and plan of care. Patient has been instructed to contact the clinic with any concerns before the next appointment. Dr. Hagen has reviewed this note and agrees with this plan of care. This note was dictated using voice recognition software and make contain errors or omissions. All injections are used with Lidocaine or Bupivacaine and Depo Medrol.
== END 2024-02-29 23:59 | disposition home or self-care (01) ==
LOC: SC.PAIN 10:59
PROVIDERS: PCP Internal Medicine; Visit Provider Nurse Practitioner Family
DX: M47.816 Spondylosis without myelopathy or radiculopathy, lumbar region (principal); Z95.811 Presence of heart assist device; Z87.891 Personal history of nicotine dependence; Z96.652 Presence of left artificial knee joint; Z79.899 Other long term (current) drug therapy
CPT/HCPCS: 99212; G0463

== ENCOUNTER 2024-03-29 10:47 | Outpatient (POV) | payer OTHER, SELFPAY ==
[2024-03-29 11:08] VITALS: BP 151/89; PULSE 88; RESP 16; O2SAT 92; BMI 53.2
--- NOTE | 2024-03-29 11:23 | A.OFFVIS_ITS ---
[facility] Disclaimer: The information contained in this section may have been updated after the patient was seen, as this information can be updated by other users. Medical History (Updated 03/29/24 @ 11:26 by Juhi Yan APRN) PCOS (polycystic ovarian syndrome) Encounter for pre-operative cardiovascular clearance Anemia Shoulder pain, bilateral Morbid obesity CKD (chronic kidney disease), stage II Hypertension Arthritis Hyperkalemia Implantable loop recorder present Edema Dyspnea Primary osteoarthritis of right knee Chronic pain of right knee Aftercare following left knee joint replacement surgery Afib Bilateral knee pain Primary osteoarthritis of knees, bilateral Morbid obesity with BMI of 50.0-59.9, adult Surgical History (Updated 03/26/24 @ 15:28 by DIGNA Arizmendi) History of hysteroscopy History of endometrial ablation Status post left knee replacement History of H/O arthroscopic knee surgery H/O tubal ligation H/O adenoidectomy History of tonsillectomy Hx of cholecystectomy Family History Other Family history of hypertension No significant family history Social History Smoking Status: Former smoker alcohol intake: current alcohol intake frequency: holidays/special occasions only substance use type: denies use current occupational status: other Travel in the last 8 weeks: None household members: spouse housing: house current occupational exposures/hazards: No caffeine: Yes PM Subjective & Objective Subjective Subjective:: Patient is a pleasant 54-year-old female who presents today for 1 month follow- up. Today she rates her pain a 4 out of 10 however states the pain will go up as the day goes on. Patient states the pain is all in her middle of her back. She states this is a constant aching, throbbing that is worse with increased activity or ambulation. Patient states that it feels right around the midline area and does have radiating symptoms and tenderness into bilateral sides going towards her abdomen. Patient does state the pain interferes with her ability perform activities of daily living such as cooking and cleaning. Patient does state that she has continued to have good relief in her low back and that this is maintaining from her last injection of a lumbar medial branch block L3-L4 and L4-L5 on 813. Patient has been tried on compounded cream however only got minimal relief. Her Willi has been reviewed and is appropriate. Review of Systems: General: No recent weight changes, no fever, no sleep disturbances Respiratory: No cough, no shortness of air, no recurring pulmonary infections Cardiovascular/peripheral vascular: No chest pain, no palpitations, no edema, no shortness of breath Gastrointestinal: No new onset incontinence, normal bowel movements reported Genitourinary: No new onset incontinence Musculoskeletal: Mid back pain Psychiatric: [Normal mood/affect] Neurological: [Denies weakness in extremities], [denies balance issues] Pain at rest (0-10 scale): 5 Objective Objective:: Physical Exam: General: Alert and oriented x3, no acute distress, pleasant and cooperative Lungs: Respirations even and unlabored, symmetrical chest expansion Eyes: PERRL Musculoskeletal: Flexion and extension of thoracic [spine] somewhat guarded secondary to pain, [antalgic gait noted] tenderness around thoracic paraspinous muscles bilaterally and point tenderness at midline thoracic spine approximately T12 Neurological: Speech clear, no gross sensory deficit Has patient had previous pain injection?: No Conservative treatment options previously tried: Home exercise plan Length of treatment: Longer than 12 weeks Meds Home Medications and Allergies Home Medications ?Medication ?Instructions ?Recorded ?Confirmed ?Type aspirin 81 mg tablet,delayed 81 mg PO DAILY heart health 11/10/21 03/29/24 History release (Adult Aspirin Regimen) biotin 10,000 mcg capsule 10,000 mcg PO DAILY Supplement 09/24/22 03/29/24 History metformin 500 mg tablet 500 mg PO BID Diabetes 10/21/22 03/29/24 History omeprazole 20 mg capsule,delayed See Rx Instructions .Route 07/25/23 03/29/24 Rx release .COMPLEX #90 caps venlafaxine 75 mg tablet See Rx Instructions .Route 01/23/24 03/29/24 Rx .COMPLEX #90 tabs losartan 100 mg tablet See Rx Instructions .Route 02/06/24 03/29/24 Rx .COMPLEX #90 tabs acetaminophen 500 mg capsule 1,200 mg PO DAILY 02/20/24 03/29/24 History ascorbic acid (vitamin C) 1,000 mg 1 g PO DAILY 02/20/24 03/29/24 History tablet (Vitamin C) ferrous sulfate 142 mg (45 mg 142 mg PO DAILY 02/20/24 03/29/24 History iron) tablet,extended release ibuprofen 800 mg tablet 800 mg PO DAILY 02/20/24 03/29/24 History carvedilol 25 mg tablet 37.5 mg PO BID High Blood Pressure 02/23/24 03/29/24 History buspirone 15 mg tablet See Rx Instructions .Route 02/27/24 03/29/24 Rx .COMPLEX #60 tabs atorvastatin 10 mg tablet See Rx Instructions .Route 03/19/24 03/29/24 Rx .COMPLEX #30 tabs spironolactone 25 mg tablet 25 mg PO DAILY 03/26/24 03/29/24 History ondansetron 8 mg disintegrating 8 mg PO Q12H #60 tabs 03/27/24 03/29/24 Rx tablet New Prescriptions to Start Prescriptions: Allergies Allergy/AdvReac Type Severity Reaction Status Date / Time diphenhydramine Allergy Intermediate CRAZY Verified 03/26/24 15:24 [DIPHENHYDRAMINE] promethazine [From PHENERGAN] Allergy Intermediate CRAZY Verified 03/26/24 15:24 temazepam [TEMAZEPAM] Allergy Intermediate CRAZY Verified 03/26/24 15:24 cefaclor [From Ceclor] Allergy Verified 03/26/24 15:24 Assessment and Plan *Assessment and plan (1) Mid back pain: Status: Acute Category: Medical Code(s): M54.9 - Dorsalgia, unspecified (2) Thoracic radiculopathy: Status: Acute Category: Medical Code(s): M54.14 - Radiculopathy, thoracic region (3) Myofascial pain: Status: Acute Category: Medical Code(s): M79.18 - Myalgia, other site Plan I did discuss with the patient due to her limited range of motion of her thoracic spine that she may benefit from a thoracic epidural steroid injection as well as possible trigger points in future. Risk and benefits were discussed with patient and she would like to proceed forward with this plan of care. Patient has tried and failed conservative treatment including continued at home stretching exercise for longer than 12 weeks. We will schedule the patient for a thoracic epidural steroid injection T11-T12 under fluoroscopy. I will also send in a 2-week dose of baclofen twice daily as needed. Patient agrees with this plan of care. Patient has been instructed to contact the clinic with any concerns before the next appointment. Dr. Hagen has reviewed this note and agrees with this plan of care. This note was dictated using voice recognition software and make contain errors or omissions. All injections are used with Lidocaine or Bupivacaine and Depo Medrol.
== END 2024-03-29 23:59 | disposition home or self-care (01) ==
PROVIDERS: PCP Internal Medicine; Visit Provider Nurse Practitioner Family
DX: M54.9 Dorsalgia, unspecified (principal); M54.14 Radiculopathy, thoracic region; M79.18 Myalgia, other site; Z95.811 Presence of heart assist device; Z96.652 Presence of left artificial knee joint; E66.01 Morbid (severe) obesity due to excess calories; Z68.43 Body mass index [BMI] 50.0-59.9, adult; Z87.891 Personal history of nicotine dependence; Z73.89 Other problems related to life management difficulty; Z79.899 Other long term (current) drug therapy
CPT/HCPCS: 99212; G0463

== ENCOUNTER 2024-04-03 15:48 | Outpatient (CLI) | payer OTHER, SELFPAY ==
--- NOTE | 2024-04-03 15:48 | MM_ITS ---
PROCEDURE INFORMATION: Exam: MG Bilateral Screening 3D Mammography Exam date and time: 04/03/2024 3:33 PM Age: 54 years old Clinical indication: Screening examination. TECHNIQUE: Imaging protocol: Bilateral Screening tomosynthesis and 2D mammography including computer-aided detection (CAD) when performed. COMPARISON: 1. MG MM DIG SCREENING MAMM BI W/CAD 04/04/2019 8:56 AM 2. MG DMSB DIG MAMM-SCREEN [place] 06/16/2015 3:19 PM FINDINGS: MAMMOGRAPHY: Breast composition: The breasts are almost entirely fatty. Mass: None. Architectural distortion: None. Calcifications: No suspicious calcifications. Asymmetric density: None. Skin thickening: None. Axillary adenopathy: None. Other findings: Loop recorder device projects over the upper inner quadrant of the left breast and obscures underlying breast tissue. IMPRESSION: No mammographic evidence of malignancy. Annual screening is recommended unless otherwise clinically indicated. ASSESSMENT: BI-RADS Category 1: Negative.
== END 2024-04-03 23:59 | disposition home or self-care (01) ==
LOC: RAD 15:48
PROVIDERS: PCP Internal Medicine; Visit Provider Nurse Practitioner Obstetrics & Gynecology
DX: Z12.31 Encounter for screening mammogram for malignant neoplasm of breast (principal)
CPT/HCPCS: 77063; 77067

== ENCOUNTER 2024-04-17 09:07 | Outpatient (CLI) | payer OTHER, SELFPAY ==
[2024-04-17 09:36] LABS: Basophils # 0.1 K/mm3 (0-0.2); Basophils % 0.9 % (0.1-2.0); Eosinophils # 0.2 K/mm3 (0.0-0.4); Hematocrit 37.8 % (37.0-47.0); Hemoglobin 12.2 g/dL (12.2-16.2); Lymphocytes # 2.3 K/mm3 (0.7-4.5); Lymphocytes % 22.9 % (10-50); Mean Corpuscular HGB Conc 32.3 g/dL (31.8-35.4); Mean Corpuscular Hemoglobin 27.8 pg (27.0-31.2); Mean Platelet Volume 7.1 fl (7.4-10.4); Monocytes # 0.4 K/mm3 (0.1-1.0); Monocytes % 4.2 % (1.7-9.3); Neutrophils # 6.9 K/mm3 (1.8-7.8); Platelet Count 291 K/mm3 (142-424); Red Blood Count 4.39 M/mm3 (4.20-5.40); White Blood Count 9.8 K/mm3 (4.8-10.8)
[2024-04-17 09:48] LABS: Albumin Level 3.9 g/dl (3.5-5.0); Chloride 108 mmol/L (98-107); Potassium 4.9 mmoL/L (3.5-5.1); Sodium 142 mmol/L (136-145)
[2024-04-17 09:51] LABS: Alanine Aminotransferase 16 U/L (12-78); Albumin/Globulin Ratio 1.3 (1.1-1.8); Alkaline Phosphatase 79 U/L (38-126); Anion Gap 10.9 mEq/L (5-15); Aspartate Amino Transferase 19 U/L (14-36); Bilirubin,Total 0.6 mg/dl (0.2-1.3); Blood Urea Nitrogen 16 mg/dl (7-17); Carbon Dioxide 28 mmol/L (22.0-30.0); Estimated Glomerular Filt Rate 74 ml/min (>60); GFR (African American) 90 ML/MIN (>60); Iron 57 ug/dL (37-170); Total Protein,Serum 6.9 g/dl (6.3-8.2)
[2024-04-17 09:52] LABS: Calcium 9.5 mg/dl (8.4-10.2); Glucose 133 mg/dl (74-100)
[2024-04-17 10:01] LABS: Total Iron Binding Capacity 329 ug/dL (265-497)
[2024-04-17 10:27] LABS: Ferritin 30.7 ng/ml (11.1-264)
== END 2024-04-17 23:59 | disposition home or self-care (01) ==
LOC: LAB 09:08
PROVIDERS: PCP Internal Medicine; Visit Provider Internal Medicine Medical Oncology
DX: D50.9 Iron deficiency anemia, unspecified (principal)
CPT/HCPCS: 36415; 80053; 82728; 83540; 83550; 85025

== ENCOUNTER 2024-04-24 09:06 | Day surgery (SDC) | payer OTHER, SELFPAY ==
[2024-04-24 09:24] VITALS: BP 116/74; BP 133/75; PULSE 68; PULSE 75; RESP 16; RESP 18; RESP 20; TEMP 36.3; O2SAT 95; O2SAT 97; BMI 53.6
[2024-04-24] MEDS: methylPREDNISolone ACETATE 80MG/ML VIAL 80 MG (09:29)
[2024-04-24] MEDS: IOPAMIDOL-200 (41%);10ML VIAL 10 ML IV (09:38)
[2024-04-24 09:40] VITALS: BP 149/85; PULSE 64; RESP 16; O2SAT 94
--- NOTE | 2024-04-24 09:40 | EXP.PAIN.PRO ---
Procedure Date: 04/24/24 Time: 09:30 Anesthesiologist:: Lalo Barnes CRNA Complications:: None Pre-procedure Diagnosis:: Degenerative disc thoracic spine. Degenerative disc lumbar spine. Thoracolumbar radiculopathy. Post-procedure Diagnosis:: Same. Indications for Procedure:: Patient is a pleasant 54-year-old female who comes our clinic today for thoracic epidural steroid injection at the T11-12 level. Patient describes pain as constant, dull, aching. Patient also reports radicular symptoms around the bilateral thoracic area. Pain also in the lumbar spine. She rates her pain 7/10. Procedure Details:: Procedure:Thoracic epidural steroid injection under fluoroscopy Informed consent was obtained and the risks and benefits of the procedure were explained to the patient. The patient was taken to the procedure room and noninvasive monitors placed, including noninvasive blood pressure cuff and pulse oximeter. The back was viewed using C-Arm fluoroscopy and prepped using Betadine as a cleansing solution and the T11-12 interspace was palpated. Skin and subcutaneous tissues were anesthetized using lidocaine 1.5% and a 25-gauge needle. After this, an 18-gauge Touhy epidural needle was placed into the T11-12 interspace and advanced using fluoroscopic guidance and loss of resistance to air until the epidural space was encountered. After confirmation of needle placement in the epidural space, with dye, a solution containing lidocaine 1.5%, 4 mL and Depo-Medrol 80 mg were incrementally injected into the thoracic epidural space. The patient tolerated the procedure well with no complications. The patient was observed in the Pain Clinic and then discharged home neurologically intact. Plan and Disposition:: Patient was discharged without incident.
== END 2024-04-24 09:40 | disposition home or self-care (01) ==
PROVIDERS: PCP Internal Medicine; Visit Provider Nurse Anesthetist, Certified Registered
DX: M51.34 Other intervertebral disc degeneration, thoracic region (principal); M51.369 Other intervertebral disc degeneration, lumbar region without mention of lumbar back pain or lower extremity pain; M54.15 Radiculopathy, thoracolumbar region
CPT/HCPCS: 62321; J1010; Q9966

== ENCOUNTER 2024-05-10 10:59 | Outpatient (POV) | payer OTHER, SELFPAY ==
[2024-05-10 11:17] VITALS: BP 137/82; PULSE 61; RESP 16; O2SAT 97; BMI 52.4
--- NOTE | 2024-05-10 11:30 | EXP.PAIN.SOA ---
[facility] Disclaimer: The information contained in this section may have been updated after the patient was seen, as this information can be updated by other users. Medical History PCOS (polycystic ovarian syndrome) Encounter for pre-operative cardiovascular clearance Anemia Shoulder pain, bilateral X-rays of the shoulders bilaterally did reveal degenerative change. I will discuss potential of injections with her when I see her back. Additionally we could consider MRI or sending her to orthopedics. Both of these are options. I think we could try injections if this does not work I would send her to therapeutics. Morbid obesity CKD (chronic kidney disease), stage II Patient comes with this diagnosis however GFR has been 75-104 over the last 3 visits. I do not see any reason to continue with this diagnosis in this patient although we will be checking kidney function in the future. Hypertension Arthritis Hyperkalemia Implantable loop recorder present Edema Dyspnea Primary osteoarthritis of right knee Chronic pain of right knee Aftercare following left knee joint replacement surgery Afib Bilateral knee pain Primary osteoarthritis of knees, bilateral Morbid obesity with BMI of 50.0-59.9, adult Complicates all aspects of care Surgical History History of hysteroscopy History of endometrial ablation Status post left knee replacement History of H/O arthroscopic knee surgery H/O tubal ligation H/O adenoidectomy History of tonsillectomy Hx of cholecystectomy Family History Other Family history of hypertension No significant family history Social History Smoking Status: Former smoker alcohol intake: current alcohol intake frequency: holidays/special occasions only substance use type: denies use current occupational status: other Travel in the last 8 weeks: None household members: spouse housing: house current occupational exposures/hazards: No caffeine: Yes PM Subjective & Objective Subjective Subjective:: Patient does present today for follow-up of the thoracic epidural T11-T12 on 04/24/2024. Today she rates her pain a 6 out of 10. Patient states that she did not notice any additional improvement following this injection. She states she still has the severe mid back pain that just feels like it is deeper and into her spine. She states the pain is constant and does interfere with her ability perform activities of daily living such as cooking and cleaning. She denies any new falls. Patient does present today with some bruising on her face however states that she had some dental implants. She denies any other changes. Patient does state that the baclofen we sent and did significantly help when she does take it. She states she only does it as needed. She is currently managed with baclofen 5 mg 3 times daily. She denies any side effects. Her Willi has been reviewed and is appropriate. Review of Systems: General: No recent weight changes, no fever, no sleep disturbances Respiratory: No cough, no shortness of air, no recurring pulmonary infections Cardiovascular/peripheral vascular: No chest pain, no palpitations, no edema, no shortness of breath Gastrointestinal: No new onset incontinence, normal bowel movements reported Genitourinary: No new onset incontinence Musculoskeletal: Mid back pain Psychiatric: [Normal mood/affect] Neurological: [Denies weakness in extremities], [denies balance issues] Pain at rest (0-10 scale): 6 Objective Objective:: Physical Exam: General: Alert and oriented x3, no acute distress, pleasant and cooperative Lungs: Respirations even and unlabored, symmetrical chest expansion Eyes: PERRL Musculoskeletal: Flexion and extension of thoracic [spine] somewhat guarded secondary to pain, [antalgic gait noted] Neurological: Speech clear, no gross sensory deficit Has patient had previous pain injection?: Yes Percent improvement in pain since last injection: Minimal Conservative treatment options previously tried: Home exercise plan Length of treatment: Longer than 12 weeks Meds Home Medications and Allergies Home Medications ?Medication ?Instructions ?Recorded ?Confirmed ?Type aspirin 81 mg tablet,delayed 81 mg PO DAILY [facility] 11/10/21 05/10/24 History release (Adult Aspirin Regimen) biotin 10,000 mcg capsule 10,000 mcg PO DAILY Supplement 09/24/22 05/10/24 History metformin 500 mg tablet 500 mg PO BID Diabetes 10/21/22 05/10/24 History omeprazole 20 mg capsule,delayed See Rx Instructions .Route 07/25/23 05/10/24 Rx release .COMPLEX #90 caps venlafaxine 75 mg tablet See Rx Instructions .Route 01/23/24 05/10/24 Rx .COMPLEX #90 tabs losartan 100 mg tablet See Rx Instructions .Route 02/06/24 05/10/24 Rx .COMPLEX #90 tabs acetaminophen 500 mg capsule 1,200 mg PO DAILY 02/20/24 05/10/24 History ascorbic acid (vitamin C) 1,000 mg 1 g PO DAILY 02/20/24 05/10/24 History tablet (Vitamin C) ferrous sulfate 142 mg (45 mg 142 mg PO DAILY 02/20/24 05/10/24 History iron) tablet,extended release ibuprofen 800 mg tablet 800 mg PO DAILY 02/20/24 05/10/24 History carvedilol 25 mg tablet 37.5 mg PO BID High Blood Pressure 02/23/24 05/10/24 History buspirone 15 mg tablet See Rx Instructions .Route 02/27/24 05/10/24 Rx .COMPLEX #60 tabs atorvastatin 10 mg tablet See Rx Instructions .Route 03/19/24 05/10/24 Rx .COMPLEX #30 tabs spironolactone 25 mg tablet 25 mg PO DAILY 03/26/24 05/10/24 History ondansetron 8 mg disintegrating 8 mg PO Q12H #60 tabs 03/27/24 05/10/24 Rx tablet baclofen 5 mg tablet 5 mg PO TID #42 tabs 03/29/24 05/10/24 Rx New Prescriptions to Start Prescriptions: Allergies Allergy/AdvReac Type Severity Reaction Status Date / Time diphenhydramine Allergy Intermediate CRAZY Verified 04/17/24 13:19 [DIPHENHYDRAMINE] promethazine [From PHENERGAN] Allergy Intermediate CRAZY Verified 04/17/24 13:19 temazepam [TEMAZEPAM] Allergy Intermediate CRAZY Verified 04/17/24 13:19 cefaclor [From Ceclor] Allergy Verified 04/17/24 13:19 Assessment and Plan *Assessment and plan (1) Thoracic radiculopathy: Status: Acute Category: Medical Code(s): M54.14 - Radiculopathy, thoracic region (2) Mid back pain: Status: Acute Category: Medical Code(s): M54.9 - Dorsalgia, unspecified Plan Due to the patient's continued mid back pain with no improvement with this epidural I have discussed with the patient that I will order x-ray imaging. I will also order MRI without contrast of her thoracic spine to follow. Patient agrees with this plan of care. I will send in a 90-day supply of the baclofen. Patient will return to clinic in 1 month following her imaging for reevaluation of symptoms and plan of care. Patient has been instructed to contact the clinic with any concerns before the next appointment. Dr. Hagen has reviewed this note and agrees with this plan of care. This note was dictated using voice recognition software and make contain errors or omissions. All injections are used with Lidocaine or Bupivacaine and Depo Medrol.
== END 2024-05-10 23:59 | disposition home or self-care (01) ==
PROVIDERS: PCP Internal Medicine; Visit Provider Nurse Practitioner Family
DX: M54.14 Radiculopathy, thoracic region (principal); M54.9 Dorsalgia, unspecified; Z96.652 Presence of left artificial knee joint; Z87.891 Personal history of nicotine dependence; Z73.89 Other problems related to life management difficulty
CPT/HCPCS: 99212; G0463

== ENCOUNTER 2024-05-15 17:00 | Outpatient (RCR) | payer OTHER, SELFPAY ==
--- NOTE | 2024-02-20 17:04 | HMH.PTOPEV ---
PT Outpatient Evaluation Rehab PT Outpatient Evaluation Start: 02/20/24 14:59 Freq: Status: Active Protocol: Document 02/20/24 14:59 CAMILLA (Rec: 02/20/24 17:04 CAMILLA [id number]) E-signed By Juhi Howard, PT Outpatient Therapy Subjective History Subjective History Pt is a 53 y/o female who reports insidious onset of central LBP in July, denies trauma or injury. Pt denies distal LE symptoms, numbness/ tingling or b/b dysfunction. Pt had a lumbar spine MRI on with impression of Multilevel degenerative changes. Pt reports she had her first round of bilateral medial branch block of L3-4, L4-5 performed at pain management on 02/14/24 which she states helped decrease intensity of pain but it is still there. Pt reports she returns to pain management on 02/29/24 for her next follow-up session. Pt reports overall pain is aggravated by prolonged standing and walking and improves with rest. Medical History: Anemia, morbid obesity, CKD stage II, hypertension, arthritis, hyperkalemia, edema, dyspnea, Afib, L TKA 09/23, R TKA 05/27 New diagnosis of cancer in past 12 No months? Chief Complaint Pain Symptom Type Ache,Dull Symptoms Relieved By Rest/Positioning,OTC Meds Symptoms Aggravated By Standing,Bending/Stooping, Physical Activity,Twisting Current Functional Limitations Housework,Standing,Walking Symptom Description Intermittent Level of pain today (0-10) 0 Pain scale - at its best (0-10) 0 Pain scale - at its worst (0-10) 9 Lumbopelvic Eval Palapation tenderness bilateral Lumbar/Sacral Palpation Findings Tenderness Lumbar/Sacral Palpation Overall Comment 2/4 TTP R>L thoracolumbar paraspinals Accessory Movement L-spine Vertebrae Accessory Movements Central P/A [place] that Elicit Symptoms L3 bilateral L4 bilateral L5 bilateral S1 bilateral Range of Motion Lumbar Spine Active Flexion Range of 55 Motion (degrees) Lumbar Spine Active Extension Range of 15 Motion (degrees) Left Lumbar Spine Lateral Flexion Active 10 Range of Motion (degrees) Right Lumbar Spine Lateral Flexion 10 Active Range of Motion (degrees) Manual Muscle Test Bilateral Knee Extension Strength Grade 5 Normal Knee Flexion Strength Grade 5 Normal Hip Flexion Strength Grade 4- Good- Hip Abduction Strength Grade 4 Good Hip Adduction Strength Grade 4 Good Hip Extension Strength Grade 4 Good Ankle Dorsiflexion Strength Grade 5 Normal Altered Sensation Comment equal and intact to light touch sensation Special Tests Hip Lalo (TERI) Test Negative Left,Negative Right Sciatic Nerve Tension Test Negative Left,Negative Right Unilateral Straight Leg Raise (Lasegue) Negative Left,Negative Right Test Oswestry Index Section 1 Pain Intensity The pain comes and goes and is severe Section 2 Personal Care (Washing,Dresing) increase the pain and I find it necessary to change my way of doing it Section 3 Lifting I can lift heavy weights without extra pain Section 4 Walking I cannot walk at all without increasing pain Section 5 Sitting I can sit in any chair for as long as I like Section 6 Standing I avoid standing because it increases the pain immediately Section 7 Sleeping I get no pain in bed Section 8 Social Life Pain has restricted my social life and I do not go out often Section 9 Traveling I get some pain when traveling , but none of my usual forms of travel m Section 10 Changing Degreee of Pain My pain is getting better Score and Risk Level Oswestry Sc 21 Oswestry Risk Level Moderate Disability Outpatient Therapy Assessment Impairments Problems/Impairmments Palpation Tenderness,Impaired Range of Motion,Impaired Strength,Impaired Walking, Impaired Standing,Impaired Shower/Bathing,Impaired Household Care,Subjective C/O Pain,Impaired Self Care/Self Management Prognosis Rehab Potential Good Clinical Impression Consistent with Diagnosis Yes Short Term Goals Number of Weeks 3 Decrease Subjective C/O Pain Yes: Improve pain at worst to 7/10 to improve overall QOL Improve Self Care/Self Management Yes Patient to be Ind w/ HEP Yes Long-Term Goals Number of Weeks 6 Decreased Palpation Tenderness Yes: 0-1/4 TTP of L2-L5 SP Increase Range of Motion Yes: Improve lumbar AROM flex to 70, ext to 20, LF to 15 Increase Strength Yes: Improve hip strength to 4 +/5 grossly to assist with function Improve Ability to Shower/Bathe Self Yes: report ability to stand for 10-15' w pain 5/10 or less to assist w bathing Improve Oswestry Score Yes: Improve score to 16 or less to improve overall QOL Decrease Subjective C/O Pain Yes: Improve pain at worst to 5/10 to improve overall QOL Outpatient Therapy Plan of Care Treatment Plan May Include Therapeutic Exercise Including Home Yes Exercise Program Manual Therapy Techniques Yes Neuromuscular Re-education Yes Therapeutic Activities to Return to Yes Previous Functional/Work Level ADL/Self Care Education Yes Mechanical Traction Yes Dry Needling Yes Thermal Modalities Yes Electrical Stimulation Yes Ultrasound/Phonophoresis Yes Iontophoresis Yes Massage Yes Eval/Re-Eval Yes Aquatic Therapy Yes Frequency Times per week 2 Duration Number of Weeks 4-6 Addendums This patient is a candidate for social No or vocational rehab? Patient/Guardian verbally acknowledges Yes understanding of treatment program and consents to further treatment? Patient/Guardian verbally acknowledges Yes understanding of diagnosis, prognosis and goals for treatment? Eval Complexity PT Charges 30404 - Moderate Complexity Shoulder/Elbow Eval Shoulder Objective Measurements Elbow Objective Measurements PHYSICIAN CERTIFICATION: I certify the specified therapy services for Pushpa Escamilla are required, authorized, and reviewed every 30 days.
--- NOTE | 2024-03-20 18:08 | HMH.RHREAS ---
Rehab Reassessment Rehab OP Re-assessment Start: 02/20/24 14:59 Freq: Status: Active Protocol: Document 03/20/24 17:00 CAMILLA (Rec: 03/20/24 18:08 CAMILLA [id number]) E-signed By Juhi Howard, PT Oswestry Index Section 1 Pain Intensity The pain comes and goes and is moderate Section 2 Personal Care (Washing,Dresing) increase the pain and I find it necessary to change my way of doing it Section 3 Lifting I can lift heavy weights without extra pain Section 4 Walking I cannot walk at all without increasing pain Section 5 Sitting I can sit in any chair for as long as I like Section 6 Standing I avoid standing because it increases the pain immediately Section 7 Sleeping I get pain in bed, but it does not prevent me from sleeping well Section 8 Social Life Pain has restricted my social life and I do not go out often Section 9 Traveling I get some pain when traveling , but none of my usual forms of travel m Section 10 Changing Degreee of Pain My pain is neither getting better or worse Score and Risk Level Oswestry Sc 23 Oswestry Risk Level Moderate Disability Rehab Re-assessment Subjective Subjective Pt reports she feels she has gained more mobility in her low back since starting PT; however, she continues to have centralized low back pain with standing and walking. Pt reports pain at worst as 8/10 on VAS with such activities. Pt reports pain abolishes with rest. Pt reports compliance with HEP and states she is to follow-up with pain management at the beginning of April. Objective Objective Notes Lumbar AROM flex 90, ext 20, LLF 12, RLF 10 B hip MMT: 4/ grossly Assessment Progress Assessment Slower Than Expected Assessment Notes Pt has attended 5 PT visits consisting of aerobic exercise , lumbar mobility, LE stretching, LE/core strengthening, and HEP with good tolerance. Pt demonstrated improved lumbar AROM and hip strength this date compared to the initial evaluation. Pt demonstrated slight regression in JENNA and continues to report severe low back pain with standing and walking that improves with rest. Overall, the pt would continue to benefit from skilled PT to further improve subjective report of pain, lumbar AROM, LE/core strength and functional activity tolerance to improve overall QOL. Patient goals met ST/3 Goals Not Met p! at worst, LTG Revised Goals n/a Plan Plan Continue initial POC Frequency of Therapy 2x/week Duration of therapy 4 more weeks Time and Billing Re-Eval Time 10 Re-Eval Billing Units 1 PHYSICIAN CERTIFICATION: I certify the specified therapy services for Pushpa Escamilla are required, authorized, and reviewed every 30 days.
--- NOTE | 2024-04-26 18:07 | HMH.RHREAS ---
Rehab Reassessment Rehab OP Re-assessment Start: 02/20/24 14:59 Freq: Status: Active Protocol: Document 04/26/24 16:49 CAMILLA (Rec: 04/26/24 18:07 RAQUELCLARITAKalpana [id number]) E-signed By uJhi Howard PT Oswestry Index Section 1 Pain Intensity The pain is severe and does not vary much Section 2 Personal Care (Washing,Dresing) increase the pain and I find it necessary to change my way of doing it Section 3 Lifting I can lift heavy weights without extra pain Section 4 Walking I cannot walk at all without increasing pain Section 5 Sitting I can sit in any chair for as long as I like Section 6 Standing I cannot stand more than 10 minutes without increasing pain Section 7 Sleeping I get no pain in bed Section 8 Social Life Pain has restricted my social life and I do not go out often Section 9 Traveling I get some pain when traveling , but none of my usual forms of travel m Section 10 Changing Degreee of Pain My pain is rapidly getting worse Score and Risk Level Oswestry Sc 26 Oswestry Risk Level Severe Disability Rehab Re-assessment Subjective Subjective Pt reports she felt like she was 30-40% improved since starting PT until the mid-end of last week. Pt reports increased low back pain since the mid-end of last week without known trauma or injury . Pt also reports pain is now referring into the right posterior hip. Pt reports she could not attend PT in 2 weeks due to scheduling issues. Pt reports she has been compliant with her HEP without worsening or improving of symptoms. Pt reports she had an injection higher in her spine on 04/24/24. Pt reports pain has worsened since the injection. Pt reports pain at worst as 10/10 on VAS over the past two weeks. Pt reports she returns to pain management on 05/09/24 for her next follow-up visit. Objective Objective Notes Palpation: / TTP of L lumbar paraspinals, R gluteal mm, and L4-S1 SP Lumbar AROM: flex 85, ext 20, LLF 12, RLF 15 Assessment Assessment Notes Pt has attended 10 PT visits consisting of aerobic exercise , lumbar mobility, LE stretching, LE/core strengthening, dry needling and HEP with good tolerance. Pt demonstrated slight regression in JENNA score and lumbar flexion AROM this date compared to the previous reassessment. Pt reported improvement in overall pain/ symptoms until last week although has attended PT in 2 weeks due to scheduling issues . Pt educated on importance of compliance with PT POC to assist with overall pain and progress. Overall, the pt would continue to benefit from skilled PT to further improve subjective report of pain, lumbar AROM, LE/core strength and functional activity tolerance to improve overall QOL. Patient goals met ST/ LT/6 Goals Not Met p! at worst, Revised Goals n/a Plan Plan Continue initial POC. Add prone press ups and incorporate dry needling as needed. Frequency of Therapy 2x/week Duration of therapy 4 more weeks Time and Billing Re-Eval Time 10 Re-Eval Billing Units 1 PHYSICIAN CERTIFICATION: I certify the specified therapy services for Pushpa Escamilla are required, authorized, and reviewed every 30 days.
== END 2024-05-15 23:59 | disposition home or self-care (01) ==
LOC: PT 17:00
PROVIDERS: Visit Provider Nurse Practitioner Family
DX: M54.50 Low back pain, unspecified (principal)
CPT/HCPCS: 20560; 97014; 97110; 97140; 97163; 97164; 97530; G0283

== ENCOUNTER 2024-06-08 09:33 | Outpatient (CLI) | payer OTHER, SELFPAY | END 2024-06-08 23:59 | disposition home or self-care (01) | PROVIDERS: PCP Internal Medicine; Visit Provider Nurse Practitioner Family | DX: M54.9 Dorsalgia, unspecified (principal) ==

== ENCOUNTER 2024-06-19 09:36 | Outpatient (CLI) | payer OTHER, SELFPAY ==
--- NOTE | 2024-06-19 09:40 | MR_ITS ---
FINAL REPORT TECHNIQUE: Multiplanar MR without contrast CLINICAL HISTORY: THORACIC PAIN FINDINGS: The vertebral heights are normal. Marrow signal pattern is unremarkable. Alignment is normal. Thoracic spinal cord shows a normal MR appearance. Minimal annular disc bulges at T6-7, T7-8, and T8-9. There is mild facet arthropathy at T9-10 and T10-11. There is no canal stenosis present. IMPRESSION: Mild degenerative changes in the lower thoracic spine without canal stenosis or acute fracture. Reviewed, Interpreted and Dictated by Mervat Guillen MD Transcribed by Marilee Jensen Authenticated and [facility]
== END 2024-06-19 23:59 | disposition home or self-care (01) ==
LOC: RAD 09:37
PROVIDERS: PCP Internal Medicine; Visit Provider Nurse Practitioner Family
DX: M54.6 Pain in thoracic spine (principal)
CPT/HCPCS: 72146

== ENCOUNTER 2024-06-25 08:49 | Outpatient (POV) | payer OTHER, SELFPAY ==
--- NOTE | 2024-06-25 09:20 | EXP.PAIN.SOA ---
[facility] Disclaimer: The information contained in this section may have been updated after the patient was seen, as this information can be updated by other users. Medical History PCOS (polycystic ovarian syndrome) Encounter for pre-operative cardiovascular clearance Anemia Shoulder pain, bilateral X-rays of the shoulders bilaterally did reveal degenerative change. I will discuss potential of injections with her when I see her back. Additionally we could consider MRI or sending her to orthopedics. Both of these are options. I think we could try injections if this does not work I would send her to therapeutics. Morbid obesity CKD (chronic kidney disease), stage II Patient comes with this diagnosis however GFR has been 75-104 over the last 3 visits. I do not see any reason to continue with this diagnosis in this patient although we will be checking kidney function in the future. Hypertension Arthritis Hyperkalemia Implantable loop recorder present Edema Dyspnea Primary osteoarthritis of right knee Chronic pain of right knee Aftercare following left knee joint replacement surgery Afib Bilateral knee pain Primary osteoarthritis of knees, bilateral Morbid obesity with BMI of 50.0-59.9, adult Complicates all aspects of care Surgical History History of hysteroscopy History of endometrial ablation Status post left knee replacement History of H/O arthroscopic knee surgery H/O tubal ligation H/O adenoidectomy History of tonsillectomy Hx of cholecystectomy Family History Other Family history of hypertension No significant family history Social History Smoking Status: Former smoker alcohol intake: current alcohol intake frequency: holidays/special occasions only substance use type: denies use current occupational status: other Travel in the last 8 weeks: None household members: spouse housing: house current occupational exposures/hazards: No caffeine: Yes Have you lived/traveled outside [place] in past 30 days?: No Contact w/someone who lives/traveled outside US past 30 days?: No Exposure to someone with infectious disease in past 14 days?: No Do you have a fever (greater than 100.4 F or 38 C)?: No Have you tested positive for COVID-19: No Exposed to someone with COVID-19 in past 14 days?: No Do you have a sore throat?: No Do you have a cough?: No Do you have any weakness?: No Do you have any diarrhea?: No Are you experiencing any unusual bleeding?: No Do you have any muscle aches/pain?: No Do you have any abdominal pain?: No Are you experiencing loss of taste or smell?: No PM Subjective & Objective Subjective Subjective:: Patient is a pleasant 54-year-old female who presents today for follow-up of imaging of her thoracic spine. Today she rates her pain a 5 out of 10. She denies any new trauma or injury. Patient does state that she is still having the mid back pain that just does not seem to want to go away. Patient was tried with a thoracic epidural of T11-T12 on 04/24/2024 however this did not provide significant improvement. Patient is currently managed with baclofen 5 mg 3 times a day. She denies any side effects from this medication. Her Willi has been reviewed and is appropriate. Review of Systems: General: No recent weight changes, no fever, no sleep disturbances Respiratory: No cough, no shortness of air, no recurring pulmonary infections Cardiovascular/peripheral vascular: No chest pain, no palpitations, no edema, no shortness of breath Gastrointestinal: No new onset incontinence, normal bowel movements reported Genitourinary: No new onset incontinence Musculoskeletal: Mid back pain Psychiatric: [Normal mood/affect] Neurological: [Denies weakness in extremities], [denies balance issues] Pain at rest (0-10 scale): 5 Objective Objective:: Physical Exam: General: Alert and oriented x3, no acute distress, pleasant and cooperative Lungs: Respirations even and unlabored, symmetrical chest expansion Eyes: PERRL Musculoskeletal: Flexion and extension of thoracic [spine] somewhat guarded secondary to pain, [antalgic gait noted] Neurological: Speech clear, no gross sensory deficit Has patient had previous pain injection?: No Conservative treatment options previously tried: Home exercise plan Length of treatment: Longer than 12 weeks Meds Home Medications and Allergies Home Medications ?Medication ?Instructions ?Recorded ?Confirmed ?Type aspirin 81 mg tablet,delayed 81 mg PO DAILY [facility] 11/10/21 06/05/24 History release (Adult Aspirin Regimen) biotin 10,000 mcg capsule 10,000 mcg PO DAILY Supplement 09/24/22 06/05/24 History metformin 500 mg tablet 500 mg PO BID Diabetes 10/21/22 06/05/24 History omeprazole 20 mg capsule,delayed See Rx Instructions .Route 07/25/23 06/05/24 Rx release .COMPLEX #90 caps losartan 100 mg tablet See Rx Instructions .Route 02/06/24 06/05/24 Rx .COMPLEX #90 tabs acetaminophen 500 mg capsule 1,200 mg PO DAILY 02/20/24 06/05/24 History ferrous sulfate 142 mg (45 mg 142 mg PO DAILY 02/20/24 06/05/24 History iron) tablet,extended release ibuprofen 800 mg tablet 800 mg PO DAILY 02/20/24 06/05/24 History atorvastatin 10 mg tablet See Rx Instructions .Route 03/19/24 06/05/24 Rx .COMPLEX #30 tabs spironolactone 25 mg tablet 25 mg PO DAILY 03/26/24 06/05/24 History ondansetron 8 mg disintegrating 8 mg PO Q12H #60 tabs 03/27/24 06/05/24 Rx tablet baclofen 5 mg tablet 5 mg PO TID #270 tabs 05/10/24 06/05/24 Rx carvedilol 12.5 mg tablet 12.5 mg PO BID #180 tabs 05/23/24 06/05/24 Rx carvedilol 25 mg tablet See Rx Instructions .Route 05/23/24 06/05/24 Rx .COMPLEX #180 tabs buspirone 15 mg tablet 15 mg PO TID 90 days #270 tabs 06/05/24 06/05/24 Rx cholecalciferol (vitamin D3) 50 50 mcg PO DAILY 06/05/24 06/05/24 History mcg (2,000 unit) capsule venlafaxine 150 mg 150 mg PO DAILY 90 days #90 caps 06/05/24 06/05/24 Rx capsule,extended release 24 hr New Prescriptions to Start Prescriptions: Allergies Allergy/AdvReac Type Severity Reaction Status Date / Time diphenhydramine Allergy Intermediate CRAZY Verified 06/05/24 15:28 (DIPHENHYDRAMINE) promethazine (From PHENERGAN) Allergy Intermediate CRAZY Verified 06/05/24 15:28 temazepam (TEMAZEPAM) Allergy Intermediate CRAZY Verified 06/05/24 15:28 cefaclor (From Ceclor) Allergy Verified 06/05/24 15:28 Assessment and Plan *Assessment and plan (1) Thoracic radiculopathy: Status: Acute Category: Medical Code(s): M54.14 - Radiculopathy, thoracic region (2) Mid back pain: Status: Acute Category: Medical Code(s): M54.9 - Dorsalgia, unspecified Plan I did review over her image findings of her thoracic spine that did show mild degenerative changes with bulging disc, mild facet arthropathy. I did recommend the patient try lidocaine patches and see if this does anything to improve his overall mid back pain. I will send in refills of her baclofen and provide a 3-month supply of this medication. Patient will call us for her next follow-up appointment. Patient has been instructed to contact the clinic with any concerns before the next appointment. Dr. Hagen has reviewed this note and agrees with this plan of care. This note was dictated using voice recognition software and make contain errors or omissions. All injections are used with Lidocaine, Bupivacaine and Depo Medrol. Occasionally urine drug screen is needed to verify patient's compliance with our office pain contract. This is ordered based off specific treatments related to chronic pain with the potential to abuse certain medications.
[2024-06-25 11:01] VITALS: BP 146/68; PULSE 71; RESP 14; O2SAT 96
== END 2024-06-25 23:59 | disposition home or self-care (01) ==
PROVIDERS: PCP Internal Medicine; Visit Provider Nurse Practitioner Family
DX: M54.14 Radiculopathy, thoracic region (principal); M54.9 Dorsalgia, unspecified; Z96.652 Presence of left artificial knee joint; Z87.891 Personal history of nicotine dependence; Z79.899 Other long term (current) drug therapy
CPT/HCPCS: 99212; G0463

== ENCOUNTER 2024-07-18 15:10 | Outpatient (CLI) | payer OTHER, SELFPAY ==
--- NOTE | 2024-07-18 15:10 | US_ITS ---
PROCEDURE: US TRANSVAGINAL CLINICAL INDICATION: f/u on mass COMPARISON: US US TRANSVAGINAL from 01/12/2024 FINDINGS: Transvaginal sonographic images of the pelvis were obtained. UTERUS: 6.1 cm x 4.2cmx 2.6 cm anteverted with a combined endometrial thickness of 2mm. The previously described mass in the cervix is no longer present. There is a nabothian cyst in the cervix. LEFT OVARY: 2.1cmx0.9 cmx1.4cm with a volume of 1.3ml. Difficult to visualize. RIGHT OVARY: 0.9 cmx 0.8 cmx1.9 cm with a volume of 0.7ml. Both ovaries are seen and appear normal. Doppler flow to both ovaries are seen. There is no fluid in the cul-de-sac. IMPRESSION: 1. Small atrophic appearing anteverted uterus. The endometrium is thin measuring 2 mm. 2. The previously described mass in the cervix is no longer present. 3. Both ovaries are seen and appear atrophic. The left ovary is more difficult to visualize. 4. No fluid in the cul-de-sac. Dictated by: Colton Bernardo MD 07/18/2024 16:24 Colton Bernardo MD in OV 07/18/2024 16:24
== END 2024-07-18 23:59 | disposition home or self-care (01) ==
LOC: RAD 15:10
PROVIDERS: PCP Internal Medicine; Visit Provider Nurse Practitioner Obstetrics & Gynecology
DX: N88.8 Other specified noninflammatory disorders of cervix uteri (principal)
CPT/HCPCS: 76830

== ENCOUNTER 2024-12-14 10:39 | Outpatient (CLI) | payer OTHER, SELFPAY ==
--- OUTSIDE RECORDS SUMMARY | 2024-10-06 17:30 | XMS_ITS ---
Author Organization [facility] [place] Address [address] [facility] [address] [place] [address] Care Team Providers Care Criminal Investigative Agent Name Role Phone Darwin [place] Primary Care Provider Rich Bhardwaj Unavailable [phone] Migration, Provider Unavailable Unavailable Allergies Allergen (clinical drug ingredient) Drug/Non Drug Allergy documented on EMR Reaction Allergy Type Onset Date Status CECLOR (uncoded) hives Allergy Act roni REASON FOR VISIT [facility] Conversion Encounter Medications Medication SIG (Take, Route, Frequency, Duration) Notes Start Date End Date Status Fluconazole 150 MG 1 tab(s) orally once for 1 day 08/03/2021 Active Aspirin 81 MG 1 tab(s) orally once a day for 30 day(s) Active Amoxicillin-Pot Clavulanate 875-125 MG 1 tab(s) orally every 12 hours for 10 day(s) 07/24/2021 Active Phentermine HCl 37.5 MG 1 tab(s) orally once a day for 30 day(s) 07/24/2021 Active metFORMIN HCl 500 MG 1 tab(s) orally 2 t imes a day for 30 Active PROzac 20 MG 1 cap(s) orally once a day for 30 days Active Diflucan 150 MG 1 tab(s) orally once today, repeat in 3 days prn for 3 days 08/08/2021 Active Ibuprofen 200 MG 1 tab(s) orally ever y 6 hours prn Active Biotin 5 MG 1 tab(s) orally once a day Active Omeprazole 20 MG 1 cap(s) orally once a day for 30 Active Encounters Encounter Location Date Provider Diagnosis [facility] IM PED [place] [address] [place] [address] 10/06/2024 Provider Migration Subacute maxillary sinusitis J01.00 [...] Fluconazole 150 MG 1 tab(s) orally once for 1 day 08/03/2021 Amoxicillin-Pot Clavulanate 875-125 MG 1 tab(s) orally every 12 hours for 10 day(s) 07/24/2021 Phentermine HCl 37.5 MG 1 tab(s) orally once a day for 30 day(s) 07/24/2021 Diflucan 150 MG 1 tab(s) orally once today, repeat in 3 days prn for 3 days 08/08/2021 Progress Notes * Pushpa WASHBURN MDOB: [birth year] (54 yo F)Acc No.[id number]:10/06/2024 Patient: Jose Elias Pushpa AN Maciej Provider: Frieda Lopez :1970 A ge:54 Y S ex:Female Date:10/06/2024 Address:[address] [place] [address] [address] [facility] Pcp:Darwin [place] Subjective: * Chief Complaints: * 1 . Multum To Medispan Conversion Encounter. * Medical History: * Medications: [...] Electronic signature of Prov ider Migration on 12/14/2024 at 10:45 AM EDT Sign off status: Pending * Provider: Frieda rey Migration Date: 0 10/06/2024 Generated for Marisol simmons/Karen/Félixitting on: 0 12/14/2024 10:45 AM EDT
--- OUTSIDE RECORDS SUMMARY | 2024-12-14 10:45 | XMS_ITS | Patient Health Record ---
Author Organization [facility] Address [address] [facility] [address] [place], [place] [address] Care Team Providers Care Surgical Services Coordinator Name Role Phone Darwin [place] Primary Care Provider Rcih Bhardwaj Unavailable [phone] Migration, Provider Unavailable Unavailable Allergies Allergen (clinical drug ingredient) Drug/Non Drug Allergy documented on EMR Reaction Allergy Type Onset Date Status CECLOR (uncoded) hives Allergy Act roni Medications Medication SIG (Take, Route, Frequency, Duration) Notes Start Date End Date Status Fluconazole 150 MG 1 tab(s) orally once for 1 day 08/03/2021 Active PROzac 20 MG 1 cap(s) orally once a day for 30 days Active Diflucan 150 MG 1 tab(s) orally once today, repeat in 3 days prn for 3 days 08/08/2021 Active Ibuprofen 200 MG 1 tab(s) orally ever y 6 hours prn Active Biotin 5 MG 1 tab(s) orally once a day Active Aspirin 81 MG 1 tab(s) orally once a day for 30 day(s) Active Amoxicillin-Pot Clavulanate 875-125 MG 1 tab(s) orally every 12 hours for 10 day(s) 07/24/2021 Active Phentermine HCl 37.5 MG 1 tab(s) orally once a day for 30 day(s) 07/24/2021 Active metFORMIN HCl 500 MG 1 tab(s) orally 2 t imes a day for 30 Active Omeprazole 20 MG 1 cap(s) orally once a day for 30 Active Immunizations Vaccine Route Administration Date Status Comme nts Hep A Adult 2 Dose IM Intramuscular 07/14/2018 Administere d Hep A Adult 2 Dose IM Intramuscular 03/01/2019 Administere d Social History Tobacco Use: Social History Observation Description Date Details (start date - stop date) Former Smoker NA - NA Smoking: Question Answer Notes Are you a: former smoker How long has it been since you last smoked? > 10 years Problems Problem Type SNOMED Code ICD Code Onset Dates Problem Status W/U Status Risk Notes Problem 862131171 Major depressive disorder, single episode, mild (F32.0) Active confirmed Problem 2538084 Primary insomnia (F51.01) Active confirmed Problem 513409194 PCOS (polycystic ovarian syndrome) (E28.2) Active confirmed Problem 508316838 Gastroesophageal reflux disease, esophagitis presence not specified (K21.9) Active confirmed Problem 302949221 Morbid obesity w ith body mass index (BMI) greater than or equal to 50 (E66.01) Active confirmed Encounters Encounter Location Date Provider Diagnosis [facility] [place] [address] [place] [address] 10/06/2024 Provider Migration Subacute maxillary sinusitis J01.00 [...] 50 (ICD-10 - E66.01) Plan Of Treatment Pending Test Test Name Order Date MRI : Knee, Right 10/22/2009 Physical Therapy 08/08/2013 Mammogram : Bilateral 12/03/2020 M-Complete Blood Count Auto Diff 020 M-Comprehensive Metabolic Panel 12/03/19 21 M-Comprehensive Metabolic Panel 02/08/20 20 M-Hemoglobin A1C 02/08/2020 M-Hemoglobin A1C 12/02/2020 M-Lipid Panel 02/08/2020 Insurance Providers Payer Name Payer Address Payer Phone Subscriber Number Group Number Insured Name Patient Relationship to Insured Coverage Start Date Coverage End Date R [address] [address] [place] [address] [id number] [phone] Pushpa Escamilla Self - patient is the insured Medications Administered Medication Instructions Date of Administration Dosage Notes Ceftriaxone 500 05/10/2014 500 mL Kenalog 05/10/2014 1 mL Medical (General) History Medical History History ICD Code cholecystitis bronchitis Surgical History Surgery Date(Month/Year) lt knee scope 03/2018 Hospitalization History Reason Date(Month/Year) colitis,hypokylemia,diarhea 09/2015 pneumonia 07/2017
--- OUTSIDE RECORDS SUMMARY | 2024-12-14 10:45 | XMS_ITS | Clinical Summary ---
Author Organization [facility] Address [address] [facility] [place] [address] [place] [address] Care Team Providers Care Cupola Tender Helper Name Role Phone Unavailable Primary Care Provider Unavailabl e Social History Tobacco Use Types Packs/Day Years Used Date Smoking Tobacco: Never Assessed Comments Unknown Sex and Gender Information Value Date Recorded Sex Assigned at Not on file Legal Sex Female 7:28 AM EDT Gender Identity Not on file Sexual Orientation Not on file Plan of Treatment Health Maintenance Due Date Last Done Comments Annual Wellness Exam 02/29/1972 DTaP/TDaP/Td (1 - Tdap) 02/29/1988 Hepatitis B Vaccine (1 of 3 - 19+ 3-dose series) 02/29/1988 Cologuard 2014 Colon Cancer Screening 2014 Colonoscopy 2014 FIT 2014 Sigmoidoscopy 2014 Virtual Colonography 2014 Pneumococcal Vaccine 50+ (1 of 1 - PCV) 2019 Zoster (1 of 2) 2019 COVID-19 Vaccine ( - 2023-2 5 season) 2024 Influenza Vaccine (Season Ended) 2025 Meningococcal B Vaccine Aged Out No l onger eligible based on patient's age to complete this topic
[2024-12-14 11:26] LABS: Basophils # 0.1 K/mm3 (0-0.2); Basophils % 0.6 % (0.1-2.0); Eosinophils # 0.2 Kmm3 (0.0-0.4); Eosinophils % 1.6 % (0.1-12.0); Hematocrit 37.4 % (37.0-47.0); Hemoglobin 11.5 g/dL (12.2-16.2); Immature Granulocytes # 0.04 10^3uL; Immature Granulocytes % 0.3 %; Lymphocytes # 2.4 K/mm3 (0.7-4.5); Lymphocytes % 19.6 % (10-50); Mean Corpuscular HGB Conc 30.7 g/dL (31.8-35.4); Mean Corpuscular Hemoglobin 26.4 pg (27.0-31.2); Mean Corpuscular Volume 85.8 fl (81-99); Monocytes # 0.5 K/mm3 (0.1-1.0); Neutrophils % 73.9 % (37.0-80.0); Nucleated Red Blood Cells # 0 10^3/uL; Nucleated Red Blood Cells % 0 %; Platelet Count 301 K/mm3 (142-424); Red Blood Count 4.36 M/mm3 (4.20-5.40); Red Cell Distribution Width-SD 47.3 fL; White Blood Count 12.1 K/mm3 (4.8-10.8)
[2024-12-14 11:47] LABS: Alanine Aminotransferase 15 U/L (12-78); Albumin Level 4.2 g/dl (3.5-5.0); Albumin/Globulin Ratio 1.4 (1.1-1.8); Alkaline Phosphatase 82 U/L (38-126); Anion Gap 10.2 mEq/L (5-15); Aspartate Amino Transferase 21 U/L (14-36); Bilirubin,Total 0.4 mg/dl (0.2-1.3); Blood Urea Nitrogen 10 mg/dl (7-17); Calcium 9.4 mg/dl (8.4-10.2); Carbon Dioxide 28 mmol/L (22.0-30.0); Chloride 105 mmol/L (98-107); Chol/HDL Ratio 3.1 (1-3.5); Cholesterol 127 mg/dl (140-200); Estimated Glomerular Filt Rate 104 ml/min (>60); GFR (African American) 126 ML/MIN (>60); Globulin 2.9 g/dL (1.3-3.2); Glucose 100 mg/dl (74-100); HDL Cholesterol 41 mg/dl (40-60); Potassium 4.2 mmoL/L (3.5-5.1); Sodium 139 mmol/L (136-145); Total Protein,Serum 7.1 g/dl (6.3-8.2); Triglycerides 94 mg/dl (30-150); VLDL Cholesterol 19 mg/dL (0-40)
[2024-12-14 11:58] LABS: Direct LDL Cholesterol 62.04 mg/dL (100-129)
[2024-12-14 12:03] LABS: 25-OH Vitamin D, Total 75.9 ng/mL (30-100)
[2024-12-14 12:50] LABS: Hemoglobin A1C 5.4 % (4.0-6.0)
== END 2024-12-14 23:59 | disposition home or self-care (01) ==
LOC: LAB 10:40
PROVIDERS: PCP Family Medicine; Visit Provider Family Medicine
DX: Z00.00 Encounter for general adult medical examination without abnormal findings (principal); R73.03 Prediabetes
CPT/HCPCS: 36415; 80053; 80061; 82306; 83036; 85025

== ENCOUNTER 2025-06-24 09:00 | Day surgery (SDC) | payer OTHER, SELFPAY ==
[2025-06-24 09:03] VITALS: BMI 43.9
[2025-06-24 09:15] VITALS: BP 142/91; PULSE 87; PULSE 88; O2SAT 95
[2025-06-24] MEDS: LIDOCAINE 2% W/EPI 1:100,000 20ML VIAL 20 ML SUBCUT (09:28)
[2025-06-24 10:52] VITALS: BP 156/87; PULSE 90; RESP 18; TEMP 36.6; O2SAT 95
--- NOTE | 2025-06-24 12:24 | P.PCN_ITS ---
[facility] Loop Recorder Date: 06/24/25 Time: 10:00 Procedure Performed:: Loop recorder removal Indication:: Device at JASON/EOS Technique:: Patient was brought to the cardiac Supervisor Unloading as an outpatient. After informed consent was obtained, 1% lidocaine was used to anesthetize the area over the device. Surgical scalpel was used to dissect down to the device and forceps used for removal. Edges approximated with Steri-Strips and pressure dressing was applied. Patient tolerated procedure without complications Impression:: Successful loop recorder removal Serial Number:: Not documented Plan:: Routine postop care
== END 2025-06-24 10:55 | disposition home or self-care (01) ==
LOC: CATHLAB 09:01
PROVIDERS: PCP Family Medicine; Visit Provider Internal Medicine
DX: I48.0 Paroxysmal atrial fibrillation (principal); Z45.09 Encounter for adjustment and management of other cardiac device; I12.9 Hypertensive chronic kidney disease with stage 1 through stage 4 chronic kidney disease, or unspecified chronic kidney disease; N18.2 Chronic kidney disease, stage 2 (mild); E66.01 Morbid (severe) obesity due to excess calories; Z68.41 Body mass index [BMI] 40.0-44.9, adult; Z87.891 Personal history of nicotine dependence; Z79.82 Long term (current) use of aspirin; Z79.1 Long term (current) use of non-steroidal anti-inflammatories (NSAID); Z79.84 Long term (current) use of oral hypoglycemic drugs; Z79.899 Other long term (current) drug therapy; Z88.1 Allergy status to other antibiotic agents; Z88.8 Allergy status to other drugs, medicaments and biological substances; Z82.49 Family history of ischemic heart disease and other diseases of the circulatory system
CPT/HCPCS: 33286; J2004

== ENCOUNTER 2025-06-25 08:18 | Outpatient (CLI) | payer OTHER, SELFPAY ==
--- OUTSIDE RECORDS SUMMARY | 2024-10-06 16:30 | XMS_ITS ---
Author Organization [facility] PE D GIOV[place] Address [address] [facility] [address] [place] [address] Care Team Providers Care Heel Top Lift Splitter Name Role Phone Darwin [place] Primary Care Provider Rich Bhardwaj Unavailable [phone] Migration, Provider Unavailable Unavailable Allergies Allergen (clinical drug ingredient) Drug/Non Drug Allergy documented on EMR Reaction Allergy Type Onset Date Status CECLOR (uncoded) hives Allergy Act roni REASON FOR VISIT [facility] Conversion Encounter Medications Medication SIG (Take, Route, Frequency, Duration) Notes Start Date End Date Status Fluconazole 150 MG 1 tab(s) orally once ; Duration: 1 day 08/03/2021 Active Aspirin 81 MG 1 tab(s) orally once a day; Duration: 30 day(s) Active Amoxicillin-Pot Clavulanate 875-125 MG 1 tab(s) orally every 12 hours; Duration: 10 day(s) 07/24/2021 Active Phentermine HCl 37.5 MG 1 tab(s) orally once a day; Duration: 30 day(s) 07/24/2021 Active metFORMIN HCl 500 MG 1 tab(s) orally 2 t imes a day; Duration: 30 Active PROzac 20 MG 1 cap(s) orally once a day; Duration: 30 days Active Diflucan 150 MG 1 tab(s) orally once today, repeat in 3 days prn; Duration: 3 days 08/08/2021 Active Ibuprofen 200 MG 1 tab(s) orally ever y 6 hours prn Active Biotin 5 MG 1 tab(s) orally once a day Active Omeprazole 20 MG 1 cap(s) orally once a day; Duration: 30 Active Encounters Encounter Location Date Provider Diagnosis [facility] [place] [address] [facility] [address] [place] [address] 10/06/2024 Provider Migration Subacute maxillary sinusitis J01.00 and Morbid obesity with body mass index (BMI) greater than or equal to 50 E66.01 Assessments Encounter Date Diagnosis (ICD Code) Assessment Notes Treatment Notes Treatment Clinical Notes Section Notes 10/06/2024 Subacute maxillary sinusitis (ICD-10 - J01.00) 10/06/2024 Morbid obesity with body mass index (BMI) greater than or equal to 50 (ICD-10 - E66.01) Plan Of Treatment Medication Medication Name Sig Start Date Stop Date Notes Fluconazole 150 MG 1 tab(s) orally once ; Duration: 1 day 08/03/2021 Amoxicillin-Pot Clavulanate 875-125 MG 1 tab(s) orally every 12 hours; Duration: 10 day(s) 07/24/2021 Phentermine HCl 37.5 MG 1 tab(s) orally once a day; Duration: 30 day(s) 07/24/2021 Diflucan 150 MG 1 tab(s) orally once today, repeat in 3 days prn; Duration: 3 days 08/08/2021 Progress Notes * Pushpa WASHBURN MDOB: [birth year] (55 yo F)Acc No.[id number]:10/06/2024 Patient: Pushpa ALBERTO Maciej Provider: Frieda Lopez :1970 A ge:54 Y S ex:Female Date:10/06/2024 Address:[address] [place] [address] [id number] [id number] Pcp:Darwin [place] Subjective: * Chief Complaints: * 1 . [facility] Conversion Encounter. * Medical History: * Medications: T aking Aspirin 81 MG Tablet Delayed Release 1 tab(s) orally once a day , Taking Biotin 5 MG Tablet Disintegrating 1 tab(s) orally once a day , Taking Ibuprofen 200 MG Tablet 1 tab(s) orally every 6 hours , Notes to Pharmacist: prn, Taking PROzac 20 MG Capsule 1 cap(s) orally once a day , Taking Omeprazole 20 MG Capsule Delayed Release 1 cap(s) orally once a day , Taking metFORMIN HCl 500 MG Tablet 1 tab(s) orally 2 times a day * Allergies: C ECLOR: hives. Objective: * Vitals: Assessment: * Assessment: 1. S ubacute maxillary sinusitis - J01.00 (Primary) 2 . M orbid obesity with body mass index (BMI) greater than or equal to 50 - E66.01 Plan: * Treatment: 2. M orbid obesity with body mass index (BMI) greater than or equal to 50 Refill Phentermine HCl Tablet, 37.5 MG, 1 tab(s), orally, once a day, 30 day(s), 30 Tablet, Refills 0. 3. O thers Start Fluconazole Tablet, 150 MG, 1 tab(s), orally, once, 1 day, 1 tab, Refills 1; S tart Diflucan Tablet, 150 MG, 1 tab(s), orally, once today, repeat in 3 days prn, 3 days, 2, Refills 0. ? * * Electronic signature of Prov ider Migration on 06/25/2025 at 08:21 AM EST Sign off status: Pending * Provider: Frieda rey Migration Date: 0 10/06/2024 Generated for Marisol simmons/Karen/Carla on: 08/26/2024 08:21 AM EST
--- OUTSIDE RECORDS SUMMARY | 2025-06-25 08:21 | XMS_ITS | Patient Health Record ---
Author Organization [facility] Address [address] [facility] [address] [place], [place] [address] Care Team Providers Care Electrical Maintenance Engineer Name Role Phone Darwin [place] Primary Care Provider Rich Bhardwaj Unavailable [phone] Migration, Provider Unavailable Unavailable Allergies Allergen (clinical drug ingredient) Drug/Non Drug Allergy documented on EMR Reaction Allergy Type Onset Date Status CECLOR (uncoded) hives Allergy Act roni Medications Medication SIG (Take, Route, Frequency, Duration) Notes Start Date End Date Status Fluconazole 150 MG 1 tab(s) orally once ; Duration: 1 day 08/03/2021 Active PROzac 20 MG [...] t imes a day; Duration: 30 Active Omeprazole 20 MG 1 cap(s) orally once a day; Duration: 30 Active Immunizations Vaccine Route Administration Date [...] Problem Status W/U Status Risk Notes Problem Mild major depression, single episode (84946433) Major depressive disorder, single episode, mild (F32.0) Active confirmed Problem Primary insomnia (5883051) Primary insomnia (F51.01) Active confirmed Problem Polycystic ovary syndrome (disorder) (575270889) PCOS (polycystic ovarian syndrome) (E28.2) Active confirmed Problem Gastroesophageal reflux disease (575794854) Gastroesophageal reflux disease, esophagitis presence not specified (K21.9) Active confirmed Problem Morbid obesity (335662432) Morbid obesity with body mass index (BMI) greater than or equal to 50 (E66.01) Active confirmed Encounters Encounter Location Date Provider Diagnosis [facility] PED [place] [address] [facility] [address] [place] [address] 10/06/2024 Provider Migration Subacute maxillary sinusitis J01.00 [...] Insured Coverage Start Date Coverage End Date [employer] [address] [address] [place] [address] [id number] [phone] Pushpa Escamilla Self - patient is the insured Medications Administered Medication Instructions Date of Administration Dosage Notes Ceftriaxone 500 05/10/2014 500 mL Kenalog 05/10/2014 1 mL Medical (General) History Medical History History ICD Code cholecystitis bronchitis Surgical History Surgery Date(Month/Year) lt knee scope 03/2018 Hospitalization History Reason Date(Month/Year) colitis,hypokylemia,diarhea 09/2015 pneumonia 07/2017
--- OUTSIDE RECORDS SUMMARY | 2025-06-25 08:21 | XMS_ITS | Clinical Summary ---
Author Organization [facility] Address [address] [facility] [address] [place] [address] Care Team Providers Care Nuisance Animal Damage Control Agent Name Role Phone Unavailable Primary Care Provider [...] of 2) 2019 COVID-19 Vaccine ( - 2024-2 6 season) 2025 Influenza Vaccine (#1) 2025 Meningococcal B Vaccine Aged Out No l onger eligible based on patient's age to complete this topic
[2025-06-25 08:34] LABS: Hematocrit 37.8 % (37.0-47.0); Hemoglobin 12.0 g/dL (12.2-16.2); Immature Granulocytes % 0.3 %; Mean Corpuscular HGB Conc 31.7 g/dL (31.8-35.4); Mean Corpuscular Hemoglobin 25.9 pg (27.0-31.2); Mean Corpuscular Volume 81.6 fl (81-99); Nucleated Red Blood Cells % 0 %; Platelet Count 415 K/mm3 (142-424); Red Blood Count 4.63 M/mm3 (4.20-5.40); Red Cell Distribution Width-SD 44.8 fL; White Blood Count 11.5 K/mm3 (4.8-10.8)
[2025-06-25 08:59] LABS: Hemoglobin A1C 5.2 % (4.0-6.0)
[2025-06-25 09:10] LABS: Albumin Level 4.1 g/dl (3.5-5.0); Chloride 106 mmol/L (98-107); Potassium 4.3 mmoL/L (3.5-5.1); Sodium 141 mmol/L (136-145)
[2025-06-25 09:13] LABS: Alanine Aminotransferase 19 U/L (12-78); Albumin/Globulin Ratio 1.4 (1.1-1.8); Alkaline Phosphatase 85 U/L (38-126); Anion Gap 13.3 mEq/L (5-15); Aspartate Amino Transferase 21 U/L (14-36); Bilirubin,Total 0.3 mg/dl (0.2-1.3); Blood Urea Nitrogen 12 mg/dl (7-17); Calcium 10.0 mg/dl (8.4-10.2); Carbon Dioxide 26 mmol/L (22.0-30.0); Creatinine,Serum 0.80 mg/dl (0.52-1.04); Estimated Glomerular Filt Rate 74 ml/min (>60); GFR (African American) 90 ML/MIN (>60); Globulin 3.0 g/dL (1.3-3.2); Glucose 110 mg/dl (74-100); Iron 46 ug/dL (37-170); Total Protein,Serum 7.1 g/dl (6.3-8.2)
[2025-06-25 09:22] LABS: Total Iron Binding Capacity 312 ug/dL (265-497)
[2025-06-25 09:44] LABS: Thyroid Stimulating Hormone 1.09 uIU/mL (0.465-4.68)
[2025-06-25 09:48] LABS: Ferritin 43.5 ng/ml (11.1-264)
[2025-06-25 10:00] LABS: Hepatitis C Ab Qual. W/ RFX NEGATIVE (Negative)
[2025-06-26 07:14] LABS: Hepatitis B Surface Antigen Negative (Negative)
== END 2025-06-25 23:59 | disposition home or self-care (01) ==
LOC: LAB 08:18
PROVIDERS: PCP Family Medicine; Visit Provider Family Medicine
DX: D64.9 Anemia, unspecified (principal); E11.9 Type 2 diabetes mellitus without complications; R79.89 Other specified abnormal findings of blood chemistry; Z11.59 Encounter for screening for other viral diseases
CPT/HCPCS: 36415; 80053; 82728; 83036; 83540; 83550; 84443; 85025; 86803; 87340; 87389

== ENCOUNTER 2025-07-01 16:43 | Outpatient (CLI) | payer OTHER, SELFPAY ==
--- OUTSIDE RECORDS SUMMARY | 2024-10-06 16:30 | XMS_ITS ---
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 Name Role Phone Darwin [place] Primary Care Provider [phone] Rich Bhardwaj Unavailable [phone] Migration, Provider Unavailable Unavailable Allergies Allergen (clinical drug ingredient) Drug/Non Drug Allergy documented on EMR Reaction Allergy Type Onset Date Status cefaclor CECLOR (uncoded) hives Allergy Act roni REASON FOR VISIT [facility] Conversion Encounter Medications Medication SIG (Take, Route, Frequency, Duration) Notes Start Date End Date Status Fluconazole 150 MG Tablet 1 tab(s) orall y once; Duration: 1 day 08/03/2021 Active Aspirin 81 MG Tablet Delayed Release 1 tab(s) orally once a day; Duration: 30 day(s) Active Amoxicillin-Pot Clavulanate 875-125 MG Tablet 1 tab(s) orally every 12 hours; Duration: 10 day(s) 07/24/2021 Active Phentermine HCl 37.5 MG Tablet 1 tab(s) orally once a day; Duration: 30 day(s) 07/24/2021 Active metFORMIN HCl 500 MG Tablet 1 tab(s) ora lly 2 times a day; Duration: 30 Active PROzac 20 MG Capsule 1 cap(s) orally onc e a day; Duration: 30 days Active Diflucan 150 MG Tablet 1 tab(s) orally o nce today, repeat in 3 days prn; Duration: 3 days 08/08/2021 Active Ibuprofen 200 MG Tablet 1 tab(s) orally every 6 hours prn Active Biotin 5 MG Tablet Disintegrating 1 tab(s) orally once a day Active Omeprazole 20 MG Capsule Delayed Release 1 cap(s) orally once a day; Duration: 30 Active Encounters Encounter Location Date Provider Diagnosis [facility] IM PED [place] [address] [facility] [address] [place] [address] 10/06/2024 Provider Migration Subacute maxillary sinusitis J01.00 [...] Date Stop Date Notes Fluconazole 150 MG Tablet 1 tab(s) orall y once; Duration: 1 day 08/03/2021 Amoxicillin-Pot Clavulanate 875-125 MG Tablet 1 tab(s) orally every 12 hours; Duration: 10 day(s) 07/24/2021 Phentermine HCl 37.5 MG Tablet 1 tab(s) orally once a day; Duration: 30 day(s) 07/24/2021 Diflucan 150 MG Tablet 1 tab(s) orally o nce today, repeat in 3 days prn; Duration: 3 days 08/08/2021 Progress Notes * Pushpa WASHBURN MDOB: [birth year] (55 yo F)Acc No.[id number]:10/06/2024 Patient: Pushpa Pantoja Provider: Frieda rey Migration :1970 A ge:54 Y S ex:Female Date:10/06/2024 Address:[facility] [facility] [address] [place] Pcp:Darwin [place] Subjective: * Chief Complaints: * M ultum To Medispan Conversion Encounter * Medications: T akingAspirin 81 MG Tablet Delayed Release 1 tab(s) orally once a day Biotin 5 MG Tablet Disintegrating 1 tab(s) orally once a day Ibuprofen 200 MG Tablet 1 tab(s) orally every 6 hours , Notes to Pharmacist: prnPROzac 20 MG Capsule 1 cap(s) orally once a day Omeprazole 20 MG Capsule Delayed Release 1 cap(s) orally once a day metFORMIN HCl 500 MG Tablet 1 tab(s) orally 2 times a day Taking Aspirin 81 MG Tablet Delayed Release 1 tab(s) orally once a day Taking Biotin 5 MG Tablet Disintegrating 1 tab(s) orally once a day Taking Ibuprofen 200 MG Tablet 1 tab(s) orally every 6 hours , Notes to Pharmacist: prnTaking PROzac 20 MG Capsule 1 cap(s) orally once a day Taking Omeprazole 20 MG Capsule Delayed Release 1 cap(s) orally once a day Taking metFORMIN HCl 500 MG Tablet 1 tab(s) orally 2 times a day * Allergies: C ECLOR: hives Assessment: * Assessment: 1. S ubacute maxillary [...] prn, 3 days, 2, Refills 0. ? Billing Information: * Procedure Codes: * Electronic signature of Prov ider Migration on 07/01/2025 at 04:46 PM EST Sign off status: Pending * Provider: Frieda rey Migration Date: 0 10/06/2024 Generated for Marisol simmons/Karen/Carla on: 1 04:46 PM EST
--- OUTSIDE RECORDS SUMMARY | 2025-07-01 16:46 | XMS_ITS | Patient Health Record ---
Author Organization [facility] Address [address] [facility] [address] [place], [place] [address] Care Team Providers Care Laborer Car Barn Name Role Phone Darwin [place] Primary Care Provider Rich Bhardwaj Unavailable [phone] Migration, Provider Unavailable Unavailable Allergies Allergen (clinical drug ingredient) Drug/Non Drug Allergy documented on EMR Reaction Allergy Type Onset Date Status cefaclor CECLOR (uncoded) hives Allergy Act roni Medications Medication SIG (Take, Route, Frequency, Duration) Notes Start Date End Date Status Fluconazole 150 MG Tablet 1 tab(s) orall y once; Duration: 1 day 08/03/2021 Active PROzac 20 MG Capsule 1 cap(s) orally onc e a day; Duration: 30 days Active Diflucan 150 MG Tablet 1 tab(s) orally o nce today, repeat in 3 days prn; Duration: 3 days 08/08/2021 Active Ibuprofen 200 MG Tablet 1 tab(s) orally every 6 hours prn Active Biotin 5 MG Tablet Disintegrating 1 tab(s) orally once a day Active Aspirin 81 MG Tablet Delayed Release [...] 2 times a day; Duration: 30 Active Omeprazole 20 MG Capsule Delayed Release [...] stop date) Former Smoker NA - NA Social History Social History Social Info Question Answer Notes Smoking: Are you a: former smoker How long has it been since you last smoked? 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 [place]: no Alcohol: no Sexually active: yes Recreational drug use: no Exercise: no Home smoke detector use: yes Caffeine: yes frequency: all d ay long Living Will No Problems Problem Type SNOMED Code ICD Code Onset Dates Problem Status W/U Status Risk Notes Problem Mild major depression, single episode (33395927) Major depressive disorder, single episode, mild (F32.0) Active confirmed Problem Primary insomnia (6190275) Primary insomnia (F51.01) Active confirmed Problem Polycystic ovary syndrome (disorder) (602734052) PCOS (polycystic ovarian syndrome) (E28.2) Active confirmed Problem Gastroesophageal reflux disease (623787928) Gastroesophageal reflux disease, esophagitis presence not specified (K21.9) Active confirmed Problem Morbid obesity (537045333) Morbid obesity with body mass index (BMI) greater than or equal to 50 (E66.01) Active confirmed Encounters Encounter Location Date Provider Diagnosis [facility] [place] [address] [facility] [address] [place] [address] 10/06/2024 Provider Migration Subacute maxillary sinusitis J01.00 [...] Coverage End Date R [address] [address] [place] [address] [id number] [phone] Pushpa Escamilla Self - patient is the insured Medications Administered Medication Instructions Date of Administration Dosage Notes Ceftriaxone 500 05/10/2014 500 mL Kenalog 05/10/2014 1 mL Medical (General) History Medical History History ICD Code cholecystitis bronchitis Surgical History Surgery Date(Month/Year) lt knee scope 03/2018 Hospitalization History Reason Date(Month/Year) colitis,hypokylemia,diarhea 09/2015 pneumonia 07/2017
--- OUTSIDE RECORDS SUMMARY | 2025-07-01 16:46 | XMS_ITS | Clinical Summary ---
Author Organization [facility] Address [address] [facility] [address] [place] [address] Care Team Providers Care Sanitarian Aide Name Role Phone Unavailable Primary Care Provider [...]
== END 2025-07-01 23:59 | disposition home or self-care (01) ==
LOC: LAB 16:44
PROVIDERS: PCP Family Medicine; Visit Provider Family Medicine
DX: D64.9 Anemia, unspecified (principal); E11.9 Type 2 diabetes mellitus without complications; R79.89 Other specified abnormal findings of blood chemistry
CPT/HCPCS: 82043; 82570